=== PATIENT | female | born 1965 | race Caucasian/White ===

== ENCOUNTER 2020-02-29 13:16 | Inpatient (IN) | payer MEDICAID ==
[~2020-02-29] VITALS: Ht 154 cm; Wt 50.0 kg
--- NOTE | 2020-02-29 11:39 | NUR ---
MED REC WAS ENTERED USING THE DISCHARGE ORDERS FROM [facility]. AFTER MEDS ARE CONTINUED I WILL SPEAK WITH THE PT AND MAKE ANY CHANGES TO THE MED REC/NOTES IF NEEDED. I CALLED THE PT ON HER SISTER CELL ([facility] IS TRANSPORTING HER TO ) AND VERIFIED SHE TAKES DULOXETINE 30MG + 60MG TO EQUAL 90MG ONCE DAILY. THERE IS NO EXT MED HISTORY AT THIS TIME SO I COULDNT NOT VERIFY THE DOSING USING THAT RECOURSE
--- NOTE | 2020-02-29 13:15 | NUR ---
PEDRO SHELBY admitted to room 224-1, with an admitting diagnosis of CVA, on 02/29/20 from [facility] via PRIVATE VEHICLE, accompanied by SISTER. PEDRO SHELBY introduced to surroundings, call light, bed controls, phone, TV, temperature control, lights, meal times, smoking policy, visitor policy, side rail policy, bathrooms and showers. Patient Rights given to patient in the handbook. PEDRO SHELBY verbalizes understanding that [facility] is not responsible for the loss or damage to any personal effects or valuables that are kept in the patient's possession during their hospitalization. The following Patient Care Plans were discussed with the PATIENT: Discharge Planning, ALTERED CEREBRAL TISSUE PERFUSION, IMPAIRED MOBILITY, SELF CARE DEFICIT, and KNOWLEDGE DEFICIT: CVA. PEDRO SHELBY verbalizes understanding of Interdisciplinary Patient Education. Patient received Patient Rights Booklet, which includes Privacy Act Statement and Data Collection Information Summary.
[~2020-02-29 13:16] MED LIST: ACETAMINOPHEN 500 MG TAB (TYLENOL) PO PRN; ALOG25TA PO; AMLO2.5T4 PO; ASPI-1238 PO; ATOR40TA70 PO; BISACODYL 10 MG SUPP (DULCOLAX) PR PRN; CARB15DR OU; CHOL200014 PO; CLOP75TA69 PO; DOCUSATE SODIUM 100 MG (COLACE) CAP PO PRN; DOCUSATE SODIUM 100 MG (COLACE) CAP PO SCH; DULO30CA49 PO; DULO60CA59 PO; FLEET ENEMA ADULT 1 EA BTL PR PRN; FLUT9.9S NS; GBPN600T PO; INSU100V16 SQ; INSU100V6 SQ; LACTULOSE SYRUP 10GM/15ML (ENULOSE) 30ML UDC PO PRN; LOPERAMIDE 2 MG (IMODIUM) TABLET PO PRN; LORA10TA7 PO; MELATONIN 3 MG TABLET PO PRN; METF-399 PO; MOME13HF2 IH; MONT10TA97 PO; ONDA4TAB11 PO; ONDANSETRON 4 MG (ZOFRAN) ORAL DISSOLVE TAB PO PRN; POLY17PO6 PO; RT-ALBUINH IH; TRZ50T PO; diphenhydrAMINE 25 MG TAB (BENADRYL) PO PRN; guaiFENesin/CODEINE (ROBITUSSIN AC) 10ML UDC PO PRN; polyethylene glycoL POWDER 17 GM (MIRALAX) PACK PO SCH
--- NOTE | 2020-02-29 13:54 | PM&R Post Admission Assessment ---
PM&R Date of Visit: Feb 29, 2020 Time of Visit: 13:30 History of Present Illness CC: CVA HPI: This is a 54yoWF clinic patient of Paula Schmidt at [facility] who has a h/o DM, HTN, CVA 5 yrs ago who presents to the IRF from [facility] in private vehicle for aggressive rehab following an acute right thalamic infarct. Neurology recommended ASA, Plavix and Lipitor. She continued to smoke and she reports she has a marijuana card. Feet are chronically discolored she reports and there is a right lateral ankle ulceration which was present prior to CVA admit which needs wound care. BM+ and urinating well. She was assessed by PT and in need of aggressive therapy. Left sided hemiparesis will need intense management. She was 2 hours later than expected on arrival to IRF from private vehicle from [facility] and considering h/o meth use a UDS ordered revealing THC. Past Ruiljml-Zpslrt-Qddohe Hx Past Med/Social Hx: Reviewed Nursing Past Med/Soc Hx, Reviewed and Corrections made Patient Social History Marrital Status: single Employed/Student: unemployed Recreational Drug Use: Yes Drug of Choice: THC Smoking Status: Current Everyday Smoker Immunizations Up To Date Date of Pneumonia Vaccine: Dec 06, 2017 PM&R Allergy/Meds/Data Review Allergies Coded Allergies: latex (Verified Allergy, Unknown, Hives, 02/29/20) simvastatin (Verified Allergy, Unknown, 02/29/20) Home Medications Scheduled Alogliptin Benzoate (Nesina), 25 MG PO DAILY, (Reported) Amlodipine Besylate (Amlodipine Besylate), 2.5 MG PO DAILY, (Reported) Aspirin (Aspirin EC), 81 MG PO DAILY, (Reported) Atorvastatin Calcium (Atorvastatin Calcium), 40 MG PO HS, (Reported) Cholecalciferol (Vitamin D3) (Vitamin D3), 100 MCG PO DAILY, (Reported) Clopidogrel Bisulfate (Plavix), 75 MG PO DAILY, (Reported) Duloxetine HCl (Duloxetine HCl), 30 MG PO DAILY, (Reported) Duloxetine HCl (Duloxetine HCl), 60 MG PO DAILY, (Reported) Gabapentin (Gabapentin), 600 MG PO QID, (Reported) Insulin Aspart (Novolog), UNIT SQ AC, (Reported) Insulin Glargine,Hum.rec.anlog (Lantus), 40 UNIT SQ BID, (Reported) Metformin HCl (Metformin HCl), 1,000 MG PO BID WITH MEALS, (Reported) Mometasone/Formoterol (Dulera 100 Mcg/5 Mcg Inhaler), 2 PUFF IH BID, (Reported) Montelukast Sodium (Montelukast Sodium), 10 MG PO HS, (Reported) Trazodone HCl (Trazodone HCl), 50 MG PO HS, (Reported) Scheduled PRN Albuterol Sulfate (Proair Hfa), 1-2 PUFF IH Q4 -6H PRN for SHORTNESS OF BREATH, (Reported) Carboxymethylcellulose Sodium (Refresh Tears), 1 DROP OU DAILY PRN for EYE DISCOMFORT, (Reported) Fluticasone Propionate (Flonase Allergy Relief), 2 SPRAY NS DAILY PRN for RHINITIS, (Reported) Loratadine (Loratadine), 10 MG PO DAILY PRN for ALLERGY SYMPTOMS, (Reported) Ondansetron (Ondansetron Odt), 4 MG PO Q8H PRN for NAUSEA/VOMITING-1ST LINE, (Reported) Polyethylene Glycol 3350 (Miralax), 17 GM PO DAILY PRN for CONSTIPATION-2ND LINE, (Reported) Current Medications Current Medications Reviewed Review of Systems Constitutional: see HPI, malaise, weakness Respiratory: dyspnea on exertion Musculoskeletal: back pain, joint pain Psychiatric/Neurological: Anxiety, Depressed, Tingling, Weakness All Other Systems Reviewed Negative Unless Noted: Yes Physical Exam Physical Exam Vital Signs Capillary Refill : Height, Weight, BMI Height: '" Weight: lbs. oz. kg; BMI Method: General Appearance: No Apparent Distress, WD/WN, Chronically ill, Thin Eyes: Bilateral Eye Normal Inspection, Bilateral Eye PERRL HEENT: PERRL/EOMI, Normal ENT Inspection, Pharynx Normal Neck: Full Range of Motion, Normal Inspection, Non Tender, Supple, Carotid Bruit Respiratory: Chest Non Tender, Lungs Clear, Normal Breath Sounds, No Accessory Muscle Use, No Respiratory Distress Cardiovascular: Regular Rate, Rhythm, No Edema, No Gallop, No JVD, No Murmur, Normal Peripheral Pulses Gastrointestinal: Normal Bowel Sounds, No Organomegaly, No Pulsatile Mass, Non Tender, Soft Back: Normal Inspection, No CVA Tenderness, No Vertebral Tenderness Extremity: Normal Capillary Refill, Normal Inspection, Normal Range of Motion, Non Tender, No Calf Tenderness, No Pedal Edema Neurologic/Psychiatric: Alert, Oriented x3, Normal Mood/Affect, manager digital II-XII Norm as Tested, Abnormal Gait, Motor Weakness (left sided weakness 2/5 upper and lower) Skin: Normal Color, Warm/Dry, Cyanosis (chronic type of feet to mid-tibia) Lymphatic: No Adenopathy PM&R Medical Assessment & Plan REHAB/MEDICAL ASSESSMENT AND PLAN: REHAB IMPAIRMENT GROUP: CVA with left sided weakness ETIOLOGIC DIAGNOSIS: CVA with left sided weakness The comorbidities that impact the patients function and/or functional outcome by: continued smoking and MIGDALIA, frail status at 54yo, prior CVA REHAB PLAN: The patient is being admitted to our comprehensive inpatient rehabilitation facility and can tolerate the intensity of service consisting of at least: 180 minutes of therapy a day, 5 out of 7 days a week Rehab treatment will consist of: PT OT will focus on regaining left sided weakness deficit and increase ADL ability along with ambulation The patient/family has a good understanding of our discharge process and will benefit from an interdisciplinary inpatient rehabilitation program. The patient has potential to make improvement and is in need of at least two of the following multidisciplinary therapies including but not limited to physical, occupational, speech, and prosthetics and orthotics. Additionally the patient will need services from respiratory, nutritional services, wound care, psychology, etc. (Customize this to each patient). Given the patients complex condition and risk of further medical complications, rehabilitation services cannot be safely or effectively provided at a lower level of care such as a nursing home facility. BARRIERS TO DISCHARGE: Poor reserve and continued smoking ESTIMATED LOS: 10 days DISPOSITION: Home RELEVANT CHANGES SINCE PREADMISSION SCREENING: I have compared the patients medical and functional status at the time of the preadmission screening and there are: no changes PROGNOSIS: Fair REHABILITATION GOALS: 1. PT OT will focus on regaining left sided weakness deficit and increase ADL ability along with ambulation All the above goals were reviewed with the patient and he/she is in agreement. By signing this document, I acknowledge that I have personally performed a full physical examination on this patient within 24 hours of admission to this inpatient rehabilitation facility and have determined the patient to be able to tolerate the above course of treatment at an intensive level for a reasonable period of time. I will be completing a detailed individualized Plan of Care for this patient by day #4 of the patients stay based upon the Preadmission Screen, the Post-Admission Evaluation, and the therapy evaluations. Admission Dx/Comorbidities: (1) CVA (cerebral vascular accident) ICD Codes: I63.9 - Cerebral infarction, unspecified (2) Smoker ICD Codes: F17.200 - Nicotine dependence, unspecified, uncomplicated (3) Methamphetamine use ICD Codes: F15.10 - Other stimulant abuse, uncomplicated (4) Tetrahydrocannabinol (THC) dependence ICD Codes: F12.20 - Cannabis dependence, uncomplicated (5) Diabetes mellitus, insulin dependent (IDDM), uncontrolled (6) Hypertension ICD Codes: I10 - Essential (primary) hypertension (7) Hyperlipidemia ICD Codes: E78.5 - Hyperlipidemia, unspecified (8) Frailty ICD Codes: R54 - Age-related physical debility (9) PVD (peripheral vascular disease) ICD Codes: I73.9 - Peripheral vascular disease, unspecified (10) Ankle ulcer ICD Codes: L97.309 - Non-pressure chronic ulcer of unspecified ankle with unspecified severity Assessment/Plan Assessment and Plan Assess & Plan/Chief Complaint Assessment: CVA with left sided weakness Smoker THC dependent Chronic pain DM insulin dependent HTN HLP PVD Right ankle ulcer Plan: Home meds Plavix, ASA, statin IRF protocol JESI MCDONALD DO Feb 29, 2020 13:54
[2020-02-29] MEDS ORDERED: NON-FORMULARY MEDICATION 1 EA EA (Fluticasone Propionate (Flonase Allergy Relief) 2 SPRAY) NS PRN (14:00)
[2020-02-29] MEDS ORDERED: polyethylene glycoL POWDER 17 GM (MIRALAX) PACK PO PRN (14:00)
[2020-02-29] MEDS ORDERED: LORATADINE (CLARITIN) 10 MG TAB PO PRN (14:00)
[2020-02-29] MEDS ORDERED: ENOXAPARIN 40 MG/0.4 ML (LOVENOX) SYR SC SCH (14:00)
[2020-02-29] MEDS ORDERED: RT-ALBUTEROL SULF 2.5 MG/3 ML PRE-MIX VIAL IH PRN (14:00)
[2020-02-29] MEDS ORDERED: NON-FORMULARY MEDICATION 1 EA EA (Carboxymethylcellulose Sodium (Refresh Tears) 1 DROP) OU PRN (14:00)
[2020-02-29] MEDS ORDERED: ONDANSETRON 4 MG (ZOFRAN) ORAL DISSOLVE TAB PO PRN (14:00)
[2020-02-29] MEDS ORDERED: FLUTICASONE NASAL SPRAY (FLONASE) 16 GM BTL NS PRN (14:15)
[2020-02-29] MEDS ORDERED: ARTIFICAL TEARS 0.4 ML UNIT DOSE (REFRESH PLUS) OU PRN (14:15)
--- NOTE | 2020-02-29 14:28 | Physical Therapy Evaluation ---
PT Evaluation-General Medical Diagnosis Admission Date Feb 29, 2020 at 13:16 Medical Diagnosis: CVA Onset Date: Feb 26, 2020 Therapy Diagnosis Therapy Diagnosis: impaired mobility, strength, endurance, left hemiparesis Referral Physician: Wen Mackey DO Reason for Referral: Evaluation/Treatment Medical History Pertinent Medical History: CVA, DM, HTN Reviewed History: Yes Social History Home: Single Level Current Living Status: Children Entry Into Home: Stairs With Railing PT Steps Into Home: 4 Prior Prior Level of Function SCALE: Activities may be completed with or without assistive devices. 2-Tlspkluyic-yezwsej completes the activity by him/herself with no assistance from a helper. 5-Set-up or Clean-up Assistance-helper sets up or cleans up; patient completes activity. [place] assists only prior to or following the activity. 4-Supervision or Touching Assistance-helper provides verbal cues and/or touching/steadying and/or contact guard assistance as patient completes activity. Assistance may be provided throughout the activity or intermittently. 3-Partial/Moderate Assistance-helper does LESS THAN HALF the effort. [place] lift s, holds or supports trunk or limbs, but provides less than half the effort. 2-Substantial/Maximal Assistance-helper does MORE THAN HALF the effort. [place] lifts or holds trunk or limbs and provides more than half the effort. 0-Eppvvmzms-dbndxw does ALL the effort. Patient does none of the effort to complete the activity. Or, the assistance of 2 or more helpers is required for the patient to complete the activity. If activity was not attempted, code reason: 7-Patient Refused. 9-Not Applicable-not attempted and the patient did not perform the activity before the current illness, exacerbation or injury. 10-Not Attempted due to Environmental Limitations-(lack of equipment, weather restraints, etc.). 88-Not Attempted due to Medical Conditions or Safety Concerns. Bed Mobility: 6 Transfers (B,C,W/C): 6 Gait: 6 Stairs: 6 Indoor Mobility (Ambulation): Independent Stairs: Independent Patient states she has weakness previously but was able to ambulate without an assistive device. PT Evaluation-Current Subjective Patient in car, just got to the hospital, has no complaints of pain other than a spot on her lateral left ankle, she has a bandage there, will be co-treating with OT for part of tx due to poor patient mobility, strength, endurance, left hemiparesis, safety and decrease risk of falls, coordinate UE and LE during activity. Pt/Family Goals to be independent at home Objective Patient Orientation: Person, Place, Situation ROM/Strength ROM Lower Extremities WNL Strength Lower Extremities RLE 4/5 gross, LLE 3-/5 gross except for dorsiflexion 1/5 Sensory Vision: Functional Hearing: Functional Sensation Right Lower Extremit: Impaired Sensation Left Lower Extremity: Impaired Transfers Roll Left & Right (QC): 4 Sit to Lying (QC): 4 Lying to Sitting/Side of Bed(Q: 4 Sit to Stand (QC): 3 Chair/Xpi-fn-Alsju Xfer(QC): 3 Toilet Transfer (QC): 3 Car Transfer (QC): 3 Patient performs rolling and supine <-> sit with SBA (she has some difficulty getting left leg into and out of bed but can do it without assist), sit <-> stand and transfers min assist, car transfer min assist. Cues for safety and hand placement, will often sit forcefully. Gait Does the Patient Walk?: Yes Mode of Locomotion: Walk Anticipated Mode of Locomotion: Walk Walk 10 feet (QC): 3 Walk 50 ft with 2 Turns(QC): 3 Walk 150 ft (QC): 88 Walking 10ft/uneven surface-QC: 3 Distance: 10', 60' Gait Assistive Device: FWW Comments/Gait Description Patient can ambulate 60' with a rolling walker with min assist (including 50' with at least 2 turns of 90 degrees and 10' over an uneven surface). Patient needs assist guiding walker, has uncoordinated left side steps, she can also ambulate with POLE FRAMER on the right side with min assist. Wheelchair Training Does the Pt Use a Wheelchair?: Yes Distance: 50' Wheel 50 ft with 2 turns (QC): 3 Wheel 150 ft (QC): 88 Type of Wheelchair: Manual Stairs #of Steps: 1 1 Step (curb) (QC): 3 4 Steps (QC): 88 12 Steps (QC): 88 Patient can go up and down 1 step using a rolling walker with min assist, cues for foot placement. Balance Sitting Static: Normal Sitting Dynamic: Good Standing Static: Fair Standing Dynamic: Poor Picking up an Object (QC): 88 Treatment PT performed bed mobility and transfers, ambulation, WC mobility, stairs, assisted with bathing and dressing and grooming with standing and safety, OT per formed bathing and dressing and grooming and performed UE positioning and safety during activity. Assessment/Needs Patient has impaired mobility, strength, endurance, left hemiparesis. Patient is able to bear weight on left leg and step through with it, she has left knee hyperextension though with weight bearing. Rehab Potential: Fair PT Short Term Goals Short Term Goals Time Frame: Mar 07, 2020 Roll Left & Right: 6 Sit to lyin Lying to sitting on side of be: 6 Sit to stand: 4 Chair/fcm-ii-yhguu transfer: 4 Walk 10 feet: 4 Walk 50 feet with two turns: 4 Walk 150 feet: 4 PT Residential Goals Rigging Worker Goals PT Residential Goals Time Frame: Mar 21, 2020 Roll Left & Right (QC): 6 Sit to Lying (QC): 6 Lying-Sitting on Side/Bed(QC): 6 Sit to Stand (QC): 4 (SBA) Chair/Nsc-sl-Uvlrs Xfer(QC): 4 (SBA) Toilet Transfer (QC): 4 (SBA) Car Transfer (QC): 4 (SBA) Does the Patient Walk: Yes Walk 10 feet (QC): 4 (SBA) Walk 50ft with 2 Turns (QC): 4 (SBA) Walk 150 ft (QC): 4 (SBA) Walking 10ft on Uneven Surface: 4 (SBA) 1 Step (curb) (QC): 4 (CGA) 4 Steps (QC): 4 (CGA) 12 Steps (QC): 88 Picking up an Object (QC): 88 Does the Pt use WC or Scooter?: No Wheel 50 feet with 2 turns (QC: 6 Wheel 150 feet: 6 PT Plan Problem List Problem List: Activity Tolerance, Functional Strength, Safety, Balance, Gait, Transfer, Bed Mobility, ROM Treatment/Plan Treatment Plan: Continue Plan of Care Treatment Plan: Bed Mobility, Education, Functional Activity Cici, Functional Strength, Group Therapy, Gait, Safety, Therapeutic Exercise, Transfers Treatment Duration: Mar 21, 2020 Frequency: At least 5 of 7 days/Wk (IRF) Estimated Hrs Per Day: 1.5 hours per day Patient and/or Family Agrees t: Yes Safety Risks/Education Patient Education: Gait Training, Transfer Techniques, Steps, Correct Positioning, W/C Management, Safety Issues Teaching Recipient: Patient Teaching Methods: Demonstration, Discussion Response to Teaching: Reinforcement Needed Discharge Recommendations Plan Patient will perform bed mobility and transfer training, balance and endurance training, functional strengthening, stair training, gait training, and education, to improve functional mobility and independence at home. Therapy Discharge Recommendati: Home & Family Time/GCodes Time In: 1315 Time Out: 1425 Total Billed Treatment Time: 60 Total Billed Treatment 1 visit EVM 10' FA 50' PT eval from [id number], OT eval from [id number], co-treat from 1335- 1425 HENRY QUILES PT Feb 29, 2020 14:28
[2020-02-29] MEDS: SENNA W/DOCUSATE (SENOKOT S) TABLET PO SCH ×2 (14:30→19:48)
--- NOTE | 2020-02-29 14:31 | Occupational Therapy Eval ---
OT Evaluation-General/PLF Medical Diagnosis Admission Date Feb 29, 2020 at 13:16 Medical Diagnosis: CVA Onset Date: Feb 26, 2020 Therapy Diagnosis Therapy Diagnosis: decreased ADL status Referral Physician: Key Referral Reason: Evaluation/Treatment Medical History Pertinent Medical History: CVA, DM, HTN Additional Medical History L side weakness, HLD Current History Lacunar infarct R thalamus, L sided weakness. Pt admitted to [facility] on 02/29/2020 for continued medication management and skilled therapies. Reviewed History: Yes Social History Home: Single Level Current Living Status: Children (19 y.o daughter) Entry Into Home: Stairs With Railing Steps Into Home: 4 ADL-Prior Level of Function SCALE: Activities may be completed with or without assistive devices. 2-Osvopcahby-bevpmgl completes the activity by him/herself with no assistance from a helper. 5-Set-up or Clean-up Assistance-helper sets up or cleans up; patient completes activity. [place] assists only prior to or following the activity. 4-Supervision or Touching Assistance-helper provides verbal cues and/or touching/steadying and/or contact guard assistance as patient completes activity. Assistance may be provided throughout the activity or intermittently. 3-Partial/Moderate Assistance-helper does LESS THAN HALF the effort. [place] lifts, holds or supports trunk or limbs, but provides less than half the effort. 2-Substantial/Maximal Assistance-helper does MORE THAN HALF the effort. [place] lifts or holds trunk or limbs and provides more than half the effort. 0-Mouchvljp-jrmgsr does ALL the effort. Patient does none of the effort to complete the activity. Or, the assistance of 2 or more helpers is required for the patient to complete the activity. If activity was not attempted, code reason: 7-Patient Refused. 9-Not Applicable-not attempted and the patient did not perform the activity before the current illness, exacerbation or injury. 10-Not Attempted due to Environmental Limitations-(lack of equipment, weather restraints, etc.). 88-Not Attempted due to Medical Conditions or Safety Concerns. ADL PLOF Comments Pt indicates she was independent with ADLs and functional mobility at OF, no AD/AE. She was able to cook, clean, bath and dress, but needs assistance tying shoelaces. Self Care: Needed Some Help Functional Cognition: Independent DME/Equipment: Bath Chair, Grab Bars, Shower OT Current Status Subjective Pt agreeable to OT evaluation and tx. Pt reports some pain in L heel where she scraped it prior to hospitalization. Mental Status/Objective Patient Orientation: Person, Place, Time, Situation Current Glasses/Contacts: Yes Hearing Aids: No Dentures/Partials: Yes Hand Dominance: Right Upper Extremity ROM RUE WFL, Shoulder flexion to approx 160 degrees Decreased LUE, shoulder flexion to approx 85 degrees. Pt able to flex/extend elbow, and flex/extend fingers. Pt reports decreased LUE ROM at PLOF from prior stroke. Upper Extremity Coordination decreased due to decreased functional use of LUE Upper Extremity Sensation numbness in LUE, RUE WFL Upper Extremity Strength RUE grossly 4/5 LUE grossly 3-/5 ADL-Treatment Eating (QC): 6 (Based on pt report and clinical judgement, pt independent. Able to use utensils, cut food and bring food/drink to mouth) Oral Hygiene (QC): 4 (CGA standing at sink. Pt able to open toothpaste and brush teeth using RUE) Shower/Bathe Self (QC): 4 (CGA in stand at GBS) Upper Body Dressing (QC): 3 (Pt able to doff independently, min A donning. Assist pulling shirt over L shoulder) Lower Body Dressing (QC): 4 (CGA, pt able to doff/don pants at GBS) On/Off Footwear (QC): 3 (Pt able to doff shoes/socks. Pt donned socks with SBA. Based on clinical judgement, pt would require assistance tying shoes.) Toileting Hygiene (QC): 4 (CGA, pt able to complete toilet hygiene and clothing management) Other Treatments OT educated pt on purpose and benefit of OT, she verbalized understanding. Pt provided information about PLOF and home set up and participated in UE screen. OT/PT cotreat due to skill of 2 clinicians required which a rehabilitation counsellor could not perform in order to coordinate UE/LEs, dynamic standing balance, and due to pt's limitations in strength and endurance. OT focused on UE placement, cues for sequencing and safety and ADLs, PT focused on LE placement, gross overall movements, and mobility. Pt used FWW to walk over uneven surface, up/down 1 step, and down mccullough towards her room. Pt required seated rest break half-way. Once in room, pt completed toileting, then transferred to ND where she completed bathing/dressing. Pt used hand held assist to ambulate to sink where she brushed her hair and her teeth with CGA. Pt then transferred to bed. Post tx, pt laying in bed, call light in reach and all needs met. Education OT Patient Education: Correct positioning, Energy conservation, Modified ADL techniques, Progress toward Goal/Update tx plan, Purpose of tx/functional activities, Rehab process, Safety issues, Transfer techniques Teaching Recipient: Patient Teaching Methods: Discussion Response to Teaching: Verbalize Understanding OT Short Term Goals Short Term Goals Time Frame: Mar 13, 2020 Shower/bathe self: 5 Upper body dressin Lower body dressin Putting on/taking off footwear: 5 OT Nursing Assistant Goals [facility] Goals Time Frame: Mar 22, 2020 Eating (QC): 6 Oral Hygiene (QC): 6 Toileting Hygiene (QC): 6 Shower/Bathe Self (QC): 6 Upper Body Dressing (QC): 6 Lower Body Dressing (QC): 6 On/Off Footwear (QC): 6 Additional Goals: 1-Demonstrate ADL Tasks, 2-Verbalize Understanding, 3- ImproveStrength/Cici 1=Demonstrate adherence to instructed precautions during ADL tasks. 2=Patient will verbalize/demonstrate understanding of assistive devices/modifications for ADL. 3=Patient will improve strength/tolerance for activity to enable patient to perform ADL's. OT Education/Plan Problem List/Assessment Assessment: Decreased Activ Tolerance, Decreased UE Strength, Impaired Funct Balance, Impaired I ADL's, Impaired Self-Care Skills, Restricted Funct UE ROM Discharge Recommendations Plan/Recommendations: Continue POC Treatment Plan/Plan of Care Patient would benefit from OT for education, treatment and training to promote independence in ADL's, mobility, safety and/or upper extremity function for ADL's. Plan of Care: ADL Retraining, Functional Mobility, Group Exercise/Act as Ind, UE Funct Exercise/Act, UE Neuromus Re-Ed/Coord Treatment Duration: Mar 22, 2020 Frequency: At least 5 of 7 days/Wk (IRF) Estimated Hrs Per Day: 1.5 hours per day (1-1.5 hours per day) Agreement: Yes Rehab Potential: Fair Time/GCodes Start Time: 13:25 Stop Time: 14:25 Total Time Billed (hr/min): 60 Billed Treatment Time [id number] OT eval, [id number] cotreat 1, EVM (10'), FA (15'), ADL 2 (35') CHAGO HULL OT Feb 29, 2020 14:31
[2020-02-29 14:35] VITALS: BP 135/65
--- NOTE | 2020-02-29 14:59 | ST Cognitive Linguistic Eval ---
Speech Evaluation-General Medical Diagnosis CVA Onset Date: Feb 26, 2020 Therapy Diagnosis Therapy Diagnosis: Cognitive-communication Precautions Precautions/Isolations: Fall Prevention, Standard Precautions Referral Referring Physician: Dr. Mackey Medical History Pertinent Medical History: CVA, DM, HTN Reviewed History: Yes Social History Current Living Status: Children (19 y.o daughter) Speech PLF-Current Status Prior Level of Function Patient lives at home with her 19 y/o daughter. Daughter assists the patient with her needs due to CVA 5 years ago. Subjective Patient was pleasant and cooperative with the cognitive assessment. Language Eval: Auditory Comprehends Simple Yes/No Ques: Functional Indent/Objects Multiple [place]: Functional Ident/Pics in Multiple [place]: Functional Follows 1-Step Commands: Functional Follows Complex Directions: Functional Follows General Conversations: Functional Language Eval: Verbal Language Completes Spontaneous Greeting: Functional Produces Auto, Serial Info: Functional Imitates Simple Words/Phrases: Functional Word Finding: Functional Requests Basic Needs: Functional States Basic Personal Info: Functional Expresses Complex Ideas: Mild Objective Cognitive Domain Attention: WNL Memory: WNL Problem Solving: Functional Executive Functions: WNL Visuospatial Skills: WNL Composite Severity Rating: WNL Clock Drawing Severity Rating: WNL Objective Formal/Standardized Tests [facility] Mental Status (RUST) Results 28/30, within normal range of function Oral Motor/Speech Production Patient has some mild slurring which she states is worse when she's tired, however her intelligibility is at 90%. Impression Patient is a pleasant 54 y/o female who was admitted to the ARU s/p CVA. Patient was given the SLUMS at bedside with a score of 28/30 obtained. Patient has some mild slurring, however her intelligibility is at 90%. Patient's current level of function does not require further ST services at this time. Speech Patient Assess Expression of Ideas/Wants: Expression (4) Understanding Verbal Content: Understands (4) Brief Interview-Mental Status: Yes Repetition of Three Words: Three (3) Temporal Orientation: Year: Correct (3) Temporal Orientation: Month: Accurate within 5 days(2) Temporal Orientation: Day: Correct (1) Recall : Wear to say "Sock": Yes, no cue required (2) Recall : Color: Yes, after cueing (1) Recall : Bed: Yes,after cueing (1) Memory/Recall Ability: Current season, That he or she is in a hsp/hsp unit Speech-Plan Patient/Family Goals Patient/Family Goals: Patient plans on returning to her home where she lives with her 19 y/o daughter. Treatment Plan Speech Therapy Treatment Plan: Discontinue ST Treatment Duration: Feb 29, 2020 Frequency: 1 time per week Estimated Hrs Per Day: .5 hour per day Rehab Potential: Fair Barriers to Learning: None identified for cognitive Pt/Family Agrees to Plan: Yes Safety Risks/Education Teaching Recipient: Patient Teaching Methods: Discussion Response to Teaching: Verbalize Understanding Education Topics Provided: Safety within her room, communication of wants/needs Time Speech Therapy Time In: 14:25 Speech Therapy Time Out: 14:55 Total Billed Time: 30 Billed Treatment Time 1, NATHALY Saavedra Feb 29, 2020 14:59
[2020-02-29] MEDS: ENOXAPARIN 30 MG/0.3 ML (LOVENOX) SYR SC SCH (15:43)
[2020-02-29] MEDS: inSUlin ASPART (NovoLOG) 1 UNIT/0.01 ML (CHARGE PER UNIT) SC SCH ×2 (15:45→20:24)
[2020-02-29 16:10] LABS: BENZODIAZEPINES SCREEN URINE NEGATIVE (NEGATIVE); COCAINE SCREEN URINE NEGATIVE (NEGATIVE)
[2020-02-29 16:11] LABS: AMPHETAMINE SCREEN, URINE NEGATIVE (NEGATIVE); BARBITURATE SCREEN URINE NEGATIVE (NEGATIVE); CANNABINOID SCREEN, URINE POSITIVE (NEGATIVE); METHADONE STAT NEGATIVE (NEGATIVE); METHAMPHETAMINE SCREEN URINE S NEGATIVE (NEGATIVE); OPIATE SCREEN URINE NEGATIVE (NEGATIVE); OXYCODONE STAT NEGATIVE (NEGATIVE); PROPOXYPHENE STAT NEGATIVE (NEGATIVE); TRICYCLIC ANTIDEPRESSANTS SCRE NEGATIVE (NEGATIVE)
[2020-02-29 16:16] VITALS: BP 134/63
--- NOTE | 2020-02-29 16:53 | NUR ---
PATIENT STATES THAT SHE IS A CURRENT EVERYDAY SMOKER. REFUSING NICOTINE PATCH.
[2020-02-29] MEDS: GABAPENTIN 600 MG (NEURONTIN) TAB PO SCH ×2 (17:33→19:48)
[2020-02-29] MEDS: metFORMIN 500 MG (GLUCOPHAGE) TAB PO SCH (17:33)
[2020-02-29] MEDS ORDERED: NON-FORMULARY MEDICATION 1 EA EA (Metformin HCl 1,000 MG) PO SCH (18:00)
--- NOTE | 2020-02-29 18:24 | NUR ---
OPEN AREA NOTED ON OUTSIDE OF LEFT ANKLE. COVERED WITH ALLEVYN DRESSING. PATIENT STATES THAT SHE HIT IT ON SOMETHING A FEW WEEKS AGO AND THEN HIT IT AGAIN WHILE SHE WAS AT [facility].
[2020-02-29] MEDS: ACETAMINOPHEN 325 MG TABLET PO PRN (19:48)
[2020-02-29] MEDS: DOCUSATE SODIUM 100 MG (COLACE) CAP PO SCH (19:48)
[2020-02-29] MEDS: traZODone 50 MG (DESYREL) TAB PO SCH (19:48)
[2020-02-29] MEDS: MONTELUKAST 10 MG (SINGULAIR) TAB PO SCH (19:48)
[2020-02-29] MEDS: polyethylene glycoL POWDER 17 GM (MIRALAX) PACK PO SCH (19:49)
[2020-02-29] MEDS ORDERED: NON-FORMULARY MEDICATION 1 EA EA (Insulin Glargine,Hum.rec.anlog (Lantus) 40 UNIT) SQ SCH (21:00)
[2020-02-29] MEDS ORDERED: NON-FORMULARY MEDICATION 1 EA EA (Mometasone/Formoterol (Dulera 100 Mcg/5 Mcg Inhaler) 2 P IH SCH (21:00)
[2020-02-29] MEDS: ADVAIR HFA 45/21 MCG INHALER 8 GM IH SCH (21:53)
[2020-03-01 05:44] VITALS: BP 121/65
[2020-03-01] MEDS: inSUlin ASPART (NovoLOG) 1 UNIT/0.01 ML (CHARGE PER UNIT) SC SCH ×4 (05:49→21:03)
[2020-03-01] MEDS ORDERED: NON-FORMULARY MEDICATION 1 EA EA (Duloxetine HCl 60 MG) PO SCH (09:00)
[2020-03-01] MEDS ORDERED: ALOGLIPTIN BENZOATE 25 MG PO SCH (09:00)
[2020-03-01] MEDS ORDERED: NON-FORMULARY MEDICATION 1 EA EA (Cholecalciferol (Vitamin D3) (Vitamin D3) 100 MCG) PO SCH (09:00)
[2020-03-01] MEDS: polyethylene glycoL POWDER 17 GM (MIRALAX) PACK PO SCH ×2 (09:08→21:05)
[2020-03-01] MEDS: GABAPENTIN 600 MG (NEURONTIN) TAB PO SCH ×4 (09:09→21:04)
[2020-03-01] MEDS: amLODIPine 2.5MG (NORVASC) TAB PO SCH (09:09)
[2020-03-01] MEDS: SENNA W/DOCUSATE (SENOKOT S) TABLET PO SCH ×2 (09:09→21:05)
[2020-03-01] MEDS: LINAGLIPTIN (TRADJENTA) 5 MG TABLET PO SCH (09:09)
[2020-03-01] MEDS: metFORMIN 500 MG (GLUCOPHAGE) TAB PO SCH ×2 (09:09→17:54)
[2020-03-01] MEDS: DULoxetine 30 MG (CYMBALTA) CAP PO SCH ×2 (09:09→09:10)
[2020-03-01] MEDS: ASPIRIN E.C. 81 MG (ECOTRIN) TAB PO SCH (09:09)
[2020-03-01] MEDS: DOCUSATE SODIUM 100 MG (COLACE) CAP PO SCH ×2 (09:09→21:05)
[2020-03-01] MEDS: VITAMIN D3 25 MCG (1,000 UNITS) TABLET PO SCH (09:10)
[2020-03-01] MEDS: CLOPIDOGREL 75 MG (PLAVIX) TABLET PO SCH (09:10)
[2020-03-01 10:28] LABS: BASOPHILS # (AUTO) 0.1 10^3/uL (0.0-0.1); BASOPHILS % (AUTO) 1 % (0-10); EOSINOPHILS # (AUTO) 0.2 10^3/uL (0.0-0.3); EOSINOPHILS % (AUTO) 3 % (0-10); HEMATOCRIT 39 % (35-52); HEMOGLOBIN 12.8 g/dL (11.5-16.0); LYMPHOCYTES # (AUTO) 2.1 10^3/uL (1.0-4.0); LYMPHOCYTES % (AUTO) 24 % (12-44); MEAN CORPUSCULAR HEMOGLOBIN 30 pg (25-34); MEAN CORPUSCULAR HGB CONC 33 g/dL (32-36); MEAN CORPUSCULAR VOLUME 89 fL (80-99); MEAN PLATELET VOLUME 10.5 fL (9.0-12.2); MONOCYTES # (AUTO) 0.6 10^3/uL (0.0-1.0); MONOCYTES % (AUTO) 7 % (0-12); NEUTROPHILS # (AUTO) 5.7 10^3/uL (1.8-7.8); NEUTROPHILS % (AUTO) 66 % (42-75); PLATELET COUNT 195 10^3/uL (130-400); WHITE BLOOD COUNT 8.6 10^3/uL (4.3-11.0)
[2020-03-01 10:40] LABS: ALBUMIN 3.1 GM/DL (3.2-4.5); CHLORIDE 107 MMOL/L (98-107); POTASSIUM 4.1 MMOL/L (3.6-5.0); SODIUM 144 MMOL/L (135-145)
[2020-03-01 10:42] LABS: CALCIUM 8.3 MG/DL (8.5-10.1)
[2020-03-01 10:43] LABS: GLUCOSE 198 MG/DL (70-105); TOTAL PROTEIN 5.4 GM/DL (6.4-8.2)
[2020-03-01 10:44] LABS: CARBON DIOXIDE 26 MMOL/L (21-32)
[2020-03-01 10:45] LABS: BILIRUBIN,TOTAL 0.3 MG/DL (0.1-1.0)
[2020-03-01 10:46] LABS: ALKALINE PHOSPHATASE 71 U/L (40-136); CREATININE SERUM 0.58 MG/DL (0.60-1.30); GFR ESTIMATED > 60
[2020-03-01 10:48] LABS: BUN/CREATININE RATIO 33
[2020-03-01 10:49] LABS: ALANINE AMINOTRANSFERASE 11 U/L (0-55)
[2020-03-01] MEDS: ADVAIR HFA 45/21 MCG INHALER 8 GM IH SCH ×2 (11:15→22:28)
--- NOTE | 2020-03-01 11:44 | Individualized Plan of Care ---
Individualized Plan of Care Rehab Nursing IPOC Order Admission Date Feb 29, 2020 at 13:16 Current Orders Orders Admission Order(Inpt,Obs,Sdc) (02/28/20 20:24) Vital Signs: Per Unit Policy ( 08,16,00 (02/28/20 20:24) Lionel Zhou 09,21 (02/28/20 20:24) Sequential Compression Device Q4H (02/28/20 20:24) Yarn Man-Inpt Rehab Con (02/28/20 20:24) Rehab Nursing Orders-Ipoc (02/28/20 20:24) Physical Therapy Rehab Orders (02/28/20 20:24) Occupational Therapy Rehab Ord (02/28/20 20:24) Speech Therapy Rehab Orders (02/28/20 20:24) General/Regular (02/29/20 Breakfast) Intake & Output 06,14,22 (02/28/20 20:24) Precautions (Aru) (02/28/20 20:24) Weekly Weight WEEK (02/28/20 20:24) Rehab-Intensity Of Therapy (02/28/20 20:24) Initiate Admission Nursing Pro .admission (02/28/20 20:24) Acetaminophen Tablet (Tylenol Tablet) (02/28/20 20:30) Alprazolam Tablet (Xanax Tablet) (02/28/20 20:30) Calcium Carbonate Chew Tablet (Antacid C (02/28/20 20:30) Diphenhydramine Tablet (Benadryl Tablet) (02/28/20 20:30) Docusate Sodium Capsule (Colace Capsule) (02/28/20 21:00) Docusate Sodium Capsule (Colace Capsule) (02/28/20 20:30) Bisacodyl Suppository (Dulcolax Supposit (02/28/20 20:30) Lactulose Oral Solution (Enulose Oral So (02/28/20 20:30) Na Phos/Na Biphos Enema (Fleet Enema Ras (02/28/20 20:30) Guaifenesin/Codeine Syrup (Robitussin Ac (02/28/20 20:30) Loperamide Tablet (Imodium Tablet) (02/28/20 20:30) Melatonin Tablet (Melatonin Tablet) (02/28/20 20:30) Polyethylene Glycol Powder Pkt (Miralax (02/28/20 21:00) Ondansetron Oral Dissolve Tab (Zofran (02/28/20 20:30) Senna S Tablet (Senokot S Tablet) (02/28/20 21:00) Initiate Admission Nursing Pro .admission (02/28/20 20:24) Follow-Up Appointment (02/29/20 10:54) Drug Screen Stat (Urine) (02/29/20 12:54) Admission Arrival Bed Request (02/29/20 13:16) Acetaminophen Tablet/Caplet (Tylenol T (02/29/20 13:30) Docusate Sodium Capsule (Colace Capsule) (02/29/20 21:00) Polyethylene Glycol Powder Pkt (Miralax (02/29/20 21:00) Albuterol Pre-Mix Nebs (Rt) (Proventil (02/29/20 14:00) Amlodipine Tablet (Norvasc Tablet) (03/01/20 09:00) Aspirin Enteric Coated Tablet (Ecotrin T (03/01/20 09:00) Atorvastatin Tablet (Lipitor) (02/29/20 21:00) Clopidogrel Tablet (Plavix Tablet) (03/01/20 09:00) Duloxetine Capsule (Cymbalta Capsule) (03/01/20 09:00) Gabapentin Capsule/Tablet (Neurontin Cap (02/29/20 17:00) Loratadine Tablet (Claritin Tablet) (02/29/20 14:00) Montelukast Tablet (Singulair Tablet) (02/29/20 21:00) Ondansetron Oral Dissolve Tab (Zofran (02/29/20 14:00) Polyethylene Glycol Powder Pkt (Miralax (02/29/20 14:00) Trazodone Tablet (Desyrel Tablet) (02/29/20 21:00) (Nf) Alogliptin Benzoate (Nesina) (03/01/20 09:00) (Nf) Carboxymethylcellulose Sodium (Refr (02/29/20 14:00) (Nf) Cholecalciferol (Vitamin D3) (Vitam (03/01/20 09:00) (Nf) Duloxetine Hcl (03/01/20 09:00) (Nf) Fluticasone Propionate (Flonase All (02/29/20 14:00) (Nf) Insulin Glargine,Hum.Rec.Anlog (James (02/29/20 21:00) (Nf) Metformin Hcl (02/29/20 18:00) (Nf) Mometasone/Formoterol (Dulera 100 M (02/29/20 21:00) Enoxaparin Injection (Lovenox Injection) (02/29/20 14:00) Duloxetine Capsule (Cymbalta Capsule) (03/01/20 09:00) Cholecalciferol Capsule/Tablet (Vitamin (03/01/20 09:00) Insulin Determir (Per Unit) (Levemir (Pe (02/29/20 21:00) Fluticasone Nasal [place] (Flonase Nasal S (02/29/20 14:15) Metformin Tablet (Glucophage Tablet) (02/29/20 18:00) Carboxymethylcell Ophth Soln (Refresh Pl (02/29/20 14:15) Fluticasone/Salmeterol 45/21 (Advair Hfa (02/29/20 20:00) Insulin Aspart (Novolog) (Novolog (Charg (02/29/20 16:00) Accucheck Achs ACHS (02/29/20 14:08) Cho 60g/M 1snack (16-2000 Ricardo) (02/29/20 Lunch) Linagliptin Tablet (Tradjenta Tablet) (03/01/20 09:00) Patient Visit (02/29/20 ) Pt Eval Moderate Complexity (02/29/20 ) Functional Activities, Ea 15 (02/29/20 ) Patient Visit (02/29/20 ) Speech Sound Lang Comp (02/29/20 ) Enoxaparin Injection (Lovenox Injection) (02/29/20 15:00) Ambulate 08,12,20 (02/29/20 15:07) Sequential Compression Device Q4H (02/29/20 15:07) Dvt/Vte Risk - Notifiy Physici Q4H (02/29/20 15:07) Edu Tobacco/Smoking Cessation .prn (02/29/20 15:17) Cbc With Automated Diff (03/01/20 10:08) Comprehensive Metabolic Panel (03/01/20 10:08) Hemoglobin A1c (03/01/20 10:08) Bisacodyl Suppository (Dulcolax Supposit (03/01/20 12:00) Bisacodyl Suppository (Dulcolax Supposit (03/01/20 12:00) Soap Suds Enema (03/01/20 11:54) Lactulose Oral Solution (Enulose Oral So (03/01/20 12:00) Lactulose Oral Solution (Enulose Oral So (03/01/20 21:00) Magnesium Citrate Oral Soln (Citrate Of (03/01/20 12:00) Rehab Nursing Orders: Ongoing Assess. of Function Status, Bladder Management, Bladder Scan, Bladder Training, Bowel Management, Bowel Training, Disease Management & Educaiton, DVT Prophylaxis, Fall Prevention, Fluid /Electrolyte/Nutrition Mgmt, Infection Prevention, Medication Management & Education, Management of Risks & Complications, Management of Skin Intergrity, Nutrition Management, Pain Management, Patient/Family Support, Safety Management, Wound Management Intensity of Therapy to be met Patient to be seen: Min.3h per day/5 of 7d PT IPOC Problem List: Activity Tolerance, Functional Strength, Safety, Balance, Gait, Transfer, Bed Mobility, ROM Treatment Plan: Continue Plan of Care Bed Mobility, Education, Functional Activity Cici, Functional Strength, Group Therapy, Gait, Safety, Therapeutic Exercise, Transfers Treatment Duration: Mar 21, 2020 Frequency: Modified Program (IRF) Estimated Hrs Per Day: 1.5 hours per day OT IPOC Problems: Decreased Activ Tolerance, Decreased UE Strength, Impaired Funct Balance, Impaired I ADL's, Impaired Self-Care Skills, Restricted Funct UE ROM OT Treatment, Training and Edu: Yes Plan of Care: ADL Retraining, Functional Mobility, Group Exercise/Act as Ind, UE Funct Exercise/Act, UE Neuromus Re-Ed/Coord Treatment Duration: Mar 22, 2020 Frequency: 5 times per week Estimated Hrs Per Day: 1.[address] IPOC Speech Therapy Treatment Plan: Discontinue ST Treatment Duration: Feb 29, 2020 Frequency: 1 time per week Estimated Hrs Per Day: .5 hour per day Yarn Man/Case Mgmt Yarn Man/Case Managemen: Discharge Planning Dietitian/Eggs Inspector Dietitian/Eggs Inspector to monitor nutritional status and make changes and/or recommendations as needed and work with speech pathology on dietary upgrades as the occur. Physician IPOC Medical Issues being managed closely and that require the 24 hour availability of a physician: Recent catastrophic CVA with DM with labile levels and smoker and high risk for decompensation will need close physician supervision Medical Issues: Bowel/Bladder Function, DVT Prophylaxis, Falls Precautions, Fluid/Electrolyte/Nutrition Balance, Infection Protection, Pain Management, Wound Care Brief Synthesis of Preadmission Screen, Post-Admission Evaluation, and Therapy Evaluations: PT OT will focus on regaining function with ambulation and ADL's and will need aggressive treatment with use of AD in order to return home with daughter Medical Prognosis: Fair Anticipated Length of Stay: 14 days JESI MCDONALD DO Mar 01, 2020 11:44
--- NOTE | 2020-03-01 11:44 | PM&R Progress Note ---
Subjective HPI/CC On Admission Date Seen by Provider: Mar 01, 2020 Time Seen by Provider: 10:00 Subjective/Events-last exam 03/01/20: Settling in well No pain reported Labs checked and all stable No BM since 02/17 so will initiate more aggressive regimen Left sided weakness is a challenge for the patient Conferred with metal tester of Systems General: Fatigue Neurological: Weakness, Incoordination Objective Exam Vital Signs Vital Signs Date Time Temp Pulse Resp B/P (MAP) Pulse Ox O2 Delivery O2 Flow Rate FiO2 03/01/20 16:37 37.6 92 16 143/73 (96) 97 03/01/20 09:00 Room Air Capillary Refill : Less Than 3 Seconds General Appearance: No Apparent Distress, WD/WN, Chronically ill, Thin HEENT: PERRL/EOMI, Normal ENT Inspection, Pharynx Normal Neck: Full Range of Motion, Normal Inspection, Non Tender, Supple, Carotid Bruit Respiratory: Chest Non Tender, Lungs Clear, Normal Breath Sounds, No Accessory Muscle Use, No Respiratory Distress Cardiovascular: Regular Rate, Rhythm, No Edema, No Gallop, No JVD, No Murmur, Normal Peripheral Pulses Gastrointestinal: Normal Bowel Sounds, No Organomegaly, No Pulsatile Mass, Non Tender, Soft Back: Normal Inspection, No CVA Tenderness, No Vertebral Tenderness Extremity: Normal Capillary Refill, Normal Inspection, Normal Range of Motion, Non Tender, No Calf Tenderness, No Pedal Edema Neurologic/Psychiatric: Alert, Oriented x3, Normal Mood/Affect, web design specialist II-XII Norm as Tested, Abnormal Gait, Motor Weakness (left sided weakness 2/5 upper and lower) Skin: Normal Color, Warm/Dry, Cyanosis (chronic type of feet to mid-tibia) Lymphatic: No Adenopathy Results/Procedures Lab Laboratory Tests 03/01/20 10:25 Patient resulted labs reviewed. FIM Transfers Therapy Code Descriptions/Definitions Functional [place] Measure: 0=Not Assessed/NA 4=Minimal Assistance 1=Total Assistance 5=Supervision or Setup 2=Maximal Assistance 6=Modified [place] 3=Moderate Assistance 7=Complete IndependenceSCALE: Activities may be completed with or without assistive devices. 6-Aqjvicivlx-sreqjcn completes the activity by him/herself with no assistance from a helper. 5-Set-up or Clean-up Assistance-helper sets up or cleans up; patient completes activity. [place] assists only prior to or following the activity. 4-Supervision or Touching Assistance-helper provides verbal cues and/or touching/steadying and/or contact guard assistance as patient completes activity. Assistance may be provided throughout the activity or intermittently. 3-Partial/Moderate Assistance-helper does LESS THAN HALF the effort. [place] lifts, holds or supports trunk or limbs, but provides less than half the effort. 2-Substantial/Maximal Assistance-helper does MORE THAN HALF the effort. [place] lifts or holds trunk or limbs and provides more than half the effort. 7-Htbxlxoos-tvxtqt does ALL the effort. Patient does none of the effort to complete the activity. Or, the assistance of 2 or more helpers is required for the patient to complete the activity. If activity was not attempted, code reason: 7-Patient Refused. 9-Not Applicable-not attempted and the patient did not perform the activity before the current illness, exacerbation or injury. 10-Not Attempted due to Environmental Limitations-(lack of equipment, weather restraints, etc.). 88-Not Attempted due to Medical Conditions or Safety Concerns. Roll Left to Right (QC): 4 Sit to Lying (QC): 4 Sit to Stand (QC): 3 Chair/Wsn-fg-Ajflv Xfer(QC): 3 Car Transfer (QC): 3 Gait Training Does the Patient Walk?: Yes Walk 10 feet (QC): 3 Walk 50 ft with 2 Turns(QC): 3 Walk 150 ft (QC): 88 Walking 10ft/uneven surface-QC: 3 Gait Assistive Device: FWW Wheelchair Training Does the Pt Use a Wheelchair?: Yes Distance: 50' Wheel 50 ft with 2 turns (QC): 3 Wheel 150 ft (QC): 88 Type of Wheelchair: Manual Stair Training #of Steps: 1 1 Step (curb) (QC): 3 4 Steps (QC): 88 12 Steps (QC): 88 Balance Picking up an Object (QC): 88 ADL-Treatment Eating (QC): 6 (Based on pt report and clinical judgement, pt independent. Able to use utensils, cut food and bring food/drink to mouth) Oral Hygiene (QC): 4 (CGA standing at sink. Pt able to open toothpaste and brush teeth using RUE) Shower/Bathe Self (QC): 4 (CGA in stand at [facility]) Upper Body Dressing (QC): 3 (Pt able to doff independently, min A donning. Assist pulling shirt over L shoulder) Lower Body Dressing (QC): 4 (CGA, pt able to doff/don pants at [facility]) On/Off Footwear (QC): 3 (Pt able to doff shoes/socks. Pt donned socks with SBA. Based on clinical judgement, pt would require assistance tying shoes.) Toileting Hygiene (QC): 4 (CGA, pt able to complete toilet hygiene and clothing management) Assessment/Plan Assessment and Plan Assess & Plan/Chief Complaint Assessment: CVA with left sided weakness Smoker THC dependent Chronic pain DM insulin dependent HTN HLP PVD Right ankle ulcer Constipation Plan: Home meds Plavix, ASA, statin IRF protocol 03/01/20: Labs reviewed Pain control Aggressive therapy Wound care on ankle ulcer BM aggressive regimen (1) CVA (cerebral vascular accident) (2) Smoker (3) Methamphetamine use (4) Tetrahydrocannabinol (THC) dependence (5) Diabetes mellitus, insulin dependent (IDDM), uncontrolled (6) Hypertension (7) Hyperlipidemia (8) Frailty (9) PVD (peripheral vascular disease) (10) Ankle ulcer JESI MCDONALD DO Mar 01, 2020 11:44
[2020-03-01] MEDS ORDERED: MAGNESIUM CITRATE 300 ML BTL PO ONE (12:00)
[2020-03-01] MEDS ORDERED: LACTULOSE SYRUP 10GM/15ML (ENULOSE) 30ML UDC PO ONE (12:00)
[2020-03-01] MEDS ORDERED: BISACODYL 10 MG SUPP (DULCOLAX) PR PRN (12:00)
[2020-03-01] MEDS ORDERED: BISACODYL 10 MG SUPP (DULCOLAX) PR ONE (12:00)
[2020-03-01] MEDS: ENOXAPARIN 30 MG/0.3 ML (LOVENOX) SYR SC SCH (16:24)
[2020-03-01 16:37] VITALS: BP 143/73
[2020-03-01] MEDS: traZODone 50 MG (DESYREL) TAB PO SCH (21:04)
[2020-03-01] MEDS: MONTELUKAST 10 MG (SINGULAIR) TAB PO SCH (21:04)
[2020-03-01] MEDS: LACTULOSE SYRUP 10GM/15ML (ENULOSE) 30ML UDC PO SCH (21:05)
[2020-03-02] MEDS: ALPRAZolam 0.25 MG (XANAX) TAB PO PRN (01:02)
[2020-03-02] MEDS: ACETAMINOPHEN 325 MG TABLET PO PRN ×2 (01:02→14:45)
[2020-03-02 05:27] VITALS: BP 131/66
[2020-03-02] MEDS: inSUlin ASPART (NovoLOG) 1 UNIT/0.01 ML (CHARGE PER UNIT) SC SCH ×4 (05:44→21:38)
--- NOTE | 2020-03-02 07:27 | PM&R Progress Note ---
Subjective HPI/CC On Admission Date Seen by Provider: Mar 02, 2020 Time Seen by Provider: 13:30 Subjective/Events-last exam 03/02/20: Sugar too low this am Holding Levemir for now SSI A for now BM x 3 after constipation since 02/17 Lyrica may be initiated in place on Gabapentin as she has requested 03/01/20: Settling in well No pain reported Labs checked and all stable No BM since 02/17 so will initiate more aggressive regimen Left sided weakness is a challenge for the patient Conferred with watch inspector final movement of Systems General: Fatigue, Malaise Neurological: Weakness, Incoordination Objective Exam Vital Signs Vital Signs Date Time Temp Pulse Resp B/P (MAP) Pulse Ox O2 Delivery O2 Flow Rate FiO2 03/02/20 17:58 37.1 84 16 117/65 (82) 96 Room Air Capillary Refill : Less Than 3 Seconds General Appearance: No Apparent Distress, WD/WN, Chronically ill, Thin HEENT: PERRL/EOMI, Normal ENT Inspection, Pharynx Normal Neck: Full Range of Motion, Normal Inspection, Non Tender, Supple, Carotid Bruit Respiratory: Chest Non Tender, Lungs Clear, Normal Breath Sounds, No Accessory Muscle Use, No Respiratory Distress Cardiovascular: Regular Rate, Rhythm, No Edema, No Gallop, No JVD, No Murmur, Normal Peripheral Pulses Gastrointestinal: Normal Bowel Sounds, No Organomegaly, No Pulsatile Mass, Non Tender, Soft Back: Normal Inspection, No CVA Tenderness, No Vertebral Tenderness Extremity: Normal Capillary Refill, Normal Inspection, Normal Range of Motion, Non Tender, No Calf Tenderness, No Pedal Edema Neurologic/Psychiatric: Alert, Oriented x3, Normal Mood/Affect, mathematics technician II-XII Norm as Tested, Abnormal Gait, Motor Weakness (left sided weakness 2/5 upper and lower) Skin: Normal Color, Warm/Dry, Cyanosis (chronic type of feet to mid-tibia) Lymphatic: No Adenopathy Results/Procedures Lab Patient resulted labs reviewed. FIM Transfers Therapy Code Descriptions/Definitions Functional [place] Measure: 0=Not Assessed/NA 4=Minimal Assistance 1=Total Assistance 5=Supervision or Setup 2=Maximal Assistance 6=Modified [place] 3=Moderate Assistance 7=Complete IndependenceSCALE: Activities may be completed with or without assistive devices. 4-Aewwkiknbv-oggwvxi completes the activity by him/herself with no assistance from a helper. 5-Set-up or Clean-up Assistance-helper sets up or cleans up; patient completes activity. [place] assists only prior to or following the activity. 4-Supervision or Touching Assistance-helper provides verbal cues and/or touching/steadying and/or contact guard assistance as patient completes activity. Assistance may be provided throughout the activity or intermittently. 3-Partial/Moderate Assistance-helper does LESS THAN HALF the effort. [place] lifts, holds or supports trunk or limbs, but provides less than half the effort. 2-Substantial/Maximal Assistance-helper does MORE THAN HALF the effort. [place] lifts or holds trunk or limbs and provides more than half the effort. 6-Xvffewvpx-pbsowv does ALL the effort. Patient does none of the effort to complete the activity. Or, the assistance of 2 or more helpers is required for the patient to complete the activity. If activity was not attempted, code reason: 7-Patient Refused. 9-Not Applicable-not attempted and the patient did not perform the activity before the current illness, exacerbation or injury. 10-Not Attempted due to Environmental Limitations-(lack of equipment, weather restraints, etc.). 88-Not Attempted due to Medical Conditions or Safety Concerns. Roll Left to Right (QC): 4 Sit to Lying (QC): 4 Sit to Stand (QC): 3 Chair/Sfv-bj-[place] Xfer(QC): 3 Car Transfer (QC): 3 Gait Training Does the Patient Walk?: Yes Walk 10 feet (QC): 3 Walk 50 ft with 2 Turns(QC): 3 Walk 150 ft (QC): 88 Walking 10ft/uneven surface-QC: 3 Gait Assistive Device: FWW Wheelchair Training Does the Pt Use a Wheelchair?: Yes Distance: 50' Wheel 50 ft with 2 turns (QC): 3 Wheel 150 ft (QC): 88 Type of Wheelchair: Manual Stair Training #of Steps: 1 1 Step (curb) (QC): 3 4 Steps (QC): 88 12 Steps (QC): 88 Balance Picking up an Object (QC): 88 ADL-Treatment Eating (QC): 6 (Based on pt report and clinical judgement, pt independent. Able to use utensils, cut food and bring food/drink to mouth) Oral Hygiene (QC): 4 (CGA standing at sink. Pt able to open toothpaste and brush teeth using RUE) Shower/Bathe Self (QC): 4 (CGA in stand at [facility]) Upper Body Dressing (QC): 3 (Pt able to doff independently, min A donning. Assist pulling shirt over L shoulder) Lower Body Dressing (QC): 4 (CGA, pt able to doff/don pants at [facility]) On/Off Footwear (QC): 3 (Pt able to doff shoes/socks. Pt donned socks with SBA. Based on clinical judgement, pt would require assistance tying shoes.) Toileting Hygiene (QC): 4 (CGA, pt able to complete toilet hygiene and clothing management) Assessment/Plan Assessment and Plan Assess & Plan/Chief Complaint Assessment: CVA with left sided weakness Smoker THC dependent Chronic pain DM insulin dependent HTN HLP PVD Right ankle ulcer Constipation Plan: Home meds Plavix, ASA, statin IRF protocol 03/01/20: Labs reviewed Pain control Aggressive therapy Wound care on ankle ulcer BM aggressive regimen 03/02/20: Hold Jillian Michelle ac/hs SSI Lyrica may be an option (1) CVA (cerebral vascular accident) (2) Smoker (3) Methamphetamine use (4) Tetrahydrocannabinol (THC) dependence (5) Diabetes mellitus, insulin dependent (IDDM), uncontrolled (6) Hypertension (7) Hyperlipidemia (8) Frailty (9) PVD (peripheral vascular disease) (10) Ankle ulcer JESI MCDONALD DO Mar 02, 2020 07:27
[2020-03-02] MEDS: DULoxetine 30 MG (CYMBALTA) CAP PO SCH ×2 (07:53→07:54)
[2020-03-02] MEDS: DOCUSATE SODIUM 100 MG (COLACE) CAP PO SCH ×2 (07:54→19:30)
[2020-03-02] MEDS: GABAPENTIN 600 MG (NEURONTIN) TAB PO SCH ×4 (07:54→21:37)
[2020-03-02] MEDS: LINAGLIPTIN (TRADJENTA) 5 MG TABLET PO SCH (07:54)
[2020-03-02] MEDS: ASPIRIN E.C. 81 MG (ECOTRIN) TAB PO SCH (07:54)
[2020-03-02] MEDS: VITAMIN D3 25 MCG (1,000 UNITS) TABLET PO SCH (07:54)
[2020-03-02] MEDS: metFORMIN 500 MG (GLUCOPHAGE) TAB PO SCH ×2 (07:54→17:23)
[2020-03-02] MEDS: amLODIPine 2.5MG (NORVASC) TAB PO SCH (07:54)
[2020-03-02] MEDS: CLOPIDOGREL 75 MG (PLAVIX) TABLET PO SCH (07:54)
[2020-03-02] MEDS: LACTULOSE SYRUP 10GM/15ML (ENULOSE) 30ML UDC PO SCH ×2 (07:55→19:31)
[2020-03-02] MEDS: SENNA W/DOCUSATE (SENOKOT S) TABLET PO SCH ×2 (07:55→19:31)
[2020-03-02] MEDS: polyethylene glycoL POWDER 17 GM (MIRALAX) PACK PO SCH ×2 (07:55→19:31)
--- NOTE | 2020-03-02 09:00 | Physical Therapy Daily Note ---
PT Daily Note-Current Subjective Patient in bed pre tx, agrees to PT, has no complaints of pain. Will be co- treating with OT due to poor patient mobility, strength, endurance, left hemiparesis, safety and decrease risk of falls, coordinate UE and LE during activity. Appearance Patient in bed post tx with nurse call, phone, tray, all needs met. Mental Status Patient Orientation: Person, Place, Situation Transfers SCALE: Activities may be completed with or without assistive devices. 8-Qjcxwgqpaw-gptavwi completes the activity by him/herself with no assistance from a helper. 5-Set-up or Clean-up Assistance-helper sets up or cleans up; patient completes activity. [place] assists only prior to or following the activity. 4-Supervision or Touching Assistance-helper provides verbal cues and/or touching/steadying and/or contact guard assistance as patient completes activity. Assistance may be provided throughout the activity or intermittently. 3-Partial/Moderate Assistance-helper does LESS THAN HALF the effort. [place] lifts, holds or supports trunk or limbs, but provides less than half the effort. 2-Substantial/Maximal Assistance-helper does MORE THAN HALF the effort. [place] lifts or holds trunk or limbs and provides more than half the effort. 0-Jfwgkacal-eubgbj does ALL the effort. Patient does none of the effort to complete the activity. Or, the assistance of 2 or more helpers is required for the patient to complete the activity. If activity was not attempted, code reason: 7-Patient Refused. 9-Not Applicable-not attempted and the patient did not perform the activity before the current illness, exacerbation or injury. 10-Not Attempted due to Environmental Limitations-(lack of equipment, weather restraints, etc.). 88-Not Attempted due to Medical Conditions or Safety Concerns. Roll Left & Right (QC): 3 Sit to Lying (QC): 3 Lying to Sitting/Side of Bed(Q: 3 Sit to Stand (QC): 4 Chair/Lng-an-Jslyq Xfer(QC): 4 Toilet Transfer (QC): 4 Patient supine to sit, dressing lowers with mod assist. 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 Wheelchair Training Does the Pt Use a Wheelchair?: Yes Wheel 50 ft with 2 turns (QC): 3 Type of Wheelchair: Manual 120' Neuromuscular balance training, standing while performing ring activity Treatments PT performed bed mobility and transfers, ambulate to restroom (needs assist getting pants down and up), ambulation, standing balance during activity, OT performed balance activity, assist with UE during activity Assessment Current Status: Fair Progress improved balance PT Short Term Goals Short Term Goals Time Frame: Mar 07, 2020 Roll Left & Right: 6 Sit to lyin Lying to sitting on side of be: 6 Sit to stand: 4 Chair/ztq-wj-swpim transfer: 4 Walk 10 feet: 4 Walk 50 feet with two turns: 4 Walk 150 feet: 4 PT Mechanic General Operational Test Goals Detention Goals PT Mechanic General Operational Test Goals Time Frame: Mar 21, 2020 Roll Left & Right (QC): 6 Sit to Lying (QC): 6 Lying-Sitting on Side/Bed(QC): 6 Sit to Stand (QC): 4 (SBA) Chair/Gmq-vh-Qbqjc Xfer(QC): 4 (SBA) Toilet Transfer (QC): 4 (SBA) Car Transfer (QC): 4 (SBA) Does the Patient Walk: Yes Walk 10 feet (QC): 4 (SBA) Walk 50ft with 2 Turns (QC): 4 (SBA) Walk 150 ft (QC): 4 (SBA) Walking 10ft on Uneven Surface: 4 (SBA) 1 Step (curb) (QC): 4 (CGA) 4 Steps (QC): 4 (CGA) 12 Steps (QC): 88 Picking up an Object (QC): 88 Does the Pt use WC or Scooter?: No Wheel 50 feet with 2 turns (QC: 6 Wheel 150 feet: 6 PT Plan Problem List Problem List: Activity Tolerance, Functional Strength, Safety, Balance, Gait, Transfer, Bed Mobility, ROM Treatment/Plan Treatment Plan: Continue Plan of Care Treatment Plan: Bed Mobility, Education, Functional Activity Cici, Functional Strength, Group Therapy, Gait, Safety, Therapeutic Exercise, Transfers Treatment Duration: Mar 21, 2020 Frequency: At least 5 of 7 days/Wk (IRF) Estimated Hrs Per Day: 1.5 hours per day Patient and/or Family Agrees t: Yes Safety Risks/Education Patient Education: Gait Training, Transfer Techniques, Correct Positioning, Safety Issues Teaching Recipient: Patient Teaching Methods: Demonstration, Discussion Response to Teaching: Reinforcement Needed Time/GCodes Time In: 0800 Time Out: 0900 Total Billed Treatment Time: 60 Total Billed Treatment 1 visit GT 15' FA 15' NM 30' co-treated for 60' HENRY QUILES PT Mar 02, 2020 09:00
--- NOTE | 2020-03-02 09:03 | Occupational Ther Daily Note ---
OT Current Status-Daily Note Subjective Pt alert, ambulating with PT. Pt agrees to therapy. No c/o pain. Mental Status/Objective Patient Orientation: Person, Place, Time, Situation ADL-Treatment Therapy Code Descriptions/Definitions Functional [place] Measure: 0=Not Assessed/NA 4=Minimal Assistance 1=Total Assistance 5=Supervision or Setup 2=Maximal Assistance 6=Modified [place] 3=Moderate Assistance 7=Complete IndependenceSCALE: Activities may be completed with or without assistive devices. 4-Daoptppogv-ymwywuo completes the activity by him/herself with no assistance fr om a helper. 5-Set-up or Clean-up Assistance-helper sets up or cleans up; patient completes activity. [place] assists only prior to or following the activity. 4-Supervision or Touching Assistance-helper provides verbal cues and/or touching/steadying and/or contact guard assistance as patient completes activity. Assistance may be provided throughout the activity or intermittently. 3-Partial/Moderate Assistance-helper does LESS THAN HALF the effort. [place] lifts, holds or supports trunk or limbs, but provides less than half the effort. 2-Substantial/Maximal Assistance-helper does MORE THAN HALF the effort. [place] lifts or holds trunk or limbs and provides more than half the effort. 0-Mwftfhjnt-legbwm does ALL the effort. Patient does none of the effort to complete the activity. Or, the assistance of 2 or more helpers is required for the patient to complete the activity. If activity was not attempted, code reason: 7-Patient Refused. 9-Not Applicable-not attempted and the patient did not perform the activity before the current illness, exacerbation or injury. 10-Not Attempted due to Environmental Limitations-(lack of equipment, weather restraints, etc.). 88-Not Attempted due to Medical Conditions or Safety Concerns. Oral Hygiene (QC): 4 (Standing at sink with PT, CGA. Pt able to complete oral and denture care by self.) Toileting Hygiene (QC): 4 (CGA and using grabbars to complete clothing manipulation and hygiene.) Toilet Transfer (QC): 4 (CGA using grabbars to transfer with PT to toilet.) Other Treatment Co-treat with PT ([id number]), 2 clinicians required for skilled instruction and modifications to focus on higher level balance issues, L side placement with f unctional tasks and fall prevention. PT focusing on ambulation, transfers, balance and w/c mobility. OT focusing on L UE placement during transfers, ambulation, and balance tasks then completing ADLs. Pt has limited L hand and shldr ROM though does use functionally for ADLs. Pt completed wt bearing tasks with L hand, balance challenging tasks in standing to increase functional ability for daily functional tasks. After therapy, pt lying in bed with call light/phone in reach. All needs met in room. OT Short Term Goals Short Term Goals Time Frame: Mar 13, 2020 Shower/bathe self: 5 Upper body dressin Lower body dressin Putting on/taking off footwear: 5 OT Detention Goals Detention Goals Time Frame: Mar 22, 2020 Eating (QC): 6 Oral Hygiene (QC): 6 Toileting Hygiene (QC): 6 Shower/Bathe Self (QC): 6 Upper Body Dressing (QC): 6 Lower Body Dressing (QC): 6 On/Off Footwear (QC): 6 Additional Goals: 1-Demonstrate ADL Tasks, 2-Verbalize Understanding, 3- ImproveStrength/Cici 1=Demonstrate adherence to instructed precautions during ADL tasks. 2=Patient will verbalize/demonstrate understanding of assistive devices/modifications for ADL. 3=Patient will improve strength/tolerance for activity to enable patient to perform ADL's. OT Education/Plan Problem List/Assessment Assessment: Decreased Activ Tolerance, Decreased UE Strength, Impaired Coordination, Impaired Funct Balance, Impaired Self-Care Skills, Restricted Funct UE ROM Discharge Recommendations Plan/Recommendations: Continue POC Treatment Plan/Plan of Care Patient would benefit from OT for education, treatment and training to promote independence in ADL's, mobility, safety and/or upper extremity function for ADL's. Plan of Care: ADL Retraining, Functional Mobility, Group Exercise/Act as Ind, UE Funct Exercise/Act, UE Neuromus Re-Ed/Coord Treatment Duration: Mar 22, 2020 Frequency: 5 times per week Estimated Hrs Per Day: 1.5 hours per day Agreement: Yes Rehab Potential: Fair Time/GCodes Start Time: 08:00 Stop Time: 09:00 Total Time Billed (hr/min): 60 Billed Treatment Time 1 visit-ADL 1 (10 min) FA 3 (50 min) co-treat with PT [id number] ANICETO BURGER Mar 02, 2020 09:03
--- NOTE | 2020-03-02 09:35 | NUR ---
Dr Mackey notified of blood sugar 42, 56 and 132 after intervention. Scheduled 40 units levemir this am to be held per Dr order at this time.
[2020-03-02] MEDS: ADVAIR HFA 45/21 MCG INHALER 8 GM IH SCH ×2 (10:28→20:40)
--- NOTE | 2020-03-02 12:27 | Therapy Group Daily Note ---
Therapy Daily Group Note Patient Education Topic Energy Cons Session Ratio (pt:therapist): 4:1 Goal of Session: Energy Conservation Tech. Goal Met for this Session: Yes Pt Benefit of Group: Contributions to Others, F/U Use of Strategies @Home, Recognition of Peers, Socialization Other/Notes Pt ambulated towards [facility], HH assistance, pt had LOB. Pt sat in w/c and assisted the rest of the way to [facility]. Pt stated orientation (name, where pt is from, and favorite holiday memory). Pt participated in socialization, and education on the 4 P's of energy conservation (plan, prioritize, position, and pace). Pt acknowledged education topics, recalling 2/4 "P's" as a group. Pt verbalized one technique they are going to use for energy conservation. Pt taken back to room. Post tx, pt laying in bed, call light in reach and all needs met. Start Time: 11:00 Stop Time: 12:00 Total Billed Treatment Time: 60 Total Billed Treatment 1, GRP CHAGO HULL OT Mar 02, 2020 12:27
[2020-03-02] MEDS: ENOXAPARIN 30 MG/0.3 ML (LOVENOX) SYR SC SCH (14:44)
[2020-03-02 17:58] VITALS: BP 117/65
[2020-03-02] MEDS: CALCIUM CARBONATE 500 MG (TUMS) TAB.CHEW PO PRN (19:42)
[2020-03-02] MEDS ORDERED: SUCRALFATE 1 GM (CARAFATE) TAB ONE (21:03)
[2020-03-02] MEDS: MONTELUKAST 10 MG (SINGULAIR) TAB PO SCH (21:37)
[2020-03-02] MEDS: traZODone 50 MG (DESYREL) TAB PO SCH (21:37)
[2020-03-02] MEDS: SUCRALFATE 1 GM (CARAFATE) TAB PO PRN (21:40)
[2020-03-03] MEDS: ACETAMINOPHEN 325 MG TABLET PO PRN ×3 (03:40→23:10)
[2020-03-03 05:37] VITALS: BP 147/69
[2020-03-03] MEDS: inSUlin ASPART (NovoLOG) 1 UNIT/0.01 ML (CHARGE PER UNIT) SC SCH ×4 (05:38→21:00)
--- NOTE | 2020-03-03 06:40 | PM&R Progress Note ---
Subjective HPI/CC On Admission Date Seen by Provider: Mar 03, 2020 Time Seen by Provider: 14:00 Subjective/Events-last exam 03/03/20: No issues Sugars improved no hypoglycemia noted after adjusting insulin down Gabapentin will be changed to QID PRN the way she takes it at home and will start Lyrica tonight 50mg at night Ankle almost healed ulceration 03/02/20: Sugar too low this am Holding Levemir for now SSI A for now BM x 3 after constipation since 02/17 Lyrica may be initiated in place on Gabapentin as she has requested 03/01/20: Settling in well No pain reported Labs checked and all stable No BM since 02/17 so will initiate more aggressive regimen Left sided weakness is a challenge for the patient 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 with boiler control room operator of Systems General: Fatigue, Malaise Neurological: Weakness, Incoordination Objective Exam Vital Signs Vital Signs Date Time Temp Pulse Resp B/P (MAP) Pulse Ox O2 Delivery O2 Flow Rate FiO2 03/03/20 17:17 36.8 95 20 108/55 (72) 97 Room Air Capillary Refill : Less Than 3 Seconds General Appearance: No Apparent Distress, WD/WN, Chronically ill, Thin HEENT: PERRL/EOMI, Normal ENT Inspection, Pharynx Normal Neck: Full Range of Motion, Normal Inspection, Non Tender, Supple, Carotid Bruit Respiratory: Chest Non Tender, Lungs Clear, Normal Breath Sounds, No Accessory Muscle Use, No Respiratory Distress Cardiovascular: Regular Rate, Rhythm, No Edema, No Gallop, No JVD, No Murmur, Normal Peripheral Pulses Gastrointestinal: Normal Bowel Sounds, No Organomegaly, No Pulsatile Mass, Non Tender, Soft Back: Normal Inspection, No CVA Tenderness, No Vertebral Tenderness Extremity: Normal Capillary Refill, Normal Inspection, Normal Range of Motion, Non Tender, No Calf Tenderness, No Pedal Edema Neurologic/Psychiatric: Alert, Oriented x3, Normal Mood/Affect, workers compensation legal secretary II-XII Norm as Tested, Abnormal Gait, Motor Weakness (left sided weakness 2/5 upper and lower) Skin: Normal Color, Warm/Dry, Cyanosis (chronic type of feet to mid-tibia) Lymphatic: No Adenopathy Results/Procedures Lab Patient resulted labs reviewed. FIM Transfers Therapy Code Descriptions/Definitions Functional [place] Measure: 0=Not Assessed/NA 4=Minimal Assistance 1=Total Assistance 5=Supervision or Setup 2=Maximal Assistance 6=Modified [place] 3=Moderate Assistance 7=Complete IndependenceSCALE: Activities may be completed with or without assistive devices. 5-Hsnivxjkzr-vubqfsj completes the activity by him/herself with no assistance from a helper. 5-Set-up or Clean-up Assistance-helper sets up or cleans up; patient completes activity. [place] assists only prior to or following the activity. 4-Supervision or Touching Assistance-helper provides verbal cues and/or touching/steadying and/or contact guard assistance as patient completes activity. Assistance may be provided throughout the activity or intermittently. 3-Partial/Moderate Assistance-helper does LESS THAN HALF the effort. [place] lifts, holds or supports trunk or limbs, but provides less than half the effort. 2-Substantial/Maximal Assistance-helper does MORE THAN HALF the effort. [place] lifts or holds trunk or limbs and provides more than half the effort. 7-Megqhmzsj-ycqqeb does ALL the effort. Patient does none of the effort to complete the activity. Or, the assistance of 2 or more helpers is required for the patient to complete the activity. If activity was not attempted, code reason: 7-Patient Refused. 9-Not Applicable-not attempted and the patient did not perform the activity before the current illness, exacerbation or injury. 10-Not Attempted due to Environmental Limitations-(lack of equipment, weather restraints, etc.). 88-Not Attempted due to Medical Conditions or Safety Concerns. Roll Left to Right (QC): 3 Sit to Lying (QC): 3 Sit to Stand (QC): 4 Chair/Bih-bc-Iljkn Xfer(QC): 4 Car Transfer (QC): 3 Gait Training Does the Patient Walk?: Yes Distance: 120' Walk 10 feet (QC): 3 Walk 50 ft with 2 Turns(QC): 3 Walk 150 ft (QC): 88 Walking 10ft/uneven surface-QC: 3 Gait Persons Needed: 1 Gait Assistive Device: Handheld Assist Wheelchair Training Does the Pt Use a Wheelchair?: Yes Distance: 50' Wheel 50 ft with 2 turns (QC): 3 Wheel 150 ft (QC): 88 Type of Wheelchair: Manual Stair Training #of Steps: 1 1 Step (curb) (QC): 3 4 Steps (QC): 88 12 Steps (QC): 88 Balance Picking up an Object (QC): 88 ADL-Treatment Eating (QC): 6 (Based on pt report and clinical judgement, pt independent. Able to use utensils, cut food and bring food/drink to mouth) Oral Hygiene (QC): 4 (Standing at sink with PT, CGA. Pt able to complete oral and denture care by self.) Shower/Bathe Self (QC): 4 (CGA in stand at [facility]) Upper Body Dressing (QC): 3 (Pt able to doff independently, min A donning. Assist pulling shirt over L shoulder) Lower Body Dressing (QC): 4 (CGA, pt able to doff/don pants at [facility]) On/Off Footwear (QC): 3 (Pt able to doff shoes/socks. Pt donned socks with SBA. Based on clinical judgement, pt would require assistance tying shoes.) Toileting Hygiene (QC): 4 (CGA and using grabbars to complete clothing manipulation and hygiene.) Toilet Transfer (QC): 4 (CGA using grabbars to transfer with PT to toilet.) Assessment/Plan Assessment and Plan Assess & Plan/Chief Complaint Assessment: CVA with left sided weakness Smoker THC dependent Chronic pain DM insulin dependent HTN HLP PVD Right ankle ulcer Constipation Plan: Home meds Plavix, ASA, statin IRF protocol 03/01/20: Labs reviewed Pain control Aggressive therapy Wound care on ankle ulcer BM aggressive regimen 03/02/20: Hold Levemir Accucheck ac/hs SSI Lyrica may be an option 03/03/20: Change Gabapentin to QID prn and start Lyrica at night 50mg at her request Insulin adjusted down Doing well (1) CVA (cerebral vascular accident) (2) Smoker (3) Methamphetamine use (4) Tetrahydrocannabinol (THC) dependence (5) Diabetes mellitus, insulin dependent (IDDM), uncontrolled (6) Hypertension (7) Hyperlipidemia (8) Frailty (9) PVD (peripheral vascular disease) (10) Ankle ulcer JESI MCDONALD DO Mar 03, 2020 06:40
[2020-03-03] MEDS: ADVAIR HFA 45/21 MCG INHALER 8 GM IH SCH ×2 (07:48→22:42)
[2020-03-03] MEDS: DULoxetine 30 MG (CYMBALTA) CAP PO SCH ×2 (09:04)
[2020-03-03] MEDS: CLOPIDOGREL 75 MG (PLAVIX) TABLET PO SCH (09:05)
[2020-03-03] MEDS: VITAMIN D3 25 MCG (1,000 UNITS) TABLET PO SCH (09:05)
[2020-03-03] MEDS: ASPIRIN E.C. 81 MG (ECOTRIN) TAB PO SCH (09:05)
[2020-03-03] MEDS: amLODIPine 2.5MG (NORVASC) TAB PO SCH (09:05)
[2020-03-03] MEDS: GABAPENTIN 600 MG (NEURONTIN) TAB PO SCH (09:05)
[2020-03-03] MEDS: metFORMIN 500 MG (GLUCOPHAGE) TAB PO SCH ×2 (09:06→17:25)
[2020-03-03] MEDS: LINAGLIPTIN (TRADJENTA) 5 MG TABLET PO SCH (09:21)
[2020-03-03] MEDS: polyethylene glycoL POWDER 17 GM (MIRALAX) PACK PO SCH ×2 (09:23→21:51)
[2020-03-03] MEDS: SENNA W/DOCUSATE (SENOKOT S) TABLET PO SCH ×2 (09:23→21:51)
[2020-03-03] MEDS: DOCUSATE SODIUM 100 MG (COLACE) CAP PO SCH ×2 (09:24→21:51)
[2020-03-03] MEDS: LACTULOSE SYRUP 10GM/15ML (ENULOSE) 30ML UDC PO SCH ×2 (09:24→21:51)
[2020-03-03] MEDS: ENOXAPARIN 30 MG/0.3 ML (LOVENOX) SYR SC SCH (15:41)
[2020-03-03 17:17] VITALS: BP 108/55
--- NOTE | 2020-03-03 19:18 | NUR ---
Bedside report received from ERNESTINE HERNANDEZ, assume care of pt
[2020-03-03] MEDS: CALCIUM CARBONATE 500 MG (TUMS) TAB.CHEW PO PRN (19:33)
[2020-03-03] MEDS: MONTELUKAST 10 MG (SINGULAIR) TAB PO SCH (21:46)
[2020-03-03] MEDS: PREGABALIN 50 MG (LYRICA) CAP PO SCH (21:46)
[2020-03-03] MEDS: SUCRALFATE 1 GM (CARAFATE) TAB PO PRN (21:46)
[2020-03-03] MEDS: traZODone 50 MG (DESYREL) TAB PO SCH (21:46)
--- NOTE | 2020-03-03 21:52 | NUR ---
PT refused Colace, Enulose, Senokot & Miralax, c/o heartburn, Carafate 1 tab given
--- NOTE | 2020-03-03 22:31 | NUR ---
C/O headache Tylenol 650mg give, pain level 7/10 on numeric scale
[2020-03-03] MEDS: ALPRAZolam 0.25 MG (XANAX) TAB PO PRN (23:13)
--- NOTE | 2020-03-03 23:13 | NUR ---
found pt crying, states it is all too much, Xanax 0.25mg given, rates pain at 7/10 on numeric scale
[2020-03-04 05:45] VITALS: BP 140/60
[2020-03-04] MEDS: inSUlin ASPART (NovoLOG) 1 UNIT/0.01 ML (CHARGE PER UNIT) SC SCH ×4 (06:00→20:39)
[2020-03-04 06:12] LABS: BASOPHILS # (AUTO) 0.1 10^3/uL (0.0-0.1); BASOPHILS % (AUTO) 1 % (0-10); EOSINOPHILS # (AUTO) 0.3 10^3/uL (0.0-0.3); EOSINOPHILS % (AUTO) 3 % (0-10); HEMATOCRIT 39 % (35-52); HEMOGLOBIN 13.1 g/dL (11.5-16.0); LYMPHOCYTES # (AUTO) 2.9 10^3/uL (1.0-4.0); LYMPHOCYTES % (AUTO) 27 % (12-44); MEAN CORPUSCULAR HEMOGLOBIN 30 pg (25-34); MEAN CORPUSCULAR HGB CONC 33 g/dL (32-36); MEAN CORPUSCULAR VOLUME 89 fL (80-99); MEAN PLATELET VOLUME 11.2 fL (9.0-12.2); MONOCYTES # (AUTO) 0.7 10^3/uL (0.0-1.0); MONOCYTES % (AUTO) 6 % (0-12); NEUTROPHILS # (AUTO) 6.6 10^3/uL (1.8-7.8); NEUTROPHILS % (AUTO) 62 % (42-75); PLATELET COUNT 225 10^3/uL (130-400); WHITE BLOOD COUNT 10.5 10^3/uL (4.3-11.0)
--- NOTE | 2020-03-04 06:20 | PM&R Progress Note ---
Subjective HPI/CC On Admission Date Seen by Provider: Mar 04, 2020 Time Seen by Provider: 09:00 Subjective/Events-last exam 03/04/20: Proton pump inhibitor ordered for GERD issues Didnt sleep well last night, I think that this is a chronic issue Lyrica 50 Mg given at night and Gabapentin switched to prn QID will help 03/03/20: No issues Sugars improved no hypoglycemia noted after adjusting insulin down Gabapentin will be changed to QID PRN the way she takes it at home and will start Lyrica tonight 50mg at night Ankle almost healed ulceration 03/02/20: Sugar too low this am Holding Levemir for now SSI A for now BM x 3 after constipation since 02/17 Lyrica may be initiated in place on Gabapentin as she has requested 03/01/20: Settling in well No pain reported Labs checked and all stable No BM since 02/17 so will initiate more aggressive regimen Left sided weakness is a challenge for the patient 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 of Systems General: Fatigue, Malaise Neurological: Weakness, Incoordination Objective Exam Vital Signs Vital Signs Date Time Temp Pulse Resp B/P (MAP) Pulse Ox O2 Delivery O2 Flow Rate FiO2 03/04/20 20:38 Room Air 03/04/20 18:44 37.0 96 16 143/67 (92) 97 Capillary Refill : Less Than 3 Seconds General Appearance: No Apparent Distress, WD/WN, Chronically ill, Thin HEENT: PERRL/EOMI, Normal ENT Inspection, Pharynx Normal Neck: Full Range of Motion, Normal Inspection, Non Tender, Supple, Carotid Bruit Respiratory: Chest Non Tender, Lungs Clear, Normal Breath Sounds, No Accessory Muscle Use, No Respiratory Distress Cardiovascular: Regular Rate, Rhythm, No Edema, No Gallop, No JVD, No Murmur, Normal Peripheral Pulses Gastrointestinal: Normal Bowel Sounds, No Organomegaly, No Pulsatile Mass, Non Tender, Soft Back: Normal Inspection, No CVA Tenderness, No Vertebral Tenderness Extremity: Normal Capillary Refill, Normal Inspection, Normal Range of Motion, Non Tender, No Calf Tenderness, No Pedal Edema Neurologic/Psychiatric: Alert, Oriented x3, Normal Mood/Affect, 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 FIM Transfers Therapy Code Descriptions/Definitions Functional [place] Measure: 0=Not Assessed/NA 4=Minimal Assistance 1=Total Assistance 5=Supervision or Setup 2=Maximal Assistance 6=Modified [place] 3=Moderate Assistance 7=Complete IndependenceSCALE: Activities may be completed with or without assistive devices. 3-Wuvfthikjh-uwhbmaf completes the activity by him/herself with no assistance from a helper. 5-Set-up or Clean-up Assistance-helper sets up or cleans up; patient completes activity. [place] assists only prior to or following the activity. 4-Supervision or Touching Assistance-helper provides verbal cues and/or touching/steadying and/or contact guard assistance as patient completes activity. Assistance may be provided throughout the activity or intermittently. 3-Partial/Moderate Assistance-helper does LESS THAN HALF the effort. [place] l ifts, holds or supports trunk or limbs, but provides less than half the effort. 2-Substantial/Maximal Assistance-helper does MORE THAN HALF the effort. [place] lifts or holds trunk or limbs and provides more than half the effort. 1-Yfjfpysxo-axcsgj does ALL the effort. Patient does none of the effort to complete the activity. Or, the assistance of 2 or more helpers is required for the patient to complete the activity. If activity was not attempted, code reason: 7-Patient Refused. 9-Not Applicable-not attempted and the patient did not perform the activity before the current illness, exacerbation or injury. 10-Not Attempted due to Environmental Limitations-(lack of equipment, weather restraints, etc.). 88-Not Attempted due to Medical Conditions or Safety Concerns. Roll Left to Right (QC): 3 Sit to Lying (QC): 3 Sit to Stand (QC): 4 Chair/Nby-ow-Ijssq Xfer(QC): 4 Car Transfer (QC): 3 Gait Training Does the Patient Walk?: Yes Distance: 120' Walk 10 feet (QC): 3 Walk 50 ft with 2 Turns(QC): 3 Walk 150 ft (QC): 88 Walking 10ft/uneven surface-QC: 3 Gait Persons Needed: 1 Gait Assistive Device: Handheld Assist Wheelchair Training Does the Pt Use a Wheelchair?: Yes Distance: 50' Wheel 50 ft with 2 turns (QC): 3 Wheel 150 ft (QC): 88 Type of Wheelchair: Manual Stair Training #of Steps: 1 1 Step (curb) (QC): 3 4 Steps (QC): 88 12 Steps (QC): 88 Balance Picking up an Object (QC): 88 ADL-Treatment Eating (QC): 6 (Based on pt report and clinical judgement, pt independent. Able to use utensils, cut food and bring food/drink to mouth) Oral Hygiene (QC): 4 (Standing at sink with PT, CGA. Pt able to complete oral and denture care by self.) Shower/Bathe Self (QC): 4 (CGA in stand at [facility]) Upper Body Dressing (QC): 3 (Pt able to doff independently, min A donning. Assist pulling shirt over L shoulder) Lower Body Dressing (QC): 4 (CGA, pt able to doff/don pants at [facility]) On/Off Footwear (QC): 3 (Pt able to doff shoes/socks. Pt donned socks with SBA. Based on clinical judgement, pt would require assistance tying shoes.) Toileting Hygiene (QC): 4 (CGA and using grabbars to complete clothing manipulation and hygiene.) Toilet Transfer (QC): 4 (CGA using grabbars to transfer with PT to toilet.) Assessment/Plan Assessment and Plan Assess & Plan/Chief Complaint Assessment: CVA with left sided weakness Smoker THC dependent Chronic pain DM insulin dependent HTN HLP PVD Right ankle ulcer Constipation Plan: Home meds Plavix, ASA, statin IRF protocol 03/01/20: Labs reviewed Pain control Aggressive therapy Wound care on ankle ulcer BM aggressive regimen 03/02/20: Hold Levemir Accucheck ac/hs SSI Lyrica may be an option 03/03/20: Change Gabapentin to QID prn and start Lyrica at night 50mg at her request Insulin adjusted down Doing well 03/04/20: PPI Monitor pain IRF protocol (1) CVA (cerebral vascular accident) (2) Smoker (3) Methamphetamine use (4) Tetrahydrocannabinol (THC) dependence (5) Diabetes mellitus, insulin dependent (IDDM), uncontrolled (6) Hypertension (7) Hyperlipidemia (8) Frailty (9) PVD (peripheral vascular disease) (10) Ankle ulcer MCDONALD,JESI DO Mar 04, 2020 06:20
[2020-03-04 06:41] LABS: ALANINE AMINOTRANSFERASE 14 U/L (0-55); ALBUMIN 3.4 GM/DL (3.2-4.5); ALKALINE PHOSPHATASE 82 U/L (40-136); BILIRUBIN,TOTAL 0.3 MG/DL (0.1-1.0); BUN/CREATININE RATIO 37; CALCIUM 8.6 MG/DL (8.5-10.1); CARBON DIOXIDE 28 MMOL/L (21-32); CHLORIDE 103 MMOL/L (98-107); CREATININE SERUM 0.54 MG/DL (0.60-1.30); GFR ESTIMATED > 60; GLUCOSE 166 MG/DL (70-105); POTASSIUM 3.6 MMOL/L (3.6-5.0); SODIUM 140 MMOL/L (135-145); TOTAL PROTEIN 6.2 GM/DL (6.4-8.2)
[2020-03-04 09:00] VITALS: BP 116/65
[2020-03-04] MEDS: DOCUSATE SODIUM 100 MG (COLACE) CAP PO SCH ×2 (09:00→20:38)
[2020-03-04] MEDS: SENNA W/DOCUSATE (SENOKOT S) TABLET PO SCH ×2 (09:00→20:39)
[2020-03-04] MEDS: polyethylene glycoL POWDER 17 GM (MIRALAX) PACK PO SCH ×2 (09:00→20:39)
[2020-03-04] MEDS: metFORMIN 500 MG (GLUCOPHAGE) TAB PO SCH ×2 (09:37→18:46)
[2020-03-04] MEDS: LINAGLIPTIN (TRADJENTA) 5 MG TABLET PO SCH (09:38)
[2020-03-04] MEDS: DULoxetine 30 MG (CYMBALTA) CAP PO SCH ×2 (09:43)
[2020-03-04] MEDS: amLODIPine 2.5MG (NORVASC) TAB PO SCH (09:44)
[2020-03-04] MEDS: VITAMIN D3 25 MCG (1,000 UNITS) TABLET PO SCH (09:44)
[2020-03-04] MEDS: CLOPIDOGREL 75 MG (PLAVIX) TABLET PO SCH (09:44)
[2020-03-04] MEDS: ASPIRIN E.C. 81 MG (ECOTRIN) TAB PO SCH (09:44)
[2020-03-04] MEDS: LACTULOSE SYRUP 10GM/15ML (ENULOSE) 30ML UDC PO SCH ×2 (10:08→20:38)
[2020-03-04] MEDS: ADVAIR HFA 45/21 MCG INHALER 8 GM IH SCH ×2 (10:10→18:42)
--- NOTE | 2020-03-04 11:17 | Occupational Ther Daily Note ---
OT Current Status-Daily Note Subjective Pt alert, sitting in recliner. Pt agrees to therapy. No c/o pain. Pt stated that her legs were hurting overnight and she did not sleep well. Nrsg aware Mental Status/Objective Patient Orientation: Person, Place, Time, Situation Attachments: Other-See Comments (AFO L foot) ADL-Treatment Pt agrees to shower. CGA to min A for sit to stand using FWW. Pt ambulated to bathroom and transferred into shower with CGA using FWW, grabbar and shower bench. Pt doffed upper body clothing and socks by self. CGA in standing while pt hiked pants over hips. Pt then completed bathing with SBA for safety, leaning side to side to cleanse buttocks. Pt transferred out of shower with CGA using hand hold assist. Pt donned shirt by self after set up. Pt threaded socks and lower body clothing over feet by self after set up. CGA in standing to hike pants over hips. Pt ambulated to sink to complete grooming in standing with CGA. Pt ambulated back to room and sat in recliner. Assist to don AFO and shoe onto L foot. Pt left in care of PT. All needs met in room. Therapy Code Descriptions/Definitions Functional [place] Measure: 0=Not Assessed/NA 4=Minimal Assistance 1=Total Assistance 5=Supervision or Setup 2=Maximal Assistance 6=Modified [place] 3=Moderate Assistance 7=Complete IndependenceSCALE: Activities may be completed with or without assistive devices. 7-Lhylyjarxi-iyfsdar completes the activity by him/herself with no assistance from a helper. 5-Set-up or Clean-up Assistance-helper sets up or cleans up; patient completes activity. [place] assists only prior to or following the activity. 4-Supervision or Touching Assistance-helper provides verbal cues and/or touching/steadying and/or contact guard assistance as patient completes activity. Assistance may be provided throughout the activity or intermittently. 3-Partial/Moderate Assistance-helper does LESS THAN HALF the effort. [place] lifts, holds or supports trunk or limbs, but provides less than half the effort. 2-Substantial/Maximal Assistance-helper does MORE THAN HALF the effort. [place] lifts or holds trunk or limbs and provides more than half the effort. 5-Dlsiohkke-zwxcsy does ALL the effort. Patient does none of the effort to complete the activity. Or, the assistance of 2 or more helpers is required for the patient to complete the activity. If activity was not attempted, code reason: 7-Patient Refused. 9-Not Applicable-not attempted and the patient did not perform the activity before the current illness, exacerbation or injury. 10-Not Attempted due to Environmental Limitations-(lack of equipment, weather restraints, etc.). 88-Not Attempted due to Medical Conditions or Safety Concerns. Eating (QC): 6 (Pt able to open packages and containers by self and uses regular utensils.) Bathing Location: L Arm, R Arm, L Upper Leg, R Upper Leg, L Lower Leg (including foot), R Lower Leg (including foot), Chest, Abdomen, Buttocks, Perineal Area Shower/Bathe Self (QC): 4 Upper Body Dressing (QC): 5 Lower Body Dressing (QC): 4 On/Off Footwear: 5 OT Short Term Goals Short Term Goals Time Frame: Mar 13, 2020 Shower/bathe self: 5 Upper body dressin Lower body dressin Putting on/taking off footwear: 5 OT Prison Goals Packaging Manager Goals Time Frame: Mar 22, 2020 Eating (QC): 6 Oral Hygiene (QC): 6 Toileting Hygiene (QC): 6 Shower/Bathe Self (QC): 6 Upper Body Dressing (QC): 6 Lower Body Dressing (QC): 6 On/Off Footwear (QC): 6 Additional Goals: 1-Demonstrate ADL Tasks, 2-Verbalize Understanding, 3- ImproveStrength/Cici 1=Demonstrate adherence to instructed precautions during ADL tasks. 2=Patient will verbalize/demonstrate understanding of assistive devices/modifications for ADL. 3=Patient will improve strength/tolerance for activity to enable patient to perform ADL's. OT Education/Plan Problem List/Assessment Assessment: Decreased Safety Aware, Decreased UE Strength, Impaired Coordination, Impaired Funct Balance, Impaired I ADL's, Impaired Self-Care Skills, Restricted Funct UE ROM Discharge Recommendations Plan/Recommendations: Continue POC Treatment Plan/Plan of Care Patient would benefit from OT for education, treatment and training to promote independence in ADL's, mobility, safety and/or upper extremity function for ADL's. Plan of Care: ADL Retraining, Functional Mobility, Group Exercise/Act as Ind, UE Funct Exercise/Act, UE Neuromus Re-Ed/Coord Treatment Duration: Mar 22, 2020 Frequency: At least 5 of 7 days/Wk (IRF) Estimated Hrs Per Day: 1.5 hours per day (1-1.5 hours per day) Agreement: Yes Rehab Potential: Fair Time/GCodes Start Time: 10:00 Stop Time: 11:00 Total Time Billed (hr/min): 60 Billed Treatment Time 1 visit-ADL 4 (60 min) ANICETO BURGRE Mar 04, 2020 11:17
--- NOTE | 2020-03-04 11:56 | Physical Therapy Daily Note ---
PT Daily Note-Current Subjective Patient in recliner pre tx, agrees to PT, has no complaints of pain. Patient just had OT and they have already put her AFO on, she now has some tennis shoes that it will fit in. Appearance Patient in recliner post tx with nurse call, phone, tray, all needs met. Mental Status Patient Orientation: Person, Place, Situation Transfers SCALE: Activities may be completed with or without assistive devices. 5-Hrwrufouuh-tlnwozk completes the activity by him/herself with no assistance from a helper. 5-Set-up or Clean-up Assistance-helper sets up or cleans up; patient completes activity. [place] assists only prior to or following the activity. 4-Supervision or Touching Assistance-helper provides verbal cues and/or touching/steadying and/or contact guard assistance as patient completes activity. Assistance may be provided throughout the activity or intermittently. 3-Partial/Moderate Assistance-helper does LESS THAN HALF the effort. [place] lifts, holds or supports trunk or limbs, but provides less than half the effort. 2-Substantial/Maximal Assistance-helper does MORE THAN HALF the effort. [place] lifts or holds trunk or limbs and provides more than half the effort. 4-Udfbnkbtg-pythki does ALL the effort. Patient does none of the effort to complete the activity. Or, the assistance of 2 or more helpers is required for the patient to complete the activity. If activity was not attempted, code reason: 7-Patient Refused. 9-Not Applicable-not attempted and the patient did not perform the activity before the current illness, exacerbation or injury. 10-Not Attempted due to Environmental Limitations-(lack of equipment, weather restraints, etc.). 88-Not Attempted due to Medical Conditions or Safety Concerns. Sit to Stand (QC): 3 Chair/Vpp-jl-Tvtgy Xfer(QC): 3 Gait Training Distance: 120'x2 Walk 10 feet (QC): 4 Walk 50 ft with 2 Turns(QC): 4 Gait Persons Needed: 1 Gait Assistive Device: FWW CGA, slow, uncoordinated steps with left leg, left AFO, increased right LE tone Exercises Standing: Floor clock, Marching, Step-ups (x10 each side) Standing Reps: 15 LAQ alternating for 5 min NuStep Minutes: 15 NuStep Workload: 4 Treatments transfers, ambulation, LE strengthening Assessment Current Status: Fair Progress Patient is mostly CGA with sit to stand and transfers but has an occasional LOB and needs min assist. PT Short Term Goals Short Term Goals Time Frame: Mar 07, 2020 Roll Left & Right: 6 Sit to lyin Lying to sitting on side of be: 6 Sit to stand: 4 Chair/sqr-pb-xmjov transfer: 4 Walk 10 feet: 4 Walk 50 feet with two turns: 4 Walk 150 feet: 4 PT Detention Goals Ladle Filler Goals PT Detention Goals Time Frame: Mar 21, 2020 Roll Left & Right (QC): 6 Sit to Lying (QC): 6 Lying-Sitting on Side/Bed(QC): 6 Sit to Stand (QC): 4 (SBA) Chair/Rcj-qd-Rpmba Xfer(QC): 4 (SBA) Toilet Transfer (QC): 4 (SBA) Car Transfer (QC): 4 (SBA) Does the Patient Walk: Yes Walk 10 feet (QC): 4 (SBA) Walk 50ft with 2 Turns (QC): 4 (SBA) Walk 150 ft (QC): 4 (SBA) Walking 10ft on Uneven Surface: 4 (SBA) 1 Step (curb) (QC): 4 (CGA) 4 Steps (QC): 4 (CGA) 12 Steps (QC): 88 Picking up an Object (QC): 88 Does the Pt use WC or Scooter?: No Wheel 50 feet with 2 turns (QC: 6 Wheel 150 feet: 6 PT Plan Problem List Problem List: Activity Tolerance, Functional Strength, Safety, Balance, Gait, Transfer, Bed Mobility, ROM Treatment/Plan Treatment Plan: Continue Plan of Care Treatment Plan: Bed Mobility, Education, Functional Activity Cici, Functional Strength, Group Therapy, Gait, Safety, Therapeutic Exercise, Transfers Treatment Duration: Mar 21, 2020 Frequency: At least 5 of 7 days/Wk (IRF) Estimated Hrs Per Day: 1.5 hours per day Patient and/or Family Agrees t: Yes Safety Risks/Education Patient Education: Gait Training, Transfer Techniques, Correct Positioning, Safety Issues Teaching Recipient: Patient Teaching Methods: Demonstration, Discussion Response to Teaching: Reinforcement Needed Time/GCodes Time In: 1100 Time Out: 1200 Total Billed Treatment Time: 60 Total Billed Treatment 1 visit EX 30' GT 30' HENRY QUILES PT Mar 04, 2020 11:56
--- NOTE | 2020-03-04 13:32 | Occupational Ther Daily Note ---
OT Current Status-Daily Note Subjective Pt alert, sitting in recliner. Pt agrees to therapy. No c/o pain at this time. Mental Status/Objective Patient Orientation: Person, Place, Time, Situation Attachments: Other-See Comments (AFO L foot) ADL-Treatment Therapy Code Descriptions/Definitions Functional [place] Measure: 0=Not Assessed/NA 4=Minimal Assistance 1=Total Assistance 5=Supervision or Setup 2=Maximal Assistance 6=Modified [place] 3=Moderate Assistance 7=Complete IndependenceSCALE: Activities may be completed with or without assistive devices. 5-Kopjnmnebn-ivvmtxc completes the activity by him/herself with no assistance from a helper. 5-Set-up or Clean-up Assistance-helper sets up or cleans up; patient completes activity. [place] assists only prior to or following the activity. 4-Supervision or Touching Assistance-helper provides verbal cues and/or touching/steadying and/or contact guard assistance as patient completes activity. Assistance may be provided throughout the activity or intermittently. 3-Partial/Moderate Assistance-helper does LESS THAN HALF the effort. [place] lifts, holds or supports trunk or limbs, but provides less than half the effort. 2-Substantial/Maximal Assistance-helper does MORE THAN HALF the effort. [place] lifts or holds trunk or limbs and provides more than half the effort. 7-Pvnykqghc-zmczbj does ALL the effort. Patient does none of the effort to complete the activity. Or, the assistance of 2 or more helpers is required for the patient to complete the activity. If activity was not attempted, code reason: 7-Patient Refused. 9-Not Applicable-not attempted and the patient did not perform the activity before the current illness, exacerbation or injury. 10-Not Attempted due to Environmental Limitations-(lack of equipment, weather restraints, etc.). 88-Not Attempted due to Medical Conditions or Safety Concerns. Toileting Hygiene (QC): 4 (SBA for hygiene and clothing manipulation.) Toilet Transfer (QC): 4 (SBA for transfer using FWW and grabbars.) Other Treatment Pt ambulated with close SBA using FWW to therapy gym. Pt completed B UE gross and fine motor tasks to increase strength and activity tolerance for daily functional tasks. Arm bike for 15 min at 15 ponce resistance without breaks. Following model to complete resistive bands tasks. After therapy, pt sitting in recliner with call light/phone in reach. All needs met in room. OT Short Term Goals Short Term Goals Time Frame: Mar 13, 2020 Shower/bathe self: 5 Upper body dressin Lower body dressin Putting on/taking off footwear: 5 OT Residential Goals Internet Security Specialist Goals Time Frame: Mar 22, 2020 Eating (QC): 6 Oral Hygiene (QC): 6 Toileting Hygiene (QC): 6 Shower/Bathe Self (QC): 6 Upper Body Dressing (QC): 6 Lower Body Dressing (QC): 6 On/Off Footwear (QC): 6 Additional Goals: 1-Demonstrate ADL Tasks, 2-Verbalize Understanding, 3- ImproveStrength/Cici 1=Demonstrate adherence to instructed precautions during ADL tasks. 2=Patient will verbalize/demonstrate understanding of assistive devices/modifications for ADL. 3=Patient will improve strength/tolerance for activity to enable patient to perform ADL's. OT Education/Plan Problem List/Assessment Assessment: Decreased Activ Tolerance, Decreased UE Strength, Impaired Funct Balance, Impaired Self-Care Skills, Restricted Funct UE ROM Discharge Recommendations Plan/Recommendations: Continue POC Treatment Plan/Plan of Care Patient would benefit from OT for education, treatment and training to promote independence in ADL's, mobility, safety and/or upper extremity function for ADL's. Plan of Care: ADL Retraining, Functional Mobility, Group Exercise/Act as Ind, UE Funct Exercise/Act, UE Neuromus Re-Ed/Coord Treatment Duration: Mar 22, 2020 Frequency: At least 5 of 7 days/Wk (IRF) Estimated Hrs Per Day: 1.5 hours per day (1-1.5 hours per day) Agreement: Yes Rehab Potential: Fair Time/GCodes Start Time: 12:45 Stop Time: 13:30 Total Time Billed (hr/min): 45 Billed Treatment Time 1 visit-ADL 1 (15 min) EX 2 (30 min) ANICETO BURGER Mar 04, 2020 13:32
--- NOTE | 2020-03-04 14:11 | Physical Therapy Daily Note ---
PT Daily Note-Current Subjective Patient in recliner pre tx, agrees to PT, has no complaints of pain. Appearance Patient in bed post tx, with nurse call, phone, tray, all needs met. Mental Status Patient Orientation: Person, Place, Situation Transfers SCALE: Activities may be completed with or without assistive devices. 1-Gtyeqhooqw-dznxkog completes the activity by him/herself with no assistance from a helper. 5-Set-up or Clean-up Assistance-helper sets up or cleans up; patient completes activity. [place] assists only prior to or following the activity. 4-Supervision or Touching Assistance-helper provides verbal cues and/or touchin g/steadying and/or contact guard assistance as patient completes activity. Assistance may be provided throughout the activity or intermittently. 3-Partial/Moderate Assistance-helper does LESS THAN HALF the effort. [place] lifts, holds or supports trunk or limbs, but provides less than half the effort. 2-Substantial/Maximal Assistance-helper does MORE THAN HALF the effort. [place] lifts or holds trunk or limbs and provides more than half the effort. 4-Xxcjskjil-ighuuc does ALL the effort. Patient does none of the effort to complete the activity. Or, the assistance of 2 or more helpers is required for the patient to complete the activity. If activity was not attempted, code reason: 7-Patient Refused. 9-Not Applicable-not attempted and the patient did not perform the activity before the current illness, exacerbation or injury. 10-Not Attempted due to Environmental Limitations-(lack of equipment, weather restraints, etc.). 88-Not Attempted due to Medical Conditions or Safety Concerns. Sit to Lying (QC): 4 Lying to Sitting/Side of Bed(Q: 3 Sit to Stand (QC): 4 Chair/Fdw-xz-Vxwwl Xfer(QC): 4 Gait Training Distance: 120x2 Walk 10 feet (QC): 4 Walk 50 ft with 2 Turns(QC): 4 Gait Persons Needed: 1 Gait Assistive Device: FWW slow, uncoordinated steps on left side, wears left AFO Exercises Supine Ex: Bridging (x15, 3 sets), Heel Slides, Short Arc Quads, Straight leg raise, Hip abd/add Supine Reps: 20 NuStep Minutes: 15 NuStep Workload: 4 Treatments bed mobility and transfers, LE exercise, ambulation Assessment Current Status: Fair Progress no LOB with ambulation PT Short Term Goals Short Term Goals Time Frame: Mar 07, 2020 Roll Left & Right: 6 Sit to lyin Lying to sitting on side of be: 6 Sit to stand: 4 Chair/hwn-lb-nieum transfer: 4 Walk 10 feet: 4 Walk 50 feet with two turns: 4 Walk 150 feet: 4 PT Truck Trailer Mechanic Goals Fpc Goals PT Fpc Goals Time Frame: Mar 21, 2020 Roll Left & Right (QC): 6 Sit to Lying (QC): 6 Lying-Sitting on Side/Bed(QC): 6 Sit to Stand (QC): 4 (SBA) Chair/Tuc-jk-Cxpbr Xfer(QC): 4 (SBA) Toilet Transfer (QC): 4 (SBA) Car Transfer (QC): 4 (SBA) Does the Patient Walk: Yes Walk 10 feet (QC): 4 (SBA) Walk 50ft with 2 Turns (QC): 4 (SBA) Walk 150 ft (QC): 4 (SBA) Walking 10ft on Uneven Surface: 4 (SBA) 1 Step (curb) (QC): 4 (CGA) 4 Steps (QC): 4 (CGA) 12 Steps (QC): 88 Picking up an Object (QC): 88 Does the Pt use WC or Scooter?: No Wheel 50 feet with 2 turns (QC: 6 Wheel 150 feet: 6 PT Plan Problem List Problem List: Activity Tolerance, Functional Strength, Safety, Balance, Gait, Transfer, Bed Mobility, ROM Treatment/Plan Treatment Plan: Continue Plan of Care Treatment Plan: Bed Mobility, Education, Functional Activity Cici, Functional Strength, Group Therapy, Gait, Safety, Therapeutic Exercise, Transfers Treatment Duration: Mar 21, 2020 Frequency: At least 5 of 7 days/Wk (IRF) Estimated Hrs Per Day: 1.5 hours per day Patient and/or Family Agrees t: Yes Safety Risks/Education Patient Education: Gait Training, Transfer Techniques, Correct Positioning, Safety Issues Teaching Recipient: Patient Teaching Methods: Demonstration, Discussion Response to Teaching: Reinforcement Needed Time/GCodes Time In: 1330 Time Out: 1415 Total Billed Treatment Time: 45 Total Billed Treatment 1 visit EX 30' GT 15' HENRY QUILES PT Mar 04, 2020 14:11
[2020-03-04] MEDS: ENOXAPARIN 30 MG/0.3 ML (LOVENOX) SYR SC SCH (16:13)
--- NOTE | 2020-03-04 17:46 | NUR ---
RD ASSESSMENT PMHx: DM; HTN; CVA PT INTERACTION: Pt was awake and pleasant during nutrition assessment. Pt states current appetite is good. Note avg PO intake 100% x3d, per chart review. Pt states following a low-CHO diet at home, and has no issues with chewing/swallowing food. Pt states some recent issues with constipation. Note last BM was 03/04, and pt currently on bowel regimen of colace BID, senna BID, and miralax BID, per chart review. Pt states recent 50-60# wt loss x6mon. Note unable to determine recent wt hx, per chart review. Pt states current DM management is "okay." Note unable to determine recent HbA1c, per chart review. ABNORMAL NUTRITION-RELATED LAB VALUES LOW: cr 0.54; pro 6.2 HIGH: BUN 20; glu 166 Est. kcal needs: 0676-3175 kcal | 25-30 kcal/kg Est. Pro needs: 49-59 g Pro | 1.0-1.2 g Pro/kg PES STATEMENT: Given current PO intake, no nutrition diagnosis at this time (NO-1.1). INTERVENTION: Continue with current diet order of CHO 60g/m 1snack diet. Will provide diet education on DM management on 03/05. Will continue to follow and reassess as pt needs, intake, and status change. Travis WHITING, MS RD LD [phone] cell
[2020-03-04 18:44] VITALS: BP 143/67
--- NOTE | 2020-03-04 19:18 | NUR ---
Bedside report received from DOMINIC HERNANDEZ, assume care of pt
[2020-03-04] MEDS: MONTELUKAST 10 MG (SINGULAIR) TAB PO SCH (20:32)
[2020-03-04] MEDS: PREGABALIN 50 MG (LYRICA) CAP PO SCH (20:32)
[2020-03-04] MEDS: traZODone 50 MG (DESYREL) TAB PO SCH (20:32)
[2020-03-04] MEDS: CALCIUM CARBONATE 500 MG (TUMS) TAB.CHEW PO PRN (20:33)
[2020-03-04] MEDS: ACETAMINOPHEN 325 MG TABLET PO PRN (20:33)
--- NOTE | 2020-03-04 20:33 | NUR ---
Pt refused Colace, Enulose, Miralax & Senokot, fsbs 170 no ss insulin req, c/o heartburn & Abd pain level 8/10 on numeric scale, Antacid 500mg & Tylenol 650mg given
--- NOTE | 2020-03-04 21:20 | NUR ---
rates pain at 8/10 on numeric scale
[2020-03-05 05:26] VITALS: BP 126/60
--- NOTE | 2020-03-05 05:58 | PM&R Progress Note ---
Subjective HPI/CC On Admission Date Seen by Provider: Mar 05, 2020 Time Seen by Provider: 09:00 Subjective/Events-last exam 03/05/20: Increasing Lyrica to 100mg at night since she is not taking the Gabapentin Still not sleeping well No major issues Bowels are moving Drinks a lot of diet [place] 03/04/20: Proton pump inhibitor ordered for GERD issues Didnt sleep well last night, I think that this is a chronic issue Lyrica 50 Mg given at night and Gabapentin switched to prn QID will help 03/03/20: No issues Sugars improved no hypoglycemia noted after adjusting insulin down Gabapentin will be changed to QID PRN the way she takes it at home and will start Lyrica tonight 50mg at night Ankle almost healed ulceration 03/02/20: Sugar too low this am Holding Levemir for now SSI A for now BM x 3 after constipation since 02/17 Lyrica may be initiated in place on Gabapentin as she has requested 03/01/20: Settling in well No pain reported Labs checked and all stable No BM since 02/17 so will initiate more aggressive regimen Left sided weakness is a challenge for the patient Conferred with social sciences chair of Systems General: Fatigue Neurological: Weakness, Incoordination Objective Exam Vital Signs Vital Signs Date Time Temp Pulse Resp B/P (MAP) Pulse Ox O2 Delivery O2 Flow Rate FiO2 03/06/20 05:05 36.5 97 18 138/61 (86) 96 Room Air Capillary Refill : Less Than 3 Seconds General Appearance: No Apparent Distress, WD/WN, Chronically ill, Thin HEENT: PERRL/EOMI, Normal ENT Inspection, Pharynx Normal Neck: Full Range of Motion, Normal Inspection, Non Tender, Supple, Carotid Bruit Respiratory: Chest Non Tender, Lungs Clear, Normal Breath Sounds, No Accessory Muscle Use, No Respiratory Distress Cardiovascular: Regular Rate, Rhythm, No Edema, No Gallop, No JVD, No Murmur, Normal Peripheral Pulses Gastrointestinal: Normal Bowel Sounds, No Organomegaly, No Pulsatile Mass, Non Tender, Soft Back: Normal Inspection, No CVA Tenderness, No Vertebral Tenderness Extremity: Normal Capillary Refill, Normal Inspection, Normal Range of Motion, Non Tender, No Calf Tenderness, No Pedal Edema Neurologic/Psychiatric: Alert, Oriented x3, Normal Mood/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 FIM Transfers Therapy Code Descriptions/Definitions Functional [place] Measure: 0=Not Assessed/NA 4=Minimal Assistance 1=Total Assistance 5=Supervision or Setup 2=Maximal Assistance 6=Modified [place] 3=Moderate Assistance 7=Complete IndependenceSCALE: Activities may be completed with or without assistive devices. 8-Dvjunvmogj-kihgudc completes the activity by him/herself with no assistance from a helper. 5-Set-up or Clean-up Assistance-helper sets up or cleans up; patient completes activity. [place] assists only prior to or following the activity. 4-Supervision or Touching Assistance-helper provides verbal cues and/or touching/steadying and/or contact guard assistance as patient completes activity. Assistance may be provided throughout the activity or intermittently. 3-Partial/Moderate Assistance-helper does LESS THAN HALF the effort. [place] lifts, holds or supports trunk or limbs, but provides less than half the effort. 2-Substantial/Maximal Assistance-helper does MORE THAN HALF the effort. [place] lifts or holds trunk or limbs and provides more than half the effort. 2-Ifgnmehis-wyldgu does ALL the effort. Patient does none of the effort to complete the activity. Or, the assistance of 2 or more helpers is required for the patient to complete the activity. If activity was not attempted, code reason: 7-Patient Refused. 9-Not Applicable-not attempted and the patient did not perform the activity before the current illness, exacerbation or injury. 10-Not Attempted due to Environmental Limitations-(lack of equipment, weather restraints, etc.). 88-Not Attempted due to Medical Conditions or Safety Concerns. Roll Left to Right (QC): 3 Sit to Lying (QC): 4 Sit to Stand (QC): 4 Chair/Ttq-wr-Oxikm Xfer(QC): 4 Car Transfer (QC): 3 Gait Training Does the Patient Walk?: Yes Distance: 120x2 Walk 10 feet (QC): 4 Walk 50 ft with 2 Turns(QC): 4 Walk 150 ft (QC): 88 Walking 10ft/uneven surface-QC: 3 Gait Persons Needed: 1 Gait Assistive Device: FWW Wheelchair Training Does the Pt Use a Wheelchair?: Yes Distance: 50' Wheel 50 ft with 2 turns (QC): 3 Wheel 150 ft (QC): 88 Type of Wheelchair: Manual Stair Training #of Steps: 1 1 Step (curb) (QC): 3 4 Steps (QC): 88 12 Steps (QC): 88 Balance Picking up an Object (QC): 88 ADL-Treatment Eating (QC): 6 (Pt able to open packages and containers by self and uses regular utensils.) Oral Hygiene (QC): 4 (Standing at sink with PT, CGA. Pt able to complete oral and denture care by self.) Bathing Location: L Arm, R Arm, L Upper Leg, R Upper Leg, L Lower Leg (including foot), R Lower Leg (including foot), Chest, Abdomen, Buttocks, Perineal Area Shower/Bathe Self (QC): 4 Upper Body Dressing (QC): 5 Lower Body Dressing (QC): 4 On/Off Footwear (QC): 5 Toileting Hygiene (QC): 4 (SBA for hygiene and clothing manipulation.) Toilet Transfer (QC): 4 (SBA for transfer using FWW and grabbars.) Assessment/Plan Assessment and Plan Assess & Plan/Chief Complaint Assessment: CVA with left sided weakness Smoker THC dependent Chronic pain DM insulin dependent HTN HLP PVD Right ankle ulcer Constipation Plan: Home meds Plavix, ASA, statin IRF protocol 03/01/20: Labs reviewed Pain control Aggressive therapy Wound care on ankle ulcer BM aggressive regimen 03/02/20: Hold Levemir Accucheck ac/hs SSI Lyrica may be an option 03/03/20: Change Gabapentin to QID prn and start Lyrica at night 50mg at her request Insulin adjusted down Doing well 03/04/20: PPI Monitor pain IRF protocol 03/05/20: Continue aggressive PT OT Increase Lyrica (1) CVA (cerebral vascular accident) (2) Smoker (3) Methamphetamine use (4) Tetrahydrocannabinol (THC) dependence (5) Diabetes mellitus, insulin dependent (IDDM), uncontrolled (6) Hypertension (7) Hyperlipidemia (8) Frailty (9) PVD (peripheral vascular disease) (10) Ankle ulcer JESI MCDONALD DO Mar 05, 2020 05:57
[2020-03-05] MEDS: inSUlin ASPART (NovoLOG) 1 UNIT/0.01 ML (CHARGE PER UNIT) SC SCH ×4 (06:20→20:27)
[2020-03-05] MEDS: ADVAIR HFA 45/21 MCG INHALER 8 GM IH SCH ×2 (06:32→21:06)
[2020-03-05 08:00] VITALS: BP 114/58
[2020-03-05] MEDS: VITAMIN D3 25 MCG (1,000 UNITS) TABLET PO SCH (08:16)
[2020-03-05] MEDS: metFORMIN 500 MG (GLUCOPHAGE) TAB PO SCH ×2 (08:16→18:43)
[2020-03-05] MEDS: CLOPIDOGREL 75 MG (PLAVIX) TABLET PO SCH (08:17)
[2020-03-05] MEDS: amLODIPine 2.5MG (NORVASC) TAB PO SCH (08:17)
[2020-03-05] MEDS: ASPIRIN E.C. 81 MG (ECOTRIN) TAB PO SCH (08:17)
[2020-03-05] MEDS: DULoxetine 30 MG (CYMBALTA) CAP PO SCH ×2 (08:17)
[2020-03-05] MEDS: LINAGLIPTIN (TRADJENTA) 5 MG TABLET PO SCH (08:18)
[2020-03-05] MEDS: SENNA W/DOCUSATE (SENOKOT S) TABLET PO SCH ×2 (08:18→19:23)
[2020-03-05] MEDS: DOCUSATE SODIUM 100 MG (COLACE) CAP PO SCH ×2 (08:18→19:22)
[2020-03-05] MEDS: LACTULOSE SYRUP 10GM/15ML (ENULOSE) 30ML UDC PO SCH ×2 (08:18→19:23)
[2020-03-05] MEDS: polyethylene glycoL POWDER 17 GM (MIRALAX) PACK PO SCH ×2 (08:18→19:23)
--- NOTE | 2020-03-05 09:30 | NUR ---
smoking cessation orders rec'd. [place] pamphlet/[facility] helpline information packet left on bedside table at this time, as patient was working with therapy. Will con't to monitor and return later in day for establishing rapport & discussion of smoking cessation.
--- NOTE | 2020-03-05 09:57 | Physical Therapy Daily Note ---
PT Daily Note-Current Subjective Patient in bed pre tx, agrees to PT, has no complaints of pain at rest. Patient is able to put her shirt on herself and get her pants on but needs min assist to pull pants up when standing. Appearance Patient in bed post tx with nurse call, phone, tray, all needs met. Mental Status Patient Orientation: Person, Place, Situation Transfers SCALE: Activities may be completed with or without assistive devices. 2-Jckeckskaj-vwufuvm completes the activity by him/herself with no assistance from a helper. 5-Set-up or Clean-up Assistance-helper sets up or cleans up; patient completes activity. [place] assists only prior to or following the activity. 4-Supervision or Touching Assistance-helper provides verbal cues and/or touching/steadying and/or contact guard assistance as patient completes activity. Assistance may be provided throughout the activity or intermittently. 3-Partial/Moderate Assistance-helper does LESS THAN HALF the effort. [place] lifts, holds or supports trunk or limbs, but provides less than half the effort. 2-Substantial/Maximal Assistance-helper does MORE THAN HALF the effort. [place] lifts or holds trunk or limbs and provides more than half the effort. 8-Vqyzfrwrs-tvdwsd does ALL the effort. Patient does none of the effort to complete the activity. Or, the assistance of 2 or more helpers is required for the patient to complete the activity. If activity was not attempted, code reason: 7-Patient Refused. 9-Not Applicable-not attempted and the patient did not perform the activity before the current illness, exacerbation or injury. 10-Not Attempted due to Environmental Limitations-(lack of equipment, weather restraints, etc.). 88-Not Attempted due to Medical Conditions or Safety Concerns. Roll Left & Right (QC): 6 Sit to Lying (QC): 4 Lying to Sitting/Side of Bed(Q: 4 Sit to Stand (QC): 4 Chair/Jft-pw-Vfnmg Xfer(QC): 4 Gait Training Distance: 120'x2 Walk 10 feet (QC): 4 Walk 50 ft with 2 Turns(QC): 4 Gait Persons Needed: 1 Gait Assistive Device: FWW smoother stepping on the left side, uses an AFO on the left side Exercises sidestepping in parallel bars 6'x6 NuStep Minutes: 15 NuStep Workload: 4 Treatments dressing, bed mobility and transfers, ambulation, LE strengthening Assessment Current Status: Fair Progress better steps, no LOB with transfers or ambulation PT Short Term Goals Short Term Goals Time Frame: Mar 07, 2020 Roll Left & Right: 6 Sit to lyin Lying to sitting on side of be: 6 Sit to stand: 4 Chair/rry-ej-dcltg transfer: 4 Walk 10 feet: 4 Walk 50 feet with two turns: 4 Walk 150 feet: 4 PT Detention Goals Detention Goals PT Documentation Improvement Specialist Goals Time Frame: Mar 21, 2020 Roll Left & Right (QC): 6 Sit to Lying (QC): 6 Lying-Sitting on Side/Bed(QC): 6 Sit to Stand (QC): 4 (SBA) Chair/Cxz-qd-Hauce Xfer(QC): 4 (SBA) Toilet Transfer (QC): 4 (SBA) Car Transfer (QC): 4 (SBA) Does the Patient Walk: Yes Walk 10 feet (QC): 4 (SBA) Walk 50ft with 2 Turns (QC): 4 (SBA) Walk 150 ft (QC): 4 (SBA) Walking 10ft on Uneven Surface: 4 (SBA) 1 Step (curb) (QC): 4 (CGA) 4 Steps (QC): 4 (CGA) 12 Steps (QC): 88 Picking up an Object (QC): 88 Does the Pt use WC or Scooter?: No Wheel 50 feet with 2 turns (QC: 6 Wheel 150 feet: 6 PT Plan Problem List Problem List: Activity Tolerance, Functional Strength, Safety, Balance, Gait, Transfer, Bed Mobility, ROM Treatment/Plan Treatment Plan: Continue Plan of Care Treatment Plan: Bed Mobility, Education, Functional Activity Cici, Functional Strength, Group Therapy, Gait, Safety, Therapeutic Exercise, Transfers Treatment Duration: Mar 21, 2020 Frequency: At least 5 of 7 days/Wk (IRF) Estimated Hrs Per Day: 1.5 hours per day Patient and/or Family Agrees t: Yes Safety Risks/Education Patient Education: Gait Training, Transfer Techniques, Correct Positioning, Safety Issues Teaching Recipient: Patient Teaching Methods: Demonstration, Discussion Response to Teaching: Reinforcement Needed Time/GCodes Time In: 0900 Time Out: 1000 Total Billed Treatment Time: 60 Total Billed Treatment 1 visit EX 15' FA 45' HENRY QUILES PT Mar 05, 2020 09:57
--- NOTE | 2020-03-05 11:31 | Occupational Ther Daily Note ---
OT Current Status-Daily Note Subjective Pt in bed when OT entered. Pt stated she had pain on the bottom of her left foot while wearing her AFO during PT this morning, did not rate pain. Pt stated she did not want to shower today. Pain Location Body Site: Foot Pain Description: NONE Comment: Pt stated that the bottom of her left foot was sore during PT. Appearance Pt is dressed in tshirt and sweat pants, hair brushed, and glasses on. Mental Status/Objective Patient Orientation: Person, Place, Time, Situation ADL-Treatment Therapy Code Descriptions/Definitions Functional [place] Measure: 0=Not Assessed/NA 4=Minimal Assistance 1=Total Assistance 5=Supervision or Setup 2=Maximal Assistance 6=Modified [place] 3=Moderate Assistance 7=Complete IndependenceSCALE: Activities may be completed with or without assistive devices. 3-Daptngjckx-hlmimzr completes the activity by him/herself with no assistance from a helper. 5-Set-up or Clean-up Assistance-helper sets up or cleans up; patient completes activity. [place] assists only prior to or following the activity. 4-Supervision or Touching Assistance-helper provides verbal cues and/or touching/steadying and/or contact guard assistance as patient completes activity. Assistance may be provided throughout the activity or intermittently. 3-Partial/Moderate Assistance-helper does LESS THAN HALF the effort. [place] lifts, holds or supports trunk or limbs, but provides less than half the effort. 2-Substantial/Maximal Assistance-helper does MORE THAN HALF the effort. [place] lifts or holds trunk or limbs and provides more than half the effort. 5-Wgjzatlqb-dgzrqh does ALL the effort. Patient does none of the effort to complete the activity. Or, the assistance of 2 or more helpers is required for the patient to complete the activity. If activity was not attempted, code reason: 7-Patient Refused. 9-Not Applicable-not attempted and the patient did not perform the activity before the current illness, exacerbation or injury. 10-Not Attempted due to Environmental Limitations-(lack of equipment, weather restraints, etc.). 88-Not Attempted due to Medical Conditions or Safety Concerns. Supine to EOB using bed rail, independently. Pt donned socks and right show with stand-by assist EOB. OT donned left shoe and AFO. After treatment in the therapy gym. Pt went the bathroom and transferred to toilet with CGA. Pt completed toileting sitting on toilet then pulling down LE clothings with CGA for balance. Other Treatment Pt walked to therapy gym with walker and CGA. Pt took one rest break in the gym before playing 3 games of Jarrod with OTS while standing at the window ledge to work on dynamic standing balance. HAAS provided standby assist and pt used card barr. Pt took a sitting rest break. Pt placed pegs in a resisted peg board while standing at the window ledge using her left hand, HAAS provided stand-by assist. Pt took a sitting rest break. Pt pulled pegs out of the resisted peg board while standing at the window ledge with right hand. OTS assisted putting pegs back into the box as needed and HAAS standby assist. Pt took sitting rest break. Pt completed over the head reaching activity by moving rings from one side of the ROM arc to the other and back again using L UE. Pt took a sitting rest break. Pt ambulated with roller walker and CGA to kitchen area. Pt took a sitting rest break. Pt used the kitchen counter as a brace and side stepped from left to right down the counter. Pt opened two overhead cabinets. Pt used L UE to brace self on the counter. Pt took a walk around the unit with one sitting rest break d/t her legs buckling while standing. Pt returned to room where she used the restroom. After session, pt lying in bed with call light/phone in reach. All needs were met. Education OT Patient Education: Energy conservation Teaching Recipient: Patient Teaching Methods: Demonstration, Discussion Response to Teaching: Return Demonstration, Reinforcement Needed OT Short Term Goals Short Term Goals Time Frame: Mar 13, 2020 Shower/bathe self: 5 Upper body dressin Lower body dressin Putting on/taking off footwear: 5 OT [facility] Goals Product Test Engineer Goals Time Frame: Mar 22, 2020 Eating (QC): 6 Oral Hygiene (QC): 6 Toileting Hygiene (QC): 6 Shower/Bathe Self (QC): 6 Upper Body Dressing (QC): 6 Lower Body Dressing (QC): 6 On/Off Footwear (QC): 6 Additional Goals: 1-Demonstrate ADL Tasks, 2-Verbalize Understanding, 3- ImproveStrength/Cici 1=Demonstrate adherence to instructed precautions during ADL tasks. 2=Patient will verbalize/demonstrate understanding of assistive devices/modifications for ADL. 3=Patient will improve strength/tolerance for activity to enable patient to perform ADL's. OT Education/Plan Problem List/Assessment Assessment: Decreased Activ Tolerance, Decreased UE Strength, Impaired Funct Balance, Impaired Self-Care Skills, Restricted Funct UE ROM Discharge Recommendations Plan/Recommendations: Continue POC Treatment Plan/Plan of Care Patient would benefit from OT for education, treatment and training to promote independence in ADL's, mobility, safety and/or upper extremity function for ADL's. Plan of Care: ADL Retraining, Functional Mobility, Group Exercise/Act as Ind, UE Funct Exercise/Act, UE Neuromus Re-Ed/Coord Treatment Duration: Mar 22, 2020 Frequency: At least 5 of 7 days/Wk (IRF) Estimated Hrs Per Day: 1.5 hours per day (1-1.5 hours per day) Agreement: Yes Rehab Potential: Fair Time/GCodes Start Time: 10:00 Stop Time: 11:30 Total Time Billed (hr/min): 90 Billed Treatment Time 1 visit-ADL 2 (30 min) FA 1 (20 min) EX 3 (40 min) ANICETO BURGER Mar 05, 2020 11:31
--- NOTE | 2020-03-05 13:48 | Physical Therapy Daily Note ---
PT Daily Note-Current Subjective Patient in bed pre tx, agrees to PT, has no complaints of pain at rest. Appearance Patient in bed post tx with nurse call, phone, tray, all needs met. Mental Status Patient Orientation: Person, Place, Situation Transfers SCALE: Activities may be completed with or without assistive devices. 0-Jutaijlhru-tszohui completes the activity by him/herself with no assistance from a helper. 5-Set-up or Clean-up Assistance-helper sets up or cleans up; patient completes activity. [place] assists only prior to or following the activity. 4-Supervision or Touching Assistance-helper provides verbal cues and/or touch ing/steadying and/or contact guard assistance as patient completes activity. Assistance may be provided throughout the activity or intermittently. 3-Partial/Moderate Assistance-helper does LESS THAN HALF the effort. [place] lifts, holds or supports trunk or limbs, but provides less than half the effort. 2-Substantial/Maximal Assistance-helper does MORE THAN HALF the effort. [place] lifts or holds trunk or limbs and provides more than half the effort. 2-Cxjxrwmhn-dhhqdk does ALL the effort. Patient does none of the effort to complete the activity. Or, the assistance of 2 or more helpers is required for the patient to complete the activity. If activity was not attempted, code reason: 7-Patient Refused. 9-Not Applicable-not attempted and the patient did not perform the activity before the current illness, exacerbation or injury. 10-Not Attempted due to Environmental Limitations-(lack of equipment, weather restraints, etc.). 88-Not Attempted due to Medical Conditions or Safety Concerns. Roll Left & Right (QC): 6 Sit to Lying (QC): 4 Lying to Sitting/Side of Bed(Q: 4 Sit to Stand (QC): 4 Chair/Xcs-vc-Fnrxb Xfer(QC): 4 Wheelchair Training Does the Pt Use a Wheelchair?: Yes Wheel 50 ft with 2 turns (QC): 4 Wheel 150 ft (QC): 4 Type of Wheelchair: Manual 120'x2 Exercises Standing: Hip Abduction, Heel/toe raises, Mini squats, Step-ups (x10) Standing Reps: 15 LAQ alternating for 5 min Treatments LE exercise, WC mobility, bed mobility and transfers Assessment Current Status: Fair Progress no LOB with transfers PT Short Term Goals Short Term Goals Time Frame: Mar 07, 2020 Roll Left & Right: 6 Sit to lyin Lying to sitting on side of be: 6 Sit to stand: 4 Chair/cge-fz-dzeuk transfer: 4 Walk 10 feet: 4 Walk 50 feet with two turns: 4 Walk 150 feet: 4 PT [facility] Goals Women'S Basketball Coach Goals PT Women'S Basketball Coach Goals Time Frame: Mar 21, 2020 Roll Left & Right (QC): 6 Sit to Lying (QC): 6 Lying-Sitting on Side/Bed(QC): 6 Sit to Stand (QC): 4 (SBA) Chair/Dbb-aw-Kjhpy Xfer(QC): 4 (SBA) Toilet Transfer (QC): 4 (SBA) Car Transfer (QC): 4 (SBA) Does the Patient Walk: Yes Walk 10 feet (QC): 4 (SBA) Walk 50ft with 2 Turns (QC): 4 (SBA) Walk 150 ft (QC): 4 (SBA) Walking 10ft on Uneven Surface: 4 (SBA) 1 Step (curb) (QC): 4 (CGA) 4 Steps (QC): 4 (CGA) 12 Steps (QC): 88 Picking up an Object (QC): 88 Does the Pt use WC or Scooter?: No Wheel 50 feet with 2 turns (QC: 6 Wheel 150 feet: 6 PT Plan Problem List Problem List: Activity Tolerance, Functional Strength, Safety, Balance, Gait, Transfer, Bed Mobility, ROM Treatment/Plan Treatment Plan: Continue Plan of Care Treatment Plan: Bed Mobility, Education, Functional Activity Cici, Functional Strength, Group Therapy, Gait, Safety, Therapeutic Exercise, Transfers Treatment Duration: Mar 21, 2020 Frequency: At least 5 of 7 days/Wk (IRF) Estimated Hrs Per Day: 1.5 hours per day Patient and/or Family Agrees t: Yes Safety Risks/Education Patient Education: Transfer Techniques, Correct Positioning, W/C Management, Safety Issues Teaching Recipient: Patient Teaching Methods: Demonstration, Discussion Response to Teaching: Reinforcement Needed Time/GCodes Time In: 1320 Time Out: 1350 Total Billed Treatment Time: 30 Total Billed Treatment 1 visit EX 15' FA 15' HENRY QUILES PT Mar 05, 2020 13:47
[2020-03-05] MEDS: ENOXAPARIN 30 MG/0.3 ML (LOVENOX) SYR SC SCH (15:40)
[2020-03-05] MEDS: CALCIUM CARBONATE 500 MG (TUMS) TAB.CHEW PO PRN (15:40)
--- NOTE | 2020-03-05 15:58 | NUR ---
CM/SS ADMISSION Patient admitted to ARU 02/29/20 from [facility] for CVA with left sided deficits. Additional comorbidities are, in part, smoking, THC dependence, chronic pain, insulin dependent DM, HTN, HLP, PVD, right ankle ulcer. Patient resided at home with her daughter, Danyell Stevens. Her sister resides behind her, all in [place], [place]. Patient wishes to return home as soon as safe to do so. PCP: JAVIER Harper [place], [place] [phone] PHARMACY: [facility] INSURANCE: Medicaid [place] DME: Has FWW, 4WW rollator with seat/brakes, handicap bath/shower with seat, grab bars. 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 BARRIERS TO DISCHARGE: No significant barriers noted thus far. Medicaid funding only, depending on assistive devices needed. 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 CONTACTS: Earlene Moseley, Sister [address] [facility] [address] [place] [address] Danyell Stevens, Daughter Resides with patient [address] [place] [address] [address] [place] [address] Patient understood the purpose and process of the weekly patient care conference and that her first review would be March 06.
[2020-03-05 16:48] VITALS: BP 133/73
[2020-03-05] MEDS: MONTELUKAST 10 MG (SINGULAIR) TAB PO SCH (20:44)
[2020-03-05] MEDS: PREGABALIN 100 MG (LYRICA) CAPSULE PO SCH (20:44)
[2020-03-05] MEDS: traZODone 50 MG (DESYREL) TAB PO SCH (20:44)
[2020-03-06] MEDS: inSUlin ASPART (NovoLOG) 1 UNIT/0.01 ML (CHARGE PER UNIT) SC SCH ×4 (05:04→21:19)
[2020-03-06 05:05] VITALS: BP 138/61
--- NOTE | 2020-03-06 05:50 | PM&R Progress Note ---
Subjective HPI/CC On Admission Date Seen by Provider: Mar 06, 2020 Time Seen by Provider: 09:00 Subjective/Events-last exam 03/06/20: Blood sugars ran low a little bit today so will decrease Levemir Having more bowel movements DC is planned for Wednesday Overall doing very well 03/05/20: Increasing Lyrica to 100mg at night since she is not taking the Gabapentin Still not sleeping well No major issues Bowels are moving Drinks a lot of diet [place] 03/04/20: Proton pump inhibitor ordered for GERD issues Didnt sleep well last night, I think that this is a chronic issue Lyrica 50 Mg given at night and Gabapentin switched to prn QID will help 03/03/20: No issues Sugars improved no hypoglycemia noted after adjusting insulin down Gabapentin will be changed to QID PRN the way she takes it at home and will start Lyrica tonight 50mg at night Ankle almost healed ulceration 03/02/20: Sugar too low this am Holding Levemir for now SSI A for now BM x 3 after constipation since 02/17 Lyrica may be initiated in place on Gabapentin as she has requested 03/01/20: Settling in well No pain reported Labs checked and all stable No BM since 02/17 so will initiate more aggressive regimen Left sided weakness is a challenge for the patient 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 of Systems Neurological: Weakness, Incoordination Objective Exam Vital Signs Vital Signs Date Time Temp Pulse Resp B/P (MAP) Pulse Ox O2 Delivery O2 Flow Rate FiO2 03/07/20 20:05 98 High Flow N/C 03/07/20 17:19 37.2 86 18 137/64 (88) Capillary Refill : Less Than 3 Seconds General Appearance: No Apparent Distress, WD/WN, Chronically ill, Thin HEENT: PERRL/EOMI, Normal ENT Inspection, Pharynx Normal Neck: Full Range of Motion, Normal Inspection, Non Tender, Supple, Carotid Bruit Respiratory: Chest Non Tender, Lungs Clear, Normal Breath Sounds, No Accessory Muscle Use, No Respiratory Distress Cardiovascular: Regular Rate, Rhythm, No Edema, No Gallop, No JVD, No Murmur, Normal Peripheral Pulses Gastrointestinal: Normal Bowel Sounds, No Organomegaly, No Pulsatile Mass, Non Tender, Soft Back: Normal Inspection, No CVA Tenderness, No Vertebral Tenderness Extremity: Normal Capillary Refill, Normal Inspection, Normal Range of Motion, Non Tender, No Calf Tenderness, No Pedal Edema Neurologic/Psychiatric: Alert, Oriented x3, Normal Mood/Affect, environmental sampler II-XII Norm as Tested, Abnormal Gait, Motor Weakness (left sided weakness 2/5 upper and lowe r) Skin: Normal Color, Warm/Dry, Cyanosis (chronic type of feet to mid-tibia) Lymphatic: No Adenopathy Results/Procedures Lab Patient resulted labs reviewed. FIM Transfers Therapy Code Descriptions/Definitions Functional [place] Measure: 0=Not Assessed/NA 4=Minimal Assistance 1=Total Assistance 5=Supervision or Setup 2=Maximal Assistance 6=Modified [place] 3=Moderate Assistance 7=Complete IndependenceSCALE: Activities may be completed with or without assistive devices. 3-Dcaaclxxna-foucqgo completes the activity by him/herself with no assistance from a helper. 5-Set-up or Clean-up Assistance-helper sets up or cleans up; patient completes activity. [place] assists only prior to or following the activity. 4-Supervision or Touching Assistance-helper provides verbal cues and/or touching/steadying and/or contact guard assistance as patient completes activity. Assistance may be provided throughout the activity or intermittently. 3-Partial/Moderate Assistance-helper does LESS THAN HALF the effort. [place] lifts, holds or supports trunk or limbs, but provides less than half the effort. 2-Substantial/Maximal Assistance-helper does MORE THAN HALF the effort. [place] lifts or holds trunk or limbs and provides more than half the effort. 9-Sutdwtyea-cwmuhn does ALL the effort. Patient does none of the effort to complete the activity. Or, the assistance of 2 or more helpers is required for the patient to complete the activity. If activity was not attempted, code reason: 7-Patient Refused. 9-Not Applicable-not attempted and the patient did not perform the activity before the current illness, exacerbation or injury. 10-Not Attempted due to Environmental Limitations-(lack of equipment, weather restraints, etc.). 88-Not Attempted due to Medical Conditions or Safety Concerns. Roll Left to Right (QC): 6 Sit to Lying (QC): 4 Sit to Stand (QC): 4 Chair/Hwj-jf-Frfmp Xfer(QC): 4 Car Transfer (QC): 3 Gait Training Does the Patient Walk?: Yes Distance: 120'x2 Walk 10 feet (QC): 4 Walk 50 ft with 2 Turns(QC): 4 Walk 150 ft (QC): 88 Walking 10ft/uneven surface-QC: 3 Gait Persons Needed: 1 Gait Assistive Device: FWW Wheelchair Training Does the Pt Use a Wheelchair?: Yes Distance: 50' Wheel 50 ft with 2 turns (QC): 4 Wheel 150 ft (QC): 4 Type of Wheelchair: Manual Stair Training #of Steps: 1 1 Step (curb) (QC): 3 4 Steps (QC): 88 12 Steps (QC): 88 Balance Picking up an Object (QC): 88 ADL-Treatment Eating (QC): 6 (Pt able to open packages and containers by self and uses regular utensils.) Oral Hygiene (QC): 4 (Standing at sink with PT, CGA. Pt able to complete oral and denture care by self.) Bathing Location: L Arm, R Arm, L Upper Leg, R Upper Leg, L Lower Leg (including foot), R Lower Leg (including foot), Chest, Abdomen, Buttocks, Perineal Area Shower/Bathe Self (QC): 4 Upper Body Dressing (QC): 5 Lower Body Dressing (QC): 4 On/Off Footwear (QC): 5 Toileting Hygiene (QC): 4 (SBA for hygiene and clothing manipulation.) Toilet Transfer (QC): 4 (SBA for transfer using FWW and grabbars.) Assessment/Plan Assessment and Plan Assess & Plan/Chief Complaint Assessment: CVA with left sided weakness Smoker THC dependent Chronic pain DM insulin dependent HTN HLP PVD Right ankle ulcer Constipation Plan: Home meds Plavix, ASA, statin IRF protocol 03/01/20: Labs reviewed Pain control Aggressive therapy Wound care on ankle ulcer BM aggressive regimen 03/02/20: Hold Levemir Accucheck ac/hs SSI Lyrica may be an option 03/03/20: Change Gabapentin to QID prn and start Lyrica at night 50mg at her request Insulin adjusted down Doing well 03/04/20: PPI Monitor pain IRF protocol 03/05/20: Continue aggressive PT OT Increase Lyrica 03/06/20: Minimize insulin Lyrica (1) CVA (cerebral vascular accident) (2) Smoker (3) Methamphetamine use (4) Tetrahydrocannabinol (THC) dependence (5) Diabetes mellitus, insulin dependent (IDDM), uncontrolled (6) Hypertension (7) Hyperlipidemia (8) Frailty (9) PVD (peripheral vascular disease) (10) Ankle ulcer JESI MCDONALD DO Mar 06, 2020 05:50
[2020-03-06 08:00] VITALS: BP 147/65
--- NOTE | 2020-03-06 08:59 | Occupational Ther Daily Note ---
OT Current Status-Daily Note Subjective Pt alert, lying in bed. Pt agrees to therapy. No c/o pain at this time. Pt stated that she slept well last night. Mental Status/Objective Patient Orientation: Person, Place, Time, Situation ADL-Treatment Pt agrees to shower. Supine to EOB independently with HOB raised. Independent for bed mobility with HOB raised. Close SBA to ambulated to bathroom and transfer onto toilet. SBA for clothing manipulation and completes hygiene sitting on toilet. SBA for shower transfer using FWW, grabbars and shower bench. Pt completes shower independently using hand held shower, grabbars and shower bench. After set up, pt completes upper body dressing by self. Threads clothing over feet independently, SBA while standing to hike pants over hips. SBA standing at sink to complete oral care by self. Pt states that she has handicap accessible bathroom and has adjustable bed. Pt had 1 LOB, required assist to regain balance. Therapy Code Descriptions/Definitions Functional [place] Measure: 0=Not Assessed/NA 4=Minimal Assistance 1=Total Assistance 5=Supervision or Setup 2=Maximal Assistance 6=Modified [place] 3=Moderate Assistance 7=Complete IndependenceSCALE: Activities may be completed with or without assistive devices. 8-Ufbxtkmzxl-xtutxdr completes the activity by him/herself with no assistance from a helper. 5-Set-up or Clean-up Assistance-helper sets up or cleans up; patient completes activity. [place] assists only prior to or following the activity. 4-Supervision or Touching Assistance-helper provides verbal cues and/or touchin g/steadying and/or contact guard assistance as patient completes activity. Assistance may be provided throughout the activity or intermittently. 3-Partial/Moderate Assistance-helper does LESS THAN HALF the effort. [place] lifts, holds or supports trunk or limbs, but provides less than half the effort. 2-Substantial/Maximal Assistance-helper does MORE THAN HALF the effort. [place] lifts or holds trunk or limbs and provides more than half the effort. 7-Omfgqtzgw-zyefdh does ALL the effort. Patient does none of the effort to complete the activity. Or, the assistance of 2 or more helpers is required for the patient to complete the activity. If activity was not attempted, code reason: 7-Patient Refused. 9-Not Applicable-not attempted and the patient did not perform the activity before the current illness, exacerbation or injury. 10-Not Attempted due to Environmental Limitations-(lack of equipment, weather restraints, etc.). 88-Not Attempted due to Medical Conditions or Safety Concerns. Oral Hygiene (QC): 4 Shower/Bathe Self (QC): 6 Upper Body Dressing (QC): 5 Lower Body Dressing (QC): 4 On/Off Footwear: 5 Toileting Hygiene (QC): 4 Toilet Transfer (QC): 4 Other Treatment Pt ambulated to laundry room to complete own laundry with close SBA. Pt then ambulated to rehab gym with 1 break. Pt then completed arm bike 5 min standing at 15 ponce resistance and 5 min sitting at minimal resistance. Pt fatiguing quickly today during tasks. After session, pt sitting in recliner with call light/phone in reach. All needs met in room. OT Short Term Goals Short Term Goals Time Frame: Mar 13, 2020 Shower/bathe self: 5 Upper body dressin Lower body dressin Putting on/taking off footwear: 5 OT Snf Goals Forming Process Worker Goals Time Frame: Mar 22, 2020 Eating (QC): 6 Oral Hygiene (QC): 6 Toileting Hygiene (QC): 6 Shower/Bathe Self (QC): 6 Upper Body Dressing (QC): 6 Lower Body Dressing (QC): 6 On/Off Footwear (QC): 6 Additional Goals: 1-Demonstrate ADL Tasks, 2-Verbalize Understanding, 3-ImproveStrength/Cici 1=Demonstrate adherence to instructed precautions during ADL tasks. 2=Patient will verbalize/demonstrate understanding of assistive devices/modifications for ADL. 3=Patient will improve strength/tolerance for activity to enable patient to perform ADL's. OT Education/Plan Problem List/Assessment Assessment: Decreased Activ Tolerance, Decreased UE Strength, Impaired Funct Balance, Restricted Funct UE ROM Discharge Recommendations Plan/Recommendations: Continue POC Treatment Plan/Plan of Care Patient would benefit from OT for education, treatment and training to promote independence in ADL's, mobility, safety and/or upper extremity function for ADL's. Plan of Care: ADL Retraining, Functional Mobility, Group Exercise/Act as Ind, UE Funct Exercise/Act, UE Neuromus Re-Ed/Coord Treatment Duration: Mar 22, 2020 Frequency: At least 5 of 7 days/Wk (IRF) Estimated Hrs Per Day: 1.5 hours per day (1-1.5 hours per day) Agreement: Yes Rehab Potential: Fair Time/GCodes Start Time: 07:30 Stop Time: 09:00 Total Time Billed (hr/min): 90 Billed Treatment Time 1 visit-ADL 4 (60 min) FA 1 (20 min) EX 1 (10 min) ANICETO BURGER Mar 06, 2020 08:59
--- NOTE | 2020-03-06 09:45 | NUR ---
Clarified with Dr. Mackey if AM levemir should be given since 0600 glucose of 66, but now reading up to 114. Levemir dosage changed. Patient denies trouble swallowing or with speech and feels left arm and leg strength improved.
--- NOTE | 2020-03-06 09:53 | Physical Therapy Daily Note ---
PT Daily Note-Current Subjective Pt. expresses she wants to go home and feels she is ready except for stairs, pt. has 4 steps with rails and help at home Pain Location: No Pain Reported Mental Status Patient Orientation: Normal For Age Attachments: Other-See Comments (AFO LLE , mask) Transfers SCALE: Activities may be completed with or without assistive devices. 0-Tjnvsaeeqo-nxzfxyg completes the activity by him/herself with no assistance from a helper. 5-Set-up or Clean-up Assistance-helper sets up or cleans up; patient completes activity. [place] assists only prior to or following the activity. 4-Supervision or Touching Assistance-helper provides verbal cues and/or touching/steadying and/or contact guard assistance as patient completes activity. Assistance may be provided throughout the activity or intermittently. 3-Partial/Moderate Assistance-helper does LESS THAN HALF the effort. [place] lifts, holds or supports trunk or limbs, but provides less than half the effort. 2-Substantial/Maximal Assistance-helper does MORE THAN HALF the effort. [place] lifts or holds trunk or limbs and provides more than half the effort. 6-Bzlzjxsrb-rachzz does ALL the effort. Patient does none of the effort to complete the activity. Or, the assistance of 2 or more helpers is required for the patient to complete the activity. If activity was not attempted, code reason: 7-Patient Refused. 9-Not Applicable-not attempted and the patient did not perform the activity before the current illness, exacerbation or injury. 10-Not Attempted due to Environmental Limitations-(lack of equipment, weather restraints, etc.). 88-Not Attempted due to Medical Conditions or Safety Concerns. Roll Left & Right (QC): 6 Sit to Lying (QC): 6 Lying to Sitting/Side of Bed(Q: 6 Sit to Stand (QC): 6 Chair/Obj-ta-Wggvu Xfer(QC): 6 Gait Training Does the Patient Walk?: Yes Walk 10 feet (QC): 4 Walk 50 ft with 2 Turns(QC): 4 Walk 150 ft (QC): 4 Gait Persons Needed: 1 Gait Assistive Device: FWW gait is awkward as pts LUE/hand with increased tone hanging tightly to walker actually lifts it up and moves it awkwardly changing the course of her gait, however pt. not able just yet to ambulate with SPC or chaparro walker, will trial again this PM Stair Training Stair Training: Handrails/: 1 handrail #of Steps: 4 4 Steps (QC): 4 Stairs: Pattern: Step to needs assist at LUE for stability Exercises Supine Ex: Bridging, Ankle pumps, Quad Set, Rolling, Glut sets, Heel Slides, Short Arc Quads, Scooting, Straight leg raise, Hip abd/add Supine Reps: 15 NuStep Minutes: 8 NuStep Workload: 5 Assessment Current Status: Good Progress PT Short Term Goals Short Term Goals Time Frame: Mar 07, 2020 Roll Left & Right: 6 Sit to lyin Lying to sitting on side of be: 6 Sit to stand: 4 Chair/dtn-yx-lxprq transfer: 4 Walk 10 feet: 4 Walk 50 feet with two turns: 4 Walk 150 feet: 4 PT Alf Goals Alf Goals PT Engineering Clerk Goals Time Frame: Mar 21, 2020 Roll Left & Right (QC): 6 Sit to Lying (QC): 6 Lying-Sitting on Side/Bed(QC): 6 Sit to Stand (QC): 4 (SBA) Chair/Aqf-ux-Jxkgr Xfer(QC): 4 (SBA) Toilet Transfer (QC): 4 (SBA) Car Transfer (QC): 4 (SBA) Does the Patient Walk: Yes Walk 10 feet (QC): 4 (SBA) Walk 50ft with 2 Turns (QC): 4 (SBA) Walk 150 ft (QC): 4 (SBA) Walking 10ft on Uneven Surface: 4 (SBA) 1 Step (curb) (QC): 4 (CGA) 4 Steps (QC): 4 (CGA) 12 Steps (QC): 88 Picking up an Object (QC): 88 Does the Pt use WC or Scooter?: No Wheel 50 feet with 2 turns (QC: 6 Wheel 150 feet: 6 PT Plan Treatment/Plan Treatment Plan: Continue Plan of Care Treatment Plan: Bed Mobility, Education, Functional Activity Cici, Functional Strength, Group Therapy, Gait, Safety, Therapeutic Exercise, Transfers Treatment Duration: Mar 21, 2020 Frequency: At least 5 of 7 days/Wk (IRF) Estimated Hrs Per Day: 1.5 hours per day Patient and/or Family Agrees t: Yes Safety Risks/Education Patient Education: Gait Training, Transfer Techniques, Steps, Correct Positioning, Disease Process, Safety Issues Teaching Recipient: Patient Teaching Methods: Demonstration, Discussion Response to Teaching: Verbalize Understanding, Return Demonstration, Reinforcement Needed Time/GCodes Time In: 900 Time Out: 1000 Total Billed Treatment Time: 60 Total Billed Treatment 1,EX30m,[id number] JOSEF GONZALEZ GROUNDWATER CONSULTANT Mar 06, 2020 09:53
[2020-03-06] MEDS: ASPIRIN E.C. 81 MG (ECOTRIN) TAB PO SCH (09:59)
[2020-03-06] MEDS: VITAMIN D3 25 MCG (1,000 UNITS) TABLET PO SCH (09:59)
[2020-03-06] MEDS: polyethylene glycoL POWDER 17 GM (MIRALAX) PACK PO SCH ×2 (10:00→21:19)
[2020-03-06] MEDS: LACTULOSE SYRUP 10GM/15ML (ENULOSE) 30ML UDC PO SCH ×2 (10:00→21:19)
[2020-03-06] MEDS: CLOPIDOGREL 75 MG (PLAVIX) TABLET PO SCH (10:00)
[2020-03-06] MEDS: DOCUSATE SODIUM 100 MG (COLACE) CAP PO SCH ×2 (10:01→21:18)
[2020-03-06] MEDS: LINAGLIPTIN (TRADJENTA) 5 MG TABLET PO SCH (10:01)
[2020-03-06] MEDS: metFORMIN 500 MG (GLUCOPHAGE) TAB PO SCH ×2 (10:01→17:38)
[2020-03-06] MEDS: amLODIPine 2.5MG (NORVASC) TAB PO SCH (10:04)
[2020-03-06] MEDS: SENNA W/DOCUSATE (SENOKOT S) TABLET PO SCH ×2 (10:04→21:19)
[2020-03-06] MEDS: DULoxetine 30 MG (CYMBALTA) CAP PO SCH ×2 (10:06→10:07)
[2020-03-06] MEDS: CALCIUM CARBONATE 500 MG (TUMS) TAB.CHEW PO PRN ×2 (10:12→21:14)
[2020-03-06] MEDS: ADVAIR HFA 45/21 MCG INHALER 8 GM IH SCH ×2 (10:35→19:51)
--- NOTE | 2020-03-06 14:08 | Physical Therapy Daily Note ---
PT Daily Note-Current Subjective Pt. crying this after noon, mentions her divorce over a year ago, agrees to Rx but says her stomach is upset Mental Status Patient Orientation: Normal For Age Attachments: Other-See Comments (AFO LLE) Transfers SCALE: Activities may be completed with or without assistive devices. 4-Nddluazbqs-xwjjgpg completes the activity by him/herself with no assistance from a helper. 5-Set-up or Clean-up Assistance-helper sets up or cleans up; patient completes activity. [place] assists only prior to or following the activity. 4-Supervision or Touching Assistance-helper provides verbal cues and/or touching/steadying and/or contact guard assistance as patient completes activity. Assistance may be provided throughout the activity or intermittently. 3-Partial/Moderate Assistance-helper does LESS THAN HALF the effort. [place] lifts, holds or supports trunk or limbs, but provides less than half the effort. 2-Substantial/Maximal Assistance-helper does MORE THAN HALF the effort. [place] lifts or holds trunk or limbs and provides more than half the effort. 6-Zndikuusr-jevxij does ALL the effort. Patient does none of the effort to complete the activity. Or, the assistance of 2 or more helpers is required for the patient to complete the activity. If activity was not attempted, code reason: 7-Patient Refused. 9-Not Applicable-not attempted and the patient did not perform the activity before the current illness, exacerbation or injury. 10-Not Attempted due to Environmental Limitations-(lack of equipment, weather restraints, etc.). 88-Not Attempted due to Medical Conditions or Safety Concerns. in out bed SBA to CGA Gait Training Does the Patient Walk?: Yes Walk 10 feet (QC): 4 Gait Persons Needed: 1 Gait Assistive Device: Walker Benny initiated use of hemiwalker, Pt. ambulated 12 ft with good balance, needing instruction for sequence a few times, gait appears more stable than with FWW. Exercises Supine Ex: Bridging, Ankle pumps, Quad Set, Rolling, Glut sets, Heel Slides, Scooting, Straight leg raise, Hip abd/add Supine Reps: 20 Treatments pt. ambulated to toilet and wanted privacy for BM at end of Rx, call davalos at hand Assessment Current Status: Good Progress PT Short Term Goals Short Term Goals Time Frame: Mar 07, 2020 Roll Left & Right: 6 Sit to lyin Lying to sitting on side of be: 6 Sit to stand: 4 Chair/qry-cu-ujvst transfer: 4 Walk 10 feet: 4 Walk 50 feet with two turns: 4 Walk 150 feet: 4 PT Inspector Final Assembly Electrical Goals Inspector Final Assembly Electrical Goals PT Inspector Final Assembly Electrical Goals Time Frame: Mar 21, 2020 Roll Left & Right (QC): 6 Sit to Lying (QC): 6 Lying-Sitting on Side/Bed(QC): 6 Sit to Stand (QC): 4 (SBA) Chair/Jvn-rd-Oijqc Xfer(QC): 4 (SBA) Toilet Transfer (QC): 4 (SBA) Car Transfer (QC): 4 (SBA) Does the Patient Walk: Yes Walk 10 feet (QC): 4 (SBA) Walk 50ft with 2 Turns (QC): 4 (SBA) Walk 150 ft (QC): 4 (SBA) Walking 10ft on Uneven Surface: 4 (SBA) 1 Step (curb) (QC): 4 (CGA) 4 Steps (QC): 4 (CGA) 12 Steps (QC): 88 Picking up an Object (QC): 88 Does the Pt use WC or Scooter?: No Wheel 50 feet with 2 turns (QC: 6 Wheel 150 feet: 6 PT Plan Treatment/Plan Treatment Plan: Continue Plan of Care Treatment Plan: Bed Mobility, Education, Functional Activity Cici, Functional Strength, Group Therapy, Gait, Safety, Therapeutic Exercise, Transfers Treatment Duration: Mar 21, 2020 Frequency: At least 5 of 7 days/Wk (IRF) Estimated Hrs Per Day: 1.5 hours per day Patient and/or Family Agrees t: Yes Safety Risks/Education Patient Education: Gait Training, Correct Positioning, Safety Issues Teaching Recipient: Patient Teaching Methods: Demonstration, Discussion Response to Teaching: Verbalize Understanding, Return Demonstration, Reinforcement Needed Time/GCodes Time In: 1330 Time Out: 1400 Total Billed Treatment Time: 30 Total Billed Treatment 1,EX20m,GT15m JOSEF GONZALEZ PROTECTION CONSULTANT Mar 06, 2020 14:08
[2020-03-06] MEDS: ACETAMINOPHEN 325 MG TABLET PO PRN (14:20)
--- NOTE | 2020-03-06 14:33 | NUR ---
Patient Care Conference Discussed care team conference summary with patient and team's recommendation for discharge on 03/11/2020. Patient verbalized understanding and is in agreement with this plan. Also discussed team's recommendation for family teaching/education with daughter and/or sister prior to discharge, especially with steps to ensure family is able to safely assist with ascending/descending steps into home. Patient is in agreement with this as well. Patient voiced no further questions. Anticipate discharge home on 03/11/2020.
[2020-03-06] MEDS: PANTOPRAZOLE 40 MG (PROTONIX) TAB PO SCH (14:57)
[2020-03-06] MEDS: ENOXAPARIN 30 MG/0.3 ML (LOVENOX) SYR SC SCH (14:58)
--- NOTE | 2020-03-06 15:40 | NUR ---
CM/SS DISCHARGE PLANNING Spoke with patient's sister Earlene Moseley who stated she and patient's daughter Danyell would be assisting her as caregivers once home. Earlene and Danyell will come Wednesday, March 11 at 1000 for education/training and then patient will discharge home with them thereafter. DME: No new additional assistive devices noted. HHC: Recommending RN PT OT, will explore agencies in patient's service area.
[2020-03-06 17:39] VITALS: BP 133/61
--- NOTE | 2020-03-06 19:14 | NUR ---
Bedside report received from SANDRA HERNANDEZ & ABDULAZIZ HERNANDEZ, assume care of pt
[2020-03-06] MEDS: PREGABALIN 100 MG (LYRICA) CAPSULE PO SCH (21:13)
[2020-03-06] MEDS: traZODone 50 MG (DESYREL) TAB PO SCH (21:13)
[2020-03-06] MEDS: MONTELUKAST 10 MG (SINGULAIR) TAB PO SCH (21:14)
--- NOTE | 2020-03-06 21:14 | NUR ---
Pt has had several loose stools tonight, refused Colace, Miralax & Senokot, c/o heartburn given antacid 500mg
[2020-03-07] MEDS: ACETAMINOPHEN 325 MG TABLET PO PRN (01:29)
--- NOTE | 2020-03-07 01:29 | NUR ---
C\O pain in legs, pain level 8/10 on numeric scale, Tylenol 650mg given
--- NOTE | 2020-03-07 02:15 | NUR ---
Rates pain level 5/10 on numeric scale
--- NOTE | 2020-03-07 03:00 | NUR ---
Resting quietly in bed
[2020-03-07 06:00] VITALS: BP 128/58
[2020-03-07] MEDS: inSUlin ASPART (NovoLOG) 1 UNIT/0.01 ML (CHARGE PER UNIT) SC SCH ×4 (06:00→20:54)
[2020-03-07 08:00] VITALS: BP 141/60
[2020-03-07] MEDS ORDERED: PANTOPRAZOLE 40 MG (PROTONIX) TAB PO SCH (09:00)
--- NOTE | 2020-03-07 09:00 | NUR ---
Complaints of bilat leg cramps and tingling. States neurontin makes her sleepy, half dose of 300mg administered with good results.
[2020-03-07] MEDS: PANTOPRAZOLE 40 MG (PROTONIX) TAB PO SCH (09:20)
[2020-03-07] MEDS: DULoxetine 30 MG (CYMBALTA) CAP PO SCH ×2 (09:20)
[2020-03-07] MEDS: VITAMIN D3 25 MCG (1,000 UNITS) TABLET PO SCH (09:21)
[2020-03-07] MEDS: LINAGLIPTIN (TRADJENTA) 5 MG TABLET PO SCH (09:21)
[2020-03-07] MEDS: ASPIRIN E.C. 81 MG (ECOTRIN) TAB PO SCH (09:21)
[2020-03-07] MEDS: CLOPIDOGREL 75 MG (PLAVIX) TABLET PO SCH (09:22)
[2020-03-07] MEDS: amLODIPine 2.5MG (NORVASC) TAB PO SCH (09:22)
[2020-03-07] MEDS: metFORMIN 500 MG (GLUCOPHAGE) TAB PO SCH ×2 (09:22→17:45)
[2020-03-07] MEDS: GABAPENTIN 600 MG (NEURONTIN) TAB PO PRN ×2 (09:23→21:04)
[2020-03-07] MEDS: LACTULOSE SYRUP 10GM/15ML (ENULOSE) 30ML UDC PO SCH ×2 (09:30→21:35)
[2020-03-07] MEDS: polyethylene glycoL POWDER 17 GM (MIRALAX) PACK PO SCH ×2 (09:30→21:35)
[2020-03-07] MEDS: SENNA W/DOCUSATE (SENOKOT S) TABLET PO SCH ×2 (09:30→21:35)
[2020-03-07] MEDS: DOCUSATE SODIUM 100 MG (COLACE) CAP PO SCH ×2 (09:30→21:35)
--- NOTE | 2020-03-07 10:14 | Occupational Ther Daily Note ---
OT Current Status-Daily Note Subjective Pt alert, lying in bed. Pt stated that she had numbness and tingling from L knee to foot, reported to nrsg. Pt agrees to therapy. Mental Status/Objective Patient Orientation: Person, Place, Time, Situation Attachments: Other-See Comments (AFO) ADL-Treatment Pt declines shower. Supine to EOB with HOB elevated, independently. Ambulated using chaparro-walker in room with CGA, pt stated that she does not like it that well because she kicks it with R foot. Pt ambulated to closet and sat in chair to retrieve clothing for the day. Pt draped clothing over chaparro-walker and transported into bathroom. Close SBA for toilet transfer and clothing manipulation, independent with hygiene sitting on toilet. Pt ambulated to sink and stood with SBA to complete oral care and grooming. Pt sat in chair to complete dressing. Independent with upper body dressing and footwear. Pt is able to don/doff upper body clothing by self, SBA while pt stands to hike pants over hips. Pt then ambulated back to recliner. Nrsg in room. Therapy Code Descriptions/Definitions Functional [place] Measure: 0=Not Assessed/NA 4=Minimal Assistance 1=Total Assistance 5=Supervision or Setup 2=Maximal Assistance 6=Modified [place] 3=Moderate Assistance 7=Complete IndependenceSCALE: Activities may be completed with or without assistive devices. 5-Xdeboiobma-yxvdeob completes the activity by him/herself with no assistance from a helper. 5-Set-up or Clean-up Assistance-helper sets up or cleans up; patient completes activity. [place] assists only prior to or following the activity. 4-Supervision or Touching Assistance-helper provides verbal cues and/or touching/steadying and/or contact guard assistance as patient completes activity. Assistance may be provided throughout the activity or intermittently. 3-Partial/Moderate Assistance-helper does LESS THAN HALF the effort. [place] lifts, holds or supports trunk or limbs, but provides less than half the effort. 2-Substantial/Maximal Assistance-helper does MORE THAN HALF the effort. [place] lifts or holds trunk or limbs and provides more than half the effort. 5-Pwvouxajx-cdaxic does ALL the effort. Patient does none of the effort to complete the activity. Or, the assistance of 2 or more helpers is required for the patient to complete the activity. If activity was not attempted, code reason: 7-Patient Refused. 9-Not Applicable-not attempted and the patient did not perform the activity before the current illness, exacerbation or injury. 10-Not Attempted due to Environmental Limitations-(lack of equipment, weather restraints, etc.). 88-Not Attempted due to Medical Conditions or Safety Concerns. Oral Hygiene (QC): 4 Upper Body Dressing (QC): 6 Lower Body Dressing (QC): 4 On/Off Footwear: 6 Toileting Hygiene (QC): 4 Toilet Transfer (QC): 4 Other Treatment Pt ambulated to therapy gym to complete arm bike for 10 min at 15 ponce resistance to increase strength and activity tolerance for daily functional tasks. After session, pt sitting in recliner with call light/phone in reach. All needs met in room. OT Short Term Goals Short Term Goals Time Frame: Mar 13, 2020 Shower/bathe self: 5 Upper body dressin Lower body dressin Putting on/taking off footwear: 5 OT Skilled Nursing Goals Skilled Nursing Goals Time Frame: Mar 22, 2020 Eating (QC): 6 Oral Hygiene (QC): 6 Toileting Hygiene (QC): 6 Shower/Bathe Self (QC): 6 Upper Body Dressing (QC): 6 Lower Body Dressing (QC): 6 On/Off Footwear (QC): 6 Additional Goals: 1-Demonstrate ADL Tasks, 2-Verbalize Understanding, 3- ImproveStrength/Cici 1=Demonstrate adherence to instructed precautions during ADL tasks. 2=Patient will verbalize/demonstrate understanding of assistive devices/modifications for ADL. 3=Patient will improve strength/tolerance for activity to enable patient to perform ADL's. OT Education/Plan Problem List/Assessment Assessment: Decreased Activ Tolerance, Decreased UE Strength, Impaired Funct Balance, Impaired Self-Care Skills Discharge Recommendations Plan/Recommendations: Continue POC Treatment Plan/Plan of Care Patient would benefit from OT for education, treatment and training to promote independence in ADL's, mobility, safety and/or upper extremity function for ADL's. Plan of Care: ADL Retraining, Functional Mobility, Group Exercise/Act as Ind, UE Funct Exercise/Act, UE Neuromus Re-Ed/Coord Treatment Duration: Mar 22, 2020 Frequency: At least 5 of 7 days/Wk (IRF) Estimated Hrs Per Day: 1.5 hours per day (1-1.5 hours per day) Agreement: Yes Rehab Potential: Fair Time/GCodes Start Time: 08:30 Stop Time: 10:00 Total Time Billed (hr/min): 90 Billed Treatment Time 1 visit-ADL 5 (80 min) EX 1 (10 min) ANICETO BURGER Mar 07, 2020 10:13
[2020-03-07] MEDS: ADVAIR HFA 45/21 MCG INHALER 8 GM IH SCH ×2 (11:54→19:56)
--- NOTE | 2020-03-07 12:06 | Physical Therapy Daily Note ---
PT Daily Note-Current Subjective Pt sitting in recliner upon arrival. Pt agrees to PT. Pain Location: No Pain Reported Mental Status Patient Orientation: Person, Place, Time, Situation Attachments: Other-See Comments (AFO for LLE) Transfers SCALE: Activities may be completed with or without assistive devices. 9-Jypxipgolj-kwimxni completes the activity by him/herself with no assistance from a helper. 5-Set-up or Clean-up Assistance-helper sets up or cleans up; patient completes activity. [place] assists only prior to or following the activity. 4-Supervision or Touching Assistance-helper provides verbal cues and/or touching/steadying and/or contact guard assistance as patient completes activity. Assistance may be provided throughout the activity or intermittently. 3-Partial/Moderate Assistance-helper does LESS THAN HALF the effort. [place] lifts, holds or supports trunk or limbs, but provides less than half the effort. 2-Substantial/Maximal Assistance-helper does MORE THAN HALF the effort. [place] lifts or holds trunk or limbs and provides more than half the effort. 6-Cecvjlldr-spvgqw does ALL the effort. Patient does none of the effort to complete the activity. Or, the assistance of 2 or more helpers is required for the patient to complete the activity. If activity was not attempted, code reason: 7-Patient Refused. 9-Not Applicable-not attempted and the patient did not perform the activity before the current illness, exacerbation or injury. 10-Not Attempted due to Environmental Limitations-(lack of equipment, weather restraints, etc.). 88-Not Attempted due to Medical Conditions or Safety Concerns. Sit to Lying (QC): 6 Sit to Stand (QC): 4 Toilet Transfer (QC): 4 Weight Bearing Full Weight Bearing Full Weight Bearing Gait Training Does the Patient Walk?: Yes Distance: 150' Walk 10 feet (QC): 4 Walk 50 ft with 2 Turns(QC): 4 Walk 150 ft (QC): 4 Gait Persons Needed: 1 Gait Assistive Device: FWW As pt fatigues, shuffles L foot but will correct with VC. Exercises Supine Ex: Ankle pumps, Heel Slides, Short Arc Quads, Hip abd/add Supine Reps: 15 NuStep Minutes: 11 NuStep Workload: 4 Treatments TF to standing then uses BR. Pt amb. in hallway, takes short RB then uses Nustep for 11m at WL 4. Pt completes Supine EX on therapy mat using bolster for comfort. Pt amb. in hallway and returns to rest supine in bed. All needs met, call light in hand. Assessment Current Status: Good Progress Pt is fatigued due to just returning from OT tx. PT Short Term Goals Short Term Goals Time Frame: Mar 07, 2020 Roll Left & Right: 6 Sit to lyin Lying to sitting on side of be: 6 Sit to stand: 4 Chair/yiy-cx-rxndm transfer: 4 Walk 10 feet: 4 Walk 50 feet with two turns: 4 Walk 150 feet: 4 PT Hypoid Gear Tester Goals Hypoid Gear Tester Goals PT Hypoid Gear Tester Goals Time Frame: Mar 21, 2020 Roll Left & Right (QC): 6 Sit to Lying (QC): 6 Lying-Sitting on Side/Bed(QC): 6 Sit to Stand (QC): 4 (SBA) Chair/Bde-if-Flkhr Xfer(QC): 4 (SBA) Toilet Transfer (QC): 4 (SBA) Car Transfer (QC): 4 (SBA) Does the Patient Walk: Yes Walk 10 feet (QC): 4 (SBA) Walk 50ft with 2 Turns (QC): 4 (SBA) Walk 150 ft (QC): 4 (SBA) Walking 10ft on Uneven Surface: 4 (SBA) 1 Step (curb) (QC): 4 (CGA) 4 Steps (QC): 4 (CGA) 12 Steps (QC): 88 Picking up an Object (QC): 88 Does the Pt use WC or Scooter?: No Wheel 50 feet with 2 turns (QC: 6 Wheel 150 feet: 6 PT Plan Problem List Problem List: Activity Tolerance, Balance, Gait Treatment/Plan Treatment Plan: Continue Plan of Care Treatment Plan: Bed Mobility, Education, Functional Activity Cici, Functional Strength, Group Therapy, Gait, Safety, Therapeutic Exercise, Transfers Treatment Duration: Mar 21, 2020 Frequency: At least 5 of 7 days/Wk (IRF) Estimated Hrs Per Day: 1.5 hours per day Patient and/or Family Agrees t: Yes Safety Risks/Education Patient Education: Gait Training, Correct Positioning, Safety Issues Teaching Recipient: Patient Teaching Methods: Discussion Response to Teaching: Verbalize Understanding Time/GCodes Time In: 1000 Time Out: 1100 Total Billed Treatment Time: 60 Total Billed Treatment 1, GT (15m), EX x2 (30m) & FA (15m) ERNESTINE MCGEE METAL DIE FINISHER Mar 07, 2020 12:06
--- NOTE | 2020-03-07 13:17 | PM&R Progress Note ---
Subjective HPI/CC On Admission Date Seen by Provider: Mar 07, 2020 Time Seen by Provider: 13:00 Subjective/Events-last exam 03/07/20: Leg cramps, gave Gabapentin only 300mg to decrease sedation Sugars are ok now DC Wednesday03/05/20: Increasing Lyrica to 100mg at night since she is not taking the Gabapentin Still not sleeping well No major issues Bowels are moving Drinks a lot of diet [place] 03/04/20: Proton pump inhibitor ordered for GERD issues Didnt sleep well last night, I think that this is a chronic issue Lyrica 50 Mg given at night and Gabapentin switched to prn QID will help 03/03/20: No issues Sugars improved no hypoglycemia noted after adjusting insulin down Gabapentin will be changed to QID PRN the way she takes it at home and will start Lyrica tonight 50mg at night Ankle almost healed ulceration 03/02/20: Sugar too low this am Holding Levemir for now SSI A for now BM x 3 after constipation since 02/17 Lyrica may be initiated in place on Gabapentin as she has requested 03/01/20: Settling in well No pain reported Labs checked and all stable No BM since 02/17 so will initiate more aggressive regimen Left sided weakness is a challenge for the patient Conferred with animal groomer of Systems Neurological: Weakness, Incoordination Objective Exam Vital Signs Vital Signs Date Time Temp Pulse Resp B/P (MAP) Pulse Ox O2 Delivery O2 Flow Rate FiO2 03/07/20 20:05 98 High Flow N/C 03/07/20 17:19 37.2 86 18 137/64 (88) Capillary Refill : Less Than 3 Seconds General Appearance: No Apparent Distress, WD/WN, Chronically ill, Thin HEENT: PERRL/EOMI, Normal ENT Inspection, Pharynx Normal Neck: Full Range of Motion, Normal Inspection, Non Tender, Supple, Carotid Bruit Respiratory: Chest Non Tender, Lungs Clear, Normal Breath Sounds, No Accessory Muscle Use, No Respiratory Distress Cardiovascular: Regular Rate, Rhythm, No Edema, No Gallop, No JVD, No Murmur, Normal Peripheral Pulses Gastrointestinal: Normal Bowel Sounds, No Organomegaly, No Pulsatile Mass, Non Tender, Soft Back: Normal Inspection, No CVA Tenderness, No Vertebral Tenderness Extremity: Normal Capillary Refill, Normal Inspection, Normal Range of Motion, Non Tender, No Calf Tenderness, No Pedal Edema Neurologic/Psychiatric: Alert, Oriented x3, Normal Mood/Affect, glass cutting machine operator II-XII Norm as Tested, Abnormal Gait, Motor Weakness (left sided weakness 2/5 upper and lower) Skin: Normal Color, Warm/Dry, Cyanosis (chronic type of feet to mid-tibia) Lymphatic: No Adenopathy Results/Procedures Lab Patient resulted labs reviewed. FIM Transfers Therapy Code Descriptions/Definitions Functional [place] Measure: 0=Not Assessed/NA 4=Minimal Assistance 1=Total Assistance 5=Supervision or Setup 2=Maximal Assistance 6=Modified [place] 3=Moderate Assistance 7=Complete IndependenceSCALE: Activities may be completed with or without assistive devices. 4-Ggniieowvb-jzrwvtj completes the activity by him/herself with no assistance from a helper. 5-Set-up or Clean-up Assistance-helper sets up or cleans up; patient completes activity. [place] assists only prior to or following the activity. 4-Supervision or Touching Assistance-helper provides verbal cues and/or touching/steadying and/or contact guard assistance as patient completes activ ity. Assistance may be provided throughout the activity or intermittently. 3-Partial/Moderate Assistance-helper does LESS THAN HALF the effort. [place] lifts, holds or supports trunk or limbs, but provides less than half the effort. 2-Substantial/Maximal Assistance-helper does MORE THAN HALF the effort. [place] lifts or holds trunk or limbs and provides more than half the effort. 8-Pfetjbcqq-zqingu does ALL the effort. Patient does none of the effort to complete the activity. Or, the assistance of 2 or more helpers is required for the patient to complete the activity. If activity was not attempted, code reason: 7-Patient Refused. 9-Not Applicable-not attempted and the patient did not perform the activity before the current illness, exacerbation or injury. 10-Not Attempted due to Environmental Limitations-(lack of equipment, weather restraints, etc.). 88-Not Attempted due to Medical Conditions or Safety Concerns. Roll Left to Right (QC): 6 Sit to Lying (QC): 6 Sit to Stand (QC): 4 Chair/Pef-wq-Ctvxq Xfer(QC): 6 Car Transfer (QC): 3 Gait Training Does the Patient Walk?: Yes Distance: 150' Walk 10 feet (QC): 4 Walk 50 ft with 2 Turns(QC): 4 Walk 150 ft (QC): 4 Walking 10ft/uneven surface-QC: 3 Gait Persons Needed: 1 Gait Assistive Device: FWW Wheelchair Training Does the Pt Use a Wheelchair?: Yes Distance: 50' Wheel 50 ft with 2 turns (QC): 4 Wheel 150 ft (QC): 4 Type of Wheelchair: Manual Stair Training Stair Training: Handrails/: 1 handrail #of Steps: 4 1 Step (curb) (QC): 3 4 Steps (QC): 4 12 Steps (QC): 88 Stairs: Pattern: Step to Balance Picking up an Object (QC): 88 ADL-Treatment Eating (QC): 6 (Pt able to open packages and containers by self and uses regular utensils.) Oral Hygiene (QC): 4 Bathing Location: L Arm, R Arm, L Upper Leg, R Upper Leg, L Lower Leg (including foot), R Lower Leg (including foot), Chest, Abdomen, Buttocks, Nhi tatianna Area Shower/Bathe Self (QC): 6 Upper Body Dressing (QC): 6 Lower Body Dressing (QC): 4 On/Off Footwear (QC): 6 Toileting Hygiene (QC): 4 Toilet Transfer (QC): 4 Assessment/Plan Assessment and Plan Assess & Plan/Chief Complaint Assessment: CVA with left sided weakness Smoker THC dependent Chronic pain DM insulin dependent HTN HLP PVD Right ankle ulcer Constipation Plan: Home meds Plavix, ASA, statin IRF protocol 03/01/20: Labs reviewed Pain control Aggressive therapy Wound care on ankle ulcer BM aggressive regimen 03/02/20: Hold Levemir Accucheck ac/hs SSI Lyrica may be an option 03/03/20: Change Gabapentin to QID prn and start Lyrica at night 50mg at her request Insulin adjusted down Doing well 03/04/20: PPI Monitor pain IRF protocol 03/05/20: Continue aggressive PT OT Increase Lyrica 03/06/20: Minimize insulin Lyrica 03/07/20: Gabapentin lower dose Monitor pain DC Wednesday (1) CVA (cerebral vascular accident) (2) Smoker (3) Methamphetamine use (4) Tetrahydrocannabinol (THC) dependence (5) Diabetes mellitus, insulin dependent (IDDM), uncontrolled (6) Hypertension (7) Hyperlipidemia (8) Frailty (9) PVD (peripheral vascular disease) (10) Ankle ulcer JESI MCDONALD DO Mar 07, 2020 13:16
--- NOTE | 2020-03-07 14:09 | Physical Therapy Daily Note ---
PT Daily Note-Current Subjective Pt L sidelying upon arrival. Pt agrees to PT. Pain Location: No Pain Reported Mental Status Patient Orientation: Person, Place, Situation Attachments: Other-See Comments (AFO for LLE) Transfers SCALE: Activities may be completed with or without assistive devices. 2-Foigumavxq-eutleak completes the activity by him/herself with no assistance from a helper. 5-Set-up or Clean-up Assistance-helper sets up or cleans up; patient completes activity. [place] assists only prior to or following the activity. 4-Supervision or Touching Assistance-helper provides verbal cues and/or touching/steadying and/or contact guard assistance as patient completes activity. Assistance may be provided throughout the activity or intermittently. 3-Partial/Moderate Assistance-helper does LESS THAN HALF the effort. [place] lift s, holds or supports trunk or limbs, but provides less than half the effort. 2-Substantial/Maximal Assistance-helper does MORE THAN HALF the effort. [place] lifts or holds trunk or limbs and provides more than half the effort. 9-Ogsbyzbkh-klytby does ALL the effort. Patient does none of the effort to complete the activity. Or, the assistance of 2 or more helpers is required for the patient to complete the activity. If activity was not attempted, code reason: 7-Patient Refused. 9-Not Applicable-not attempted and the patient did not perform the activity before the current illness, exacerbation or injury. 10-Not Attempted due to Environmental Limitations-(lack of equipment, weather restraints, etc.). 88-Not Attempted due to Medical Conditions or Safety Concerns. Sit to Lying (QC): 6 Lying to Sitting/Side of Bed(Q: 6 Sit to Stand (QC): 4 Toilet Transfer (QC): 4 Weight Bearing Full Weight Bearing Full Weight Bearing Gait Training Does the Patient Walk?: Yes Distance: 15' x2 Walk 10 feet (QC): 4 Gait Persons Needed: 1 Gait Assistive Device: FWW Treatments Pt TF from bed to EOB then stands. After letting body get acclimated to standing, amb to BR. CONFIGURATION MANAGEMENT SPECIALIST reviews written HEP for Supine & Seated EX. Pt returns to bed as Wound Care Nurse arrives. Pt lays L sidelying again. All needs met, call light in hand. Assessment Current Status: Good Progress Pt is a little groggy waking up and CONFIGURATION MANAGEMENT SPECIALIST is at CGA. PT Short Term Goals Short Term Goals Time Frame: Mar 07, 2020 Roll Left & Right: 6 Sit to lyin Lying to sitting on side of be: 6 Sit to stand: 4 Chair/ezq-tl-sptmz transfer: 4 Walk 10 feet: 4 Walk 50 feet with two turns: 4 Walk 150 feet: 4 PT Atm Manager Goals Atm Manager Goals PT Custodial Goals Time Frame: Mar 21, 2020 Roll Left & Right (QC): 6 Sit to Lying (QC): 6 Lying-Sitting on Side/Bed(QC): 6 Sit to Stand (QC): 4 (SBA) Chair/Tlj-ip-Fcjkv Xfer(QC): 4 (SBA) Toilet Transfer (QC): 4 (SBA) Car Transfer (QC): 4 (SBA) Does the Patient Walk: Yes Walk 10 feet (QC): 4 (SBA) Walk 50ft with 2 Turns (QC): 4 (SBA) Walk 150 ft (QC): 4 (SBA) Walking 10ft on Uneven Surface: 4 (SBA) 1 Step (curb) (QC): 4 (CGA) 4 Steps (QC): 4 (CGA) 12 Steps (QC): 88 Picking up an Object (QC): 88 Does the Pt use WC or Scooter?: No Wheel 50 feet with 2 turns (QC: 6 Wheel 150 feet: 6 PT Plan Problem List Problem List: Activity Tolerance, Functional Strength, Gait Treatment/Plan Treatment Plan: Continue Plan of Care Treatment Plan: Bed Mobility, Education, Functional Activity Cici, Functional Strength, Group Therapy, Gait, Safety, Therapeutic Exercise, Transfers Treatment Duration: Mar 21, 2020 Frequency: At least 5 of 7 days/Wk (IRF) Estimated Hrs Per Day: 1.5 hours per day Patient and/or Family Agrees t: Yes Safety Risks/Education Patient Education: Correct Positioning, Safety Issues Teaching Recipient: Patient Teaching Methods: Discussion Response to Teaching: Verbalize Understanding Time/GCodes Time In: 1330 Time Out: 1400 Total Billed Treatment Time: 15 Total Billed Treatment 1, FA (15m) & EX (15m) ERNESTINE MCGEE PTA Mar 07, 2020 14:09
[2020-03-07] MEDS: ENOXAPARIN 30 MG/0.3 ML (LOVENOX) SYR SC SCH (16:03)
[2020-03-07 17:19] VITALS: BP 137/64
[2020-03-07] MEDS: PREGABALIN 100 MG (LYRICA) CAPSULE PO SCH (21:04)
[2020-03-07] MEDS: traZODone 50 MG (DESYREL) TAB PO SCH (21:04)
[2020-03-07] MEDS: MONTELUKAST 10 MG (SINGULAIR) TAB PO SCH (21:04)
[2020-03-07] MEDS: CALCIUM CARBONATE 500 MG (TUMS) TAB.CHEW PO PRN (21:05)
[2020-03-08] MEDS: ACETAMINOPHEN 325 MG TABLET PO PRN (00:45)
[2020-03-08 06:00] VITALS: BP 117/75
[2020-03-08] MEDS: inSUlin ASPART (NovoLOG) 1 UNIT/0.01 ML (CHARGE PER UNIT) SC SCH ×4 (06:00→20:08)
[2020-03-08] MEDS: polyethylene glycoL POWDER 17 GM (MIRALAX) PACK PO SCH ×2 (07:48→19:44)
[2020-03-08] MEDS: LACTULOSE SYRUP 10GM/15ML (ENULOSE) 30ML UDC PO SCH ×2 (07:48→19:44)
[2020-03-08] MEDS: DOCUSATE SODIUM 100 MG (COLACE) CAP PO SCH ×2 (07:48→19:44)
[2020-03-08] MEDS: SENNA W/DOCUSATE (SENOKOT S) TABLET PO SCH ×2 (07:48→19:44)
[2020-03-08] MEDS: VITAMIN D3 25 MCG (1,000 UNITS) TABLET PO SCH (08:13)
[2020-03-08] MEDS: CLOPIDOGREL 75 MG (PLAVIX) TABLET PO SCH (08:13)
[2020-03-08] MEDS: PANTOPRAZOLE 40 MG (PROTONIX) TAB PO SCH (08:13)
[2020-03-08] MEDS: ASPIRIN E.C. 81 MG (ECOTRIN) TAB PO SCH (08:13)
[2020-03-08] MEDS: amLODIPine 2.5MG (NORVASC) TAB PO SCH (08:14)
[2020-03-08] MEDS: LINAGLIPTIN (TRADJENTA) 5 MG TABLET PO SCH (08:14)
[2020-03-08] MEDS: metFORMIN 500 MG (GLUCOPHAGE) TAB PO SCH ×2 (08:14→18:26)
[2020-03-08] MEDS: GABAPENTIN 600 MG (NEURONTIN) TAB PO PRN ×2 (08:14→22:44)
[2020-03-08] MEDS: DULoxetine 30 MG (CYMBALTA) CAP PO SCH ×2 (08:14)
--- NOTE | 2020-03-08 10:15 | Physical Therapy Daily Note ---
PT Daily Note-Current Subjective Pt asleep Supine in bed upon arrival. Pt agrees to PT. Pain Location: No Pain Reported Mental Status Patient Orientation: Person, Place, Situation Attachments: Other-See Comments (AFO for LLE) Transfers SCALE: Activities may be completed with or without assistive devices. 2-Mqkeppgkww-imugacp completes the activity by him/herself with no assistance from a helper. 5-Set-up or Clean-up Assistance-helper sets up or cleans up; patient completes activity. [place] assists only prior to or following the activity. 4-Supervision or Touching Assistance-helper provides verbal cues and/or touching/steadying and/or contact guard assistance as patient completes activity. Assistance may be provided throughout the activity or intermittently. 3-Partial/Moderate Assistance-helper does LESS THAN HALF the effort. [place] lifts, holds or supports trunk or limbs, but provides less than half the effort. 2-Substantial/Maximal Assistance-helper does MORE THAN HALF the effort. [place] lifts or holds trunk or limbs and provides more than half the effort. 1-Qfwpahpzn-dkmzjq does ALL the effort. Patient does none of the effort to complete the activity. Or, the assistance of 2 or more helpers is required for the patient to complete the activity. If activity was not attempted, code reason: 7-Patient Refused. 9-Not Applicable-not attempted and the patient did not perform the activity before the current illness, exacerbation or injury. 10-Not Attempted due to Environmental Limitations-(lack of equipment, weather restraints, etc.). 88-Not Attempted due to Medical Conditions or Safety Concerns. Lying to Sitting/Side of Bed(Q: 6 Sit to Stand (QC): 4 Toilet Transfer (QC): 4 Weight Bearing Full Weight Bearing Full Weight Bearing Gait Training Does the Patient Walk?: Yes Distance: 150' x2 Walk 10 feet (QC): 5 Walk 50 ft with 2 Turns(QC): 5 Walk 150 ft (QC): 5 Gait Persons Needed: 1 Gait Assistive Device: FWW Stair Training Stair Training: Handrails/: 2 handrails #of Steps: 4 1 Step (curb) (QC): 5 4 Steps (QC): 5 Stairs: Pattern: Step to Exercises Seated Therapy Exercises: Ankle pumps, Long arc quads, Hip flexion, Kicking activity Seated Reps: 15 Treatments Pt TF to EOB to don shocks, AFO & shoes. TF to standing and uses BR. Pt returns to EOB to eat breakfast as DUCT INSTALLER reviews Seated EX and discusses what can be worked on between today and DC. Pt amb. in hallway and completes 4 steps then takes RB. Pt returns to room and resting in bed at end of tx. All needs met, call light in hand. Assessment Current Status: Good Progress Pt is groggy this morning and reports not sleeping well last night. PT Short Term Goals Short Term Goals Time Frame: Mar 07, 2020 Roll Left & Right: 6 Sit to lyin Lying to sitting on side of be: 6 Sit to stand: 4 Chair/sli-rv-mqzlq transfer: 4 Walk 10 feet: 4 Walk 50 feet with two turns: 4 Walk 150 feet: 4 PT Hospital Television Rental Clerk Goals Hospital Television Rental Clerk Goals PT Hospital Television Rental Clerk Goals Time Frame: Mar 21, 2020 Roll Left & Right (QC): 6 Sit to Lying (QC): 6 Lying-Sitting on Side/Bed(QC): 6 Sit to Stand (QC): 4 (SBA) Chair/Fau-xx-Nvkak Xfer(QC): 4 (SBA) Toilet Transfer (QC): 4 (SBA) Car Transfer (QC): 4 (SBA) Does the Patient Walk: Yes Walk 10 feet (QC): 4 (SBA) Walk 50ft with 2 Turns (QC): 4 (SBA) Walk 150 ft (QC): 4 (SBA) Walking 10ft on Uneven Surface: 4 (SBA) 1 Step (curb) (QC): 4 (CGA) 4 Steps (QC): 4 (CGA) 12 Steps (QC): 88 Picking up an Object (QC): 88 Does the Pt use WC or Scooter?: No Wheel 50 feet with 2 turns (QC: 6 Wheel 150 feet: 6 PT Plan Problem List Problem List: Activity Tolerance, Functional Strength, Balance, Gait Treatment/Plan Treatment Plan: Continue Plan of Care Treatment Plan: Bed Mobility, Education, Functional Activity Cici, Functional Strength, Group Therapy, Gait, Safety, Therapeutic Exercise, Transfers Treatment Duration: Mar 21, 2020 Frequency: At least 5 of 7 days/Wk (IRF) Estimated Hrs Per Day: 1.5 hours per day Patient and/or Family Agrees t: Yes Safety Risks/Education Patient Education: Gait Training, Steps, Correct Positioning, Safety Issues Teaching Recipient: Patient Teaching Methods: Discussion Response to Teaching: Verbalize Understanding Time/GCodes Time In: 815 Time Out: 915 Total Billed Treatment Time: 60 Total Billed Treatment 1, FA x2 (30m), GT (15m) & EX (15m) ERNESTINE MCGEE DUCT INSTALLER Mar 08, 2020 10:15
[2020-03-08] MEDS: ADVAIR HFA 45/21 MCG INHALER 8 GM IH SCH ×2 (10:29→19:15)
--- NOTE | 2020-03-08 11:37 | Occupational Ther Daily Note ---
OT Current Status-Daily Note Subjective Pt agreeable to OT tx with focus on ADLs. Mental Status/Objective Patient Orientation: Person, Place, Time, Situation ADL-Treatment Therapy Code Descriptions/Definitions Functional [place] Measure: 0=Not Assessed/NA 4=Minimal Assistance 1=Total Assistance 5=Supervision or Setup 2=Maximal Assistance 6=Modified [place] 3=Moderate Assistance 7=Complete IndependenceSCALE: Activities may be completed with or without assistive devices. 0-Jyjcmtwani-yoybztd completes the activity by him/herself with no assistance from a helper. 5-Set-up or Clean-up Assistance-helper sets up or cleans up; patient completes activity. [place] assists only prior to or following the activity. 4-Supervision or Touching Assistance-helper provides verbal cues and/or touching/steadying and/or contact guard assistance as patient completes activity. Assistance may be provided throughout the activity or intermittently. 3-Partial/Moderate Assistance-helper does LESS THAN HALF the effort. [place] lifts, holds or supports trunk or limbs, but provides less than half the effort. 2-Substantial/Maximal Assistance-helper does MORE THAN HALF the effort. [place] lifts or holds trunk or limbs and provides more than half the effort. 9-Hfjuhcvxc-wulmnt does ALL the effort. Patient does none of the effort to complete the activity. Or, the assistance of 2 or more helpers is required for the patient to complete the activity. If activity was not attempted, code reason: 7-Patient Refused. 9-Not Applicable-not attempted and the patient did not perform the activity before the current illness, exacerbation or injury. 10-Not Attempted due to Environmental Limitations-(lack of equipment, weather restraints, etc.). 88-Not Attempted due to Medical Conditions or Safety Concerns. Shower/Bathe Self (QC): 6 (IND shower at GBS and shower bench) Upper Body Dressing (QC): 5 (set up assist) Lower Body Dressing (QC): 4 (SBA during stand, pt able to thread BLEs and complete pant hike) On/Off Footwear: 5 (set up, pt able to doff/don gripper socks, and doff/don regular socks, shoes and brace on LLE) Toileting Hygiene (QC): 4 (SBA during clothing management) Toilet Transfer (QC): 4 (SBA) Other Treatment Pt laying in bed, transferred supine to sit EOB, then used FWW to ambulate into bathroom and onto toilet, SBA. Pt completed toileting, then used FWW to ambulate to shower chair. Pt doffed clothes, completed shower, then donned clothes. Pt used FWW to ambulate to sink, standing at sink to brush her hair SBA, then sat EOB. Pt doffed gripper socks, then donned regular socks, shoes, and LLE brace. Pt used FWW to go to therapy gym. In order to increase fine motor coordination, pt placed x15 1" pegs into foam pegboard using RUE, then removed using LUE. Pt had some difficulty with task using LUE, she used R hand to assist as needed. Pt returned to her room using FWW, transferring to recliner. Post tx, pt seated in recliner, call light in reach and all needs met. Education OT Patient Education: Correct positioning, Modified ADL techniques, Progress shashi moreno Goal/Update tx plan, Purpose of tx/functional activities Teaching Recipient: Patient Teaching Methods: Discussion Response to Teaching: Verbalize Understanding OT Short Term Goals Short Term Goals Time Frame: Mar 13, 2020 Shower/bathe self: 5 Upper body dressin Lower body dressin Putting on/taking off footwear: 5 OT Correction Goals Administration Specialist Goals Time Frame: Mar 22, 2020 Eating (QC): 6 Oral Hygiene (QC): 6 Toileting Hygiene (QC): 6 Shower/Bathe Self (QC): 6 Upper Body Dressing (QC): 6 Lower Body Dressing (QC): 6 On/Off Footwear (QC): 6 Additional Goals: 1-Demonstrate ADL Tasks, 2-Verbalize Understanding, 3- ImproveStrength/Cici 1=Demonstrate adherence to instructed precautions during ADL tasks. 2=Patient will verbalize/demonstrate understanding of assistive devices/modifications for ADL. 3=Patient will improve strength/tolerance for activity to enable patient to perform ADL's. OT Education/Plan Problem List/Assessment Assessment: Decreased Activ Tolerance, Decreased UE Strength, Impaired Funct Balance, Impaired I ADL's, Impaired Self-Care Skills, Restricted Funct UE ROM Discharge Recommendations Plan/Recommendations: Continue POC Treatment Plan/Plan of Care Patient would benefit from OT for education, treatment and training to promote independence in ADL's, mobility, safety and/or upper extremity function for ADL's. Plan of Care: ADL Retraining, Functional Mobility, Group Exercise/Act as Ind, UE Funct Exercise/Act, UE Neuromus Re-Ed/Coord Treatment Duration: Mar 22, 2020 Frequency: At least 5 of 7 days/Wk (IRF) Estimated Hrs Per Day: 1.5 hours per day (1-1.5 hours per day) Agreement: Yes Rehab Potential: Fair Time/GCodes Start Time: 10:30 Stop Time: 11:30 Total Time Billed (hr/min): 60 Billed Treatment Time 1, ADL 3 (45'), FA (15') CHAGO HULL OT Mar 08, 2020 11:37
--- NOTE | 2020-03-08 13:53 | PM&R Progress Note ---
Subjective HPI/CC On Admission Date Seen by Provider: Mar 08, 2020 Time Seen by Provider: 14:30 Subjective/Events-last exam 03/08/20: Discharge as planned on Wednesday after family training Decreasing insulin due to hypoglycemic reactions Denies any significant new pain issues Sleep cycle is still dysfunctional 03/07/20: Leg cramps, gave Gabapentin only 300mg to decrease sedation Sugars are ok now DC Wednesday03/05/20: Increasing Lyrica to 100mg at night since she is not taking the Gabapentin Still not sleeping well No major issues Bowels are moving Drinks a lot of diet [facility] 03/04/20: Proton pump inhibitor ordered for GERD issues Didnt sleep well last night, I think that this is a chronic issue Lyrica 50 Mg given at night and Gabapentin switched to prn QID will help 03/03/20: No issues Sugars improved no hypoglycemia noted after adjusting insulin down Gabapentin will be changed to QID PRN the way she takes it at home and will start Lyrica tonight 50mg at night Ankle almost healed ulceration 03/02/20: Sugar too low this am Holding Levemir for now SSI A for now BM x 3 after constipation since 02/17 Lyrica may be initiated in place on Gabapentin as she has requested 03/01/20: Settling in well No pain reported Labs checked and all stable No BM since 02/17 so will initiate more aggressive regimen Left sided weakness is a challenge for the patient Conferred with creative art therapist of Systems Neurological: Weakness, Incoordination Objective Exam Vital Signs Vital Signs Date Time Temp Pulse Resp B/P (MAP) Pulse Ox O2 Delivery O2 Flow Rate FiO2 03/08/20 17:32 36.9 96 18 116/53 (74) 98 Room Air Capillary Refill : Less Than 3 Seconds General Appearance: No Apparent Distress, WD/WN, Chronically ill, Thin HEENT: PERRL/EOMI, Normal ENT Inspection, Pharynx Normal Neck: Full Range of Motion, Normal Inspection, Non Tender, Supple, Carotid Bruit Respiratory: Chest Non Tender, Lungs Clear, Normal Breath Sounds, No Accessory Muscle Use, No Respiratory Distress Cardiovascular: Regular Rate, Rhythm, No Edema, No Gallop, No JVD, No Murmur, Normal Peripheral Pulses Gastrointestinal: Normal Bowel Sounds, No Organomegaly, No Pulsatile Mass, Non Tender, Soft Back: Normal Inspection, No CVA Tenderness, No Vertebral Tenderness Extremity: Normal Capillary Refill, Normal Inspection, Normal Range of Motion, Non Tender, No Calf Tenderness, No Pedal Edema Neurologic/Psychiatric: Alert, Oriented x3, Normal Mood/Affect, tool inspector II-XII Norm as Tested, Abnormal Gait, Motor Weakness (left sided weakness 2/5 upper and lower) Skin: Normal Color, Warm/Dry, Cyanosis (chronic type of feet to mid-tibia) Lymphatic: No Adenopathy Results/Procedures Lab Patient resulted labs reviewed. FIM Transfers Therapy Code Descriptions/Definitions Functional [place] Measure: 0=Not Assessed/NA 4=Minimal Assistance 1=Total Assistance 5=Supervision or Setup 2=Maximal Assistance 6=Modified [place] 3=Moderate Assistance 7=Complete IndependenceSCALE: Activities may be completed with or without assistive devices. 3-Rvkwwyzqfh-xbvnlof completes the activity by him/herself with no assistance from a helper. 5-Set-up or Clean-up Assistance-helper sets up or cleans up; patient completes activity. [place] assists only prior to or following the activity. 4-Supervision or Touching Assistance-helper provides verbal cues and/or touching/steadying and/or contact guard assistance as patient completes activity. Assistance may be provided throughout the activity or intermittently. 3-Partial/Moderate Assistance-helper does LESS THAN HALF the effort. [place] lifts, holds or supports trunk or limbs, but provides less than half the effort. 2-Substantial/Maximal Assistance-helper does MORE THAN HALF the effort. [place] lifts or holds trunk or limbs and provides more than half the effort. 7-Seqlvddia-sqanun does ALL the effort. Patient does none of the effort to complete the activity. Or, the assistance of 2 or more helpers is required for the patient to complete the activity. If activity was not attempted, code reason: 7-Patient Refused. 9-Not Applicable-not attempted and the patient did not perform the activity before the current illness, exacerbation or injury. 10-Not Attempted due to Environmental Limitations-(lack of equipment, weather restraints, etc.). 88-Not Attempted due to Medical Conditions or Safety Concerns. Roll Left to Right (QC): 6 Sit to Lying (QC): 6 Sit to Stand (QC): 4 Chair/Uuz-il-Nuoys Xfer(QC): 6 Car Transfer (QC): 3 Gait Training Does the Patient Walk?: Yes Distance: 150' x2 Walk 10 feet (QC): 5 Walk 50 ft with 2 Turns(QC): 5 Walk 150 ft (QC): 5 Walking 10ft/uneven surface-QC: 3 Gait Persons Needed: 1 Gait Assistive Device: FWW Wheelchair Training Does the Pt Use a Wheelchair?: Yes Distance: 50' Wheel 50 ft with 2 turns (QC): 4 Wheel 150 ft (QC): 4 Type of Wheelchair: Manual Stair Training Stair Training: Handrails/: 2 handrails #of Steps: 4 1 Step (curb) (QC): 5 4 Steps (QC): 5 12 Steps (QC): 88 Stairs: Pattern: Step to Balance Picking up an Object (QC): 88 ADL-Treatment Eating (QC): 6 (Pt able to open packages and containers by self and uses regular utensils.) Oral Hygiene (QC): 4 Bathing Location: L Arm, R Arm, L Upper Leg, R Upper Leg, L Lower Leg (including foot), R Lower Leg (including foot), Chest, Abdomen, Buttocks, Perineal Area Shower/Bathe Self (QC): 6 (IND shower at GBS and shower bench) Upper Body Dressing (QC): 5 (set up assist) Lower Body Dressing (QC): 4 (SBA during stand, pt able to thread BLEs and complete pant hike) On/Off Footwear (QC): 5 (set up, pt able to doff/don gripper socks, and doff/don regular socks, shoes and brace on LLE) Toileting Hygiene (QC): 4 (SBA during clothing management) Toilet Transfer (QC): 4 (SBA) Assessment/Plan Assessment and Plan Assess & Plan/Chief Complaint Assessment: CVA with left sided weakness Smoker THC dependent Chronic pain DM insulin dependent HTN HLP PVD Right ankle ulcer Constipation Plan: Home meds Plavix, ASA, statin IRF protocol 03/01/20: Labs reviewed Pain control Aggressive therapy Wound care on ankle ulcer BM aggressive regimen 03/02/20: Hold Levemir Accucheck ac/hs SSI Lyrica may be an option 03/03/20: Change Gabapentin to QID prn and start Lyrica at night 50mg at her request Insulin adjusted down Doing well 03/04/20: PPI Monitor pain IRF protocol 03/05/20: Continue aggressive PT OT Increase Lyrica 03/06/20: Minimize insulin Lyrica 03/07/20: Gabapentin lower dose Monitor pain DC Wednesday03/08/20: Monitor sugar Pain management DC Wednesday (1) CVA (cerebral vascular accident) (2) Smoker (3) Methamphetamine use (4) Tetrahydrocannabinol (THC) dependence (5) Diabetes mellitus, insulin dependent (IDDM), uncontrolled (6) Hypertension (7) Hyperlipidemia (8) Frailty (9) PVD (peripheral vascular disease) (10) Ankle ulcer JESI MCDONALD DO Mar 08, 2020 13:53
--- NOTE | 2020-03-08 14:39 | Therapy Group Daily Note ---
Therapy Daily Group Note Patient Education Topic Other List Below (Memory & Memory Strategies) Exercises LE Seated Exercise, UE Exercise Session Ratio (pt:therapist): 4:1 Goal of Session: Education on ARU Expectations, Memory Strategies, UE/LE Strengthing Goal Met for this Session: Yes Pt Benefit of Group: Contributions to Others, F/U Use of Strategies @Home, Increased Functional Strength, Improved Cognition, Recognition of Peers, Socialization Other/Notes Pt ambulated to PT Group using FWW. Group consisted of Introductions (Name, Where from & Favorite Winter or Snow time Activity), Socialization, Seated UE & LE Exercise as well as ARU Expectations and Memory Strategy with Activity/Game. Pt is able to actively participate in both Exercises and give personal examples of Memory Strategies that have worked for her. Pt is able to match 4/4 in Memory game. Pt returns to room to rest in bed at end of Group. All needs met, call light in hand. Start Time: 13:00 Stop Time: 14:00 Total Billed Treatment Time: 60 Total Billed Treatment 1, GRP ERNESTINE MCGEE CONE BAKER MACHINE Mar 08, 2020 14:39
[2020-03-08] MEDS: ENOXAPARIN 30 MG/0.3 ML (LOVENOX) SYR SC SCH (15:54)
[2020-03-08 17:32] VITALS: BP 116/53
[2020-03-08] MEDS: traZODone 50 MG (DESYREL) TAB PO SCH (20:07)
[2020-03-08] MEDS: MONTELUKAST 10 MG (SINGULAIR) TAB PO SCH (20:07)
[2020-03-08] MEDS: PREGABALIN 100 MG (LYRICA) CAPSULE PO SCH (20:07)
[2020-03-09 05:31] VITALS: BP 128/62
[2020-03-09] MEDS: inSUlin ASPART (NovoLOG) 1 UNIT/0.01 ML (CHARGE PER UNIT) SC SCH ×4 (05:31→21:23)
--- NOTE | 2020-03-09 07:29 | PM&R Progress Note ---
Subjective HPI/CC On Admission Date Seen by Provider: Mar 09, 2020 Time Seen by Provider: 13:00 Subjective/Events-last exam 03/09/20: SSI given for elevated sugar before lunch Kaden DM [place] Pharmacy is the [facility] 03/08/20: Discharge as planned on Wednesday after family training Decreasing insulin due to hypoglycemic reactions Denies any significant new pain issues Sleep cycle is still dysfunctional 03/07/20: Leg cramps, gave Gabapentin only 300mg to decrease sedation Sugars are ok now [place] Wednesday03/05/20: Increasing Lyrica to 100mg at night since she is not taking the Gabapentin Still not sleeping well No major issues Bowels are moving Drinks a lot of diet [facility] 03/04/20: Proton pump inhibitor ordered for GERD issues Didnt sleep well last night, I think that this is a chronic issue Lyrica 50 Mg given at night and Gabapentin switched to prn QID will help 03/03/20: No issues Sugars improved no hypoglycemia noted after adjusting insulin down Gabapentin will be changed to QID PRN the way she takes it at home and will start Lyrica tonight 50mg at night Ankle almost healed ulceration 03/02/20: Sugar too low this am Holding Levemir for now SSI A for now BM x 3 after constipation since 02/17 Lyrica may be initiated in place on Gabapentin as she has requested 03/01/20: Settling in well No pain reported Labs checked and all stable No BM since 02/17 so will initiate more aggressive regimen Left sided weakness is a challenge for the patient Conferred with unemployment benefits claims taker of Systems General: Fatigue, Malaise Neurological: Weakness, Incoordination Objective Exam Vital Signs Vital Signs Date Time Temp Pulse Resp B/P (MAP) Pulse Ox O2 Delivery O2 Flow Rate FiO2 03/10/20 05:06 36.7 94 16 120/57 (78) 97 Room Air Capillary Refill : Less Than 3 Seconds General Appearance: No Apparent Distress, WD/WN, Chronically ill, Thin HEENT: PERRL/EOMI, Normal ENT Inspection, Pharynx Normal Neck: Full Range of Motion, Normal Inspection, Non Tender, Supple, Carotid Bruit Respiratory: Chest Non Tender, Lungs Clear, Normal Breath Sounds, No Accessory Muscle Use, No Respiratory Distress Cardiovascular: Regular Rate, Rhythm, No Edema, No Gallop, No JVD, No Murmur, Normal Peripheral Pulses Gastrointestinal: Normal Bowel Sounds, No Organomegaly, No Pulsatile Mass, Non Tender, Soft Back: Normal Inspection, No CVA Tenderness, No Vertebral Tenderness Extremity: Normal Capillary Refill, Normal Inspection, Normal Range of Motion, Non Tender, No Calf Tenderness, No Pedal Edema Neurologic/Psychiatric: Alert, Oriented x3, Normal Mood/Affect, internet researcher II-XII Norm as Tested, Abnormal Gait, Motor Weakness (left sided weakness 2/5 upper and lower) Skin: Normal Color, Warm/Dry, Cyanosis (chronic type of feet to mid-tibia) Lymphatic: No Adenopathy Results/Procedures Lab Patient resulted labs reviewed. FIM Transfers Therapy Code Descriptions/Definitions Functional [place] Measure: 0=Not Assessed/NA 4=Minimal Assistance 1=Total Assistance 5=Supervision or Setup 2=Maximal Assistance 6=Modified [place] 3=Moderate Assistance 7=Complete IndependenceSCALE: Activities may be completed with or without assistive devices. 1-Bbxwqpbrzi-cehjbth completes the activity by him/herself with no assistance from a helper. 5-Set-up or Clean-up Assistance-helper sets up or cleans up; patient completes activity. [place] assists only prior to or following the activity. 4-Supervision or Touching Assistance-helper provides verbal cues and/or touching/steadying and/or contact guard assistance as patient completes activity. Assistance may be provided throughout the activity or intermittently. 3-Partial/Moderate Assistance-helper does LESS THAN HALF the effort. [place] lifts, holds or supports trunk or limbs, but provides less than half the effort. 2-Substantial/Maximal Assistance-helper does MORE THAN HALF the effort. [place] lifts or holds trunk or limbs and provides more than half the effort. 0-Hmtnfpzmj-dnaces does ALL the effort. Patient does none of the effort to c omplete the activity. Or, the assistance of 2 or more helpers is required for the patient to complete the activity. If activity was not attempted, code reason: 7-Patient Refused. 9-Not Applicable-not attempted and the patient did not perform the activity before the current illness, exacerbation or injury. 10-Not Attempted due to Environmental Limitations-(lack of equipment, weather restraints, etc.). 88-Not Attempted due to Medical Conditions or Safety Concerns. Roll Left to Right (QC): 6 Sit to Lying (QC): 6 Sit to Stand (QC): 4 Chair/Bhf-eh-Iwzzk Xfer(QC): 6 Car Transfer (QC): 3 Gait Training Does the Patient Walk?: Yes Distance: 150' x2 Walk 10 feet (QC): 5 Walk 50 ft with 2 Turns(QC): 5 Walk 150 ft (QC): 5 Walking 10ft/uneven surface-QC: 3 Gait Persons Needed: 1 Gait Assistive Device: FWW Wheelchair Training Does the Pt Use a Wheelchair?: Yes Distance: 50' Wheel 50 ft with 2 turns (QC): 4 Wheel 150 ft (QC): 4 Type of Wheelchair: Manual Stair Training Stair Training: Handrails/: 2 handrails #of Steps: 4 1 Step (curb) (QC): 5 4 Steps (QC): 5 12 Steps (QC): 88 Stairs: Pattern: Step to Balance Picking up an Object (QC): 88 ADL-Treatment Eating (QC): 6 (Pt able to open packages and containers by self and uses regular utensils.) Oral Hygiene (QC): 4 Bathing Location: L Arm, R Arm, L Upper Leg, R Upper Leg, L Lower Leg (including foot), R Lower Leg (including foot), Chest, Abdomen, Buttocks, Perineal Area Shower/Bathe Self (QC): 6 (IND shower at GBS and shower bench) Upper Body Dressing (QC): 5 (set up assist) Lower Body Dressing (QC): 4 (SBA during stand, pt able to thread BLEs and complete pant hike) On/Off Footwear (QC): 5 (set up, pt able to doff/don gripper socks, and doff/don regular socks, shoes and brace on LLE) Toileting Hygiene (QC): 4 (SBA during clothing management) Toilet Transfer (QC): 4 (SBA) Assessment/Plan Assessment and Plan Assess & Plan/Chief Complaint Assessment: CVA with left sided weakness Smoker THC dependent Chronic pain DM insulin dependent HTN HLP PVD Right ankle ulcer Constipation Plan: Home meds Plavix, ASA, statin IRF protocol 03/01/20: Labs reviewed Pain control Aggressive therapy Wound care on ankle ulcer BM aggressive regimen 03/02/20: Hold Levemir Accucheck ac/hs SSI Lyrica may be an option 03/03/20: Change Gabapentin to QID prn and start Lyrica at night 50mg at her request Insulin adjusted down Doing well 03/04/20: PPI Monitor pain IRF protocol 03/05/20: Continue aggressive PT OT Increase Lyrica 03/06/20: Minimize insulin Lyrica 03/07/20: Gabapentin lower dose Monitor pain DC Wednesday03/08/20: Monitor sugar Pain management DC Wednesday03/09/20: Monitor sugar Monitor for new issues Chronic neuropathy will need PCP management (1) CVA (cerebral vascular accident) (2) Smoker (3) Methamphetamine use (4) Tetrahydrocannabinol (THC) dependence (5) Diabetes mellitus, insulin dependent (IDDM), uncontrolled (6) Hypertension (7) Hyperlipidemia (8) Frailty (9) PVD (peripheral vascular disease) (10) Ankle ulcer JESI MCDONALD DO Mar 09, 2020 07:29
[2020-03-09] MEDS: ADVAIR HFA 45/21 MCG INHALER 8 GM IH SCH ×2 (07:30→19:10)
[2020-03-09 08:23] VITALS: BP 104/50
[2020-03-09] MEDS: VITAMIN D3 25 MCG (1,000 UNITS) TABLET PO SCH ×2 (08:25→08:35)
[2020-03-09] MEDS: CLOPIDOGREL 75 MG (PLAVIX) TABLET PO SCH (08:25)
[2020-03-09] MEDS: PANTOPRAZOLE 40 MG (PROTONIX) TAB PO SCH (08:25)
[2020-03-09] MEDS: metFORMIN 500 MG (GLUCOPHAGE) TAB PO SCH ×2 (08:25→17:43)
[2020-03-09] MEDS: ASPIRIN E.C. 81 MG (ECOTRIN) TAB PO SCH (08:26)
[2020-03-09] MEDS: LINAGLIPTIN (TRADJENTA) 5 MG TABLET PO SCH (08:26)
[2020-03-09] MEDS: DULoxetine 30 MG (CYMBALTA) CAP PO SCH ×2 (08:29)
[2020-03-09] MEDS: DOCUSATE SODIUM 100 MG (COLACE) CAP PO SCH ×2 (09:35→20:09)
[2020-03-09] MEDS: LACTULOSE SYRUP 10GM/15ML (ENULOSE) 30ML UDC PO SCH ×2 (09:36→20:09)
[2020-03-09] MEDS: amLODIPine 2.5MG (NORVASC) TAB PO SCH (09:37)
[2020-03-09] MEDS: polyethylene glycoL POWDER 17 GM (MIRALAX) PACK PO SCH ×2 (09:37→20:09)
[2020-03-09] MEDS: SENNA W/DOCUSATE (SENOKOT S) TABLET PO SCH ×2 (09:38→20:09)
--- NOTE | 2020-03-09 10:00 | Physical Therapy Daily Note ---
PT Daily Note-Current Subjective Pt asleep in bed upon arrival. Nurse arrives as PT arrives. Pt agrees to PT but reports again not sleeping well. Pain Location: No Pain Reported Mental Status Patient Orientation: Person, Place, Situation Transfers SCALE: Activities may be completed with or without assistive devices. 3-Bxwvnnbcai-znwwhas completes the activity by him/herself with no assistance from a helper. 5-Set-up or Clean-up Assistance-helper sets up or cleans up; patient completes activity. [place] assists only prior to or following the activity. 4-Supervision or Touching Assistance-helper provides verbal cues and/or touching/steadying and/or contact guard assistance as patient completes activity. Assistance may be provided throughout the activity or intermittently. 3-Partial/Moderate Assistance-helper does LESS THAN HALF the effort. [place] lift s, holds or supports trunk or limbs, but provides less than half the effort. 2-Substantial/Maximal Assistance-helper does MORE THAN HALF the effort. [place] lifts or holds trunk or limbs and provides more than half the effort. 8-Isnxcjryo-rrpreb does ALL the effort. Patient does none of the effort to complete the activity. Or, the assistance of 2 or more helpers is required for the patient to complete the activity. If activity was not attempted, code reason: 7-Patient Refused. 9-Not Applicable-not attempted and the patient did not perform the activity before the current illness, exacerbation or injury. 10-Not Attempted due to Environmental Limitations-(lack of equipment, weather restraints, etc.). 88-Not Attempted due to Medical Conditions or Safety Concerns. Roll Left & Right (QC): 6 Sit to Lying (QC): 6 Lying to Sitting/Side of Bed(Q: 6 Sit to Stand (QC): 5 Toilet Transfer (QC): 5 Weight Bearing Full Weight Bearing Full Weight Bearing Gait Training Does the Patient Walk?: Yes Distance: 150' Walk 10 feet (QC): 5 Walk 50 ft with 2 Turns(QC): 5 Walk 150 ft (QC): 5 Gait Persons Needed: 1 Gait Assistive Device: FWW Treatments Pt TF to EOB then standing. Pt uses BR then returns to EOB to take morning meds. Pt stands and amb. in hallway to Laundry. Pt is able to assist before returning to room to rest. All needs met, call light in hand. Assessment Current Status: Good Progress Pt appears a little drowsy but continues to gain strength and independence with transfers and mobility. PT Short Term Goals Short Term Goals Time Frame: Mar 07, 2020 Roll Left & Right: 6 Sit to lyin Lying to sitting on side of be: 6 Sit to stand: 4 Chair/rln-vz-xfdpj transfer: 4 Walk 10 feet: 4 Walk 50 feet with two turns: 4 Walk 150 feet: 4 PT [employer] Goals [employer] Goals PT Senior Care Goals Time Frame: Mar 21, 2020 Roll Left & Right (QC): 6 Sit to Lying (QC): 6 Lying-Sitting on Side/Bed(QC): 6 Sit to Stand (QC): 4 (SBA) Chair/Yuu-yh-Rdxdr Xfer(QC): 4 (SBA) Toilet Transfer (QC): 4 (SBA) Car Transfer (QC): 4 (SBA) Does the Patient Walk: Yes Walk 10 feet (QC): 4 (SBA) Walk 50ft with 2 Turns (QC): 4 (SBA) Walk 150 ft (QC): 4 (SBA) Walking 10ft on Uneven Surface: 4 (SBA) 1 Step (curb) (QC): 4 (CGA) 4 Steps (QC): 4 (CGA) 12 Steps (QC): 88 Picking up an Object (QC): 88 Does the Pt use WC or Scooter?: No Wheel 50 feet with 2 turns (QC: 6 Wheel 150 feet: 6 PT Plan Problem List Problem List: Activity Tolerance, Gait Treatment/Plan Treatment Plan: Continue Plan of Care Treatment Plan: Bed Mobility, Education, Functional Activity Cici, Functional Strength, Group Therapy, Gait, Safety, Therapeutic Exercise, Transfers Treatment Duration: Mar 21, 2020 Frequency: At least 5 of 7 days/Wk (IRF) Estimated Hrs Per Day: 1.5 hours per day Patient and/or Family Agrees t: Yes Safety Risks/Education Patient Education: Gait Training, Transfer Techniques, Correct Positioning, Safety Issues Teaching Recipient: Patient Teaching Methods: Discussion Response to Teaching: Verbalize Understanding Time/GCodes Time In: 825 Time Out: 850 Total Billed Treatment Time: 25 Total Billed Treatment 1, FA (15m) & GT (10m) 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
[2020-03-09] MEDS: ENOXAPARIN 30 MG/0.3 ML (LOVENOX) SYR SC SCH (15:07)
[2020-03-09 17:36] VITALS: BP 111/55
[2020-03-09] MEDS: traZODone 50 MG (DESYREL) TAB PO SCH (20:09)
[2020-03-09] MEDS: MONTELUKAST 10 MG (SINGULAIR) TAB PO SCH (20:09)
[2020-03-09] MEDS: PREGABALIN 100 MG (LYRICA) CAPSULE PO SCH (20:09)
[2020-03-09] MEDS: CALCIUM CARBONATE 500 MG (TUMS) TAB.CHEW PO PRN (20:16)
[2020-03-09] MEDS: SUCRALFATE 1 GM (CARAFATE) TAB PO PRN (23:35)
[2020-03-10] MEDS: ALPRAZolam 0.25 MG (XANAX) TAB PO PRN ×2 (01:42→20:26)
[2020-03-10 05:06] VITALS: BP 120/57
[2020-03-10] MEDS: inSUlin ASPART (NovoLOG) 1 UNIT/0.01 ML (CHARGE PER UNIT) SC SCH ×4 (06:00→20:24)
[2020-03-10 08:15] VITALS: BP 110/55
[2020-03-10] MEDS: ASPIRIN E.C. 81 MG (ECOTRIN) TAB PO SCH (08:19)
[2020-03-10] MEDS: GABAPENTIN 600 MG (NEURONTIN) TAB PO PRN (08:19)
[2020-03-10] MEDS: metFORMIN 500 MG (GLUCOPHAGE) TAB PO SCH ×2 (08:19→17:47)
[2020-03-10] MEDS: CLOPIDOGREL 75 MG (PLAVIX) TABLET PO SCH (08:19)
[2020-03-10] MEDS: PANTOPRAZOLE 40 MG (PROTONIX) TAB PO SCH (08:19)
[2020-03-10] MEDS: LINAGLIPTIN (TRADJENTA) 5 MG TABLET PO SCH (08:19)
[2020-03-10] MEDS: DULoxetine 30 MG (CYMBALTA) CAP PO SCH (08:20)
[2020-03-10] MEDS: VITAMIN D3 25 MCG (1,000 UNITS) TABLET PO SCH (08:29)
[2020-03-10] MEDS: DOCUSATE SODIUM 100 MG (COLACE) CAP PO SCH ×2 (08:37→20:24)
[2020-03-10] MEDS: LACTULOSE SYRUP 10GM/15ML (ENULOSE) 30ML UDC PO SCH ×2 (08:37→20:25)
[2020-03-10] MEDS: polyethylene glycoL POWDER 17 GM (MIRALAX) PACK PO SCH ×2 (08:38→20:25)
[2020-03-10] MEDS: amLODIPine 2.5MG (NORVASC) TAB PO SCH (08:39)
[2020-03-10] MEDS: SENNA W/DOCUSATE (SENOKOT S) TABLET PO SCH ×2 (08:39→20:25)
--- NOTE | 2020-03-10 14:07 | PM&R Progress Note ---
Subjective HPI/CC On Admission Date Seen by Provider: Mar 10, 2020 Time Seen by Provider: 14:00 Subjective/Events-last exam 03/10/20: Monitor sugar DC tomorrow after family education Check labs in am 03/09/20: SSI given for elevated sugar before lunch Brittle DM DC Wednesday Pharmacy is the [facility] 03/08/20: Discharge as planned on Wednesday after family training Decreasing insulin due to hypoglycemic reactions Denies any significant new pain issues Sleep cycle is still dysfunctional 03/07/20: Leg cramps, gave Gabapentin only 300mg to decrease sedation Sugars are ok now DC Wednesday03/05/20: Increasing Lyrica to 100mg at night since she is not taking the Gabapentin Still not sleeping well No major issues Bowels are moving Drinks a lot of diet [place] 03/04/20: Proton pump inhibitor ordered for GERD issues Didnt sleep well last night, I think that this is a chronic issue Lyrica 50 Mg given at night and Gabapentin switched to prn QID will help 03/03/20: No issues Sugars improved no hypoglycemia noted after adjusting insulin down Gabapentin will be changed to QID PRN the way she takes it at home and will start Lyrica tonight 50mg at night Ankle almost healed ulceration 03/02/20: Sugar too low this am Holding Levemir for now SSI A for now BM x 3 after constipation since 02/17 Lyrica may be initiated in place on Gabapentin as she has requested 03/01/20: Settling in well No pain reported Labs checked and all stable No BM since 02/17 so will initiate more aggressive regimen Left sided weakness is a challenge for the patient Conferred with wrapper caser of Systems General: Fatigue, Malaise Objective Exam Vital Signs Vital Signs Date Time Temp Pulse Resp B/P (MAP) Pulse Ox O2 Delivery O2 Flow Rate FiO2 03/10/20 16:44 37.3 99 18 129/60 (83) 97 Room Air Capillary Refill : Less Than 3 Seconds General Appearance: No Apparent Distress, WD/WN, Chronically ill, Thin HEENT: PERRL/EOMI, Normal ENT Inspection, Pharynx Normal Neck: Full Range of Motion, Normal Inspection, Non Tender, Supple, Carotid Bruit Respiratory: Chest Non Tender, Lungs Clear, Normal Breath Sounds, No Accessory Muscle Use, No Respiratory Distress Cardiovascular: Regular Rate, Rhythm, No Edema, No Gallop, No JVD, No Murmur, Normal Peripheral Pulses Gastrointestinal: Normal Bowel Sounds, No Organomegaly, No Pulsatile Mass, Non Tender, Soft Back: Normal Inspection, No CVA Tenderness, No Vertebral Tenderness Extremity: Normal Capillary Refill, Normal Inspection, Normal Range of Motion, Non Tender, No Calf Tenderness, No Pedal Edema Neurologic/Psychiatric: Alert, Oriented x3, Normal Mood/Affect, direct marketing executive II-XII Norm as Tested, Abnormal Gait, Motor Weakness (left sided weakness 2/5 upper and lower) Skin: Normal Color, Warm/Dry, Cyanosis (chronic type of feet to mid-tibia) Lymphatic: No Adenopathy Results/Procedures Lab Patient resulted labs reviewed. FIM Transfers Therapy Code Descriptions/Definitions Functional [place] Measure: 0=Not Assessed/NA 4=Minimal Assistance 1=Total Assistance 5=Supervision or Setup 2=Maximal Assistance 6=Modified [place] 3=Moderate Assistance 7=Complete IndependenceSCALE: Activities may be completed with or without assistive devices. 8-Jvjmyghbpq-mljggkx completes the activity by him/herself with no assistance from a helper. 5-Set-up or Clean-up Assistance-helper sets up or cleans up; patient completes activity. [place] assists only prior to or following the activity. 4-Supervision or Touching Assistance-helper provides verbal cues and/or touching/steadying and/or contact guard assistance as patient completes activity. Assistance may be provided throughout the activity or intermittently. 3-Partial/Moderate Assistance-helper does LESS THAN HALF the effort. [place] lifts, holds or supports trunk or limbs, but provides less than half the effort. 2-Substantial/Maximal Assistance-helper does MORE THAN HALF the effort. [place] lifts or holds trunk or limbs and provides more than half the effort. 3-Ctvyfzozm-imldig does ALL the effort. Patient does none of the effort to complete the activity. Or, the assistance of 2 or more helpers is required for the patient to complete the activity. If activity was not attempted, code reason: 7-Patient Refused. 9-Not Applicable-not attempted and the patient did not perform the activity before the current illness, exacerbation or injury. 10-Not Attempted due to Environmental Limitations-(lack of equipment, weather restraints, etc.). 88-Not Attempted due to Medical Conditions or Safety Concerns. Roll Left to Right (QC): 6 Sit to Lying (QC): 6 Sit to Stand (QC): 5 Chair/Oyq-mu-Efhen Xfer(QC): 6 Car Transfer (QC): 3 Gait Training Does the Patient Walk?: Yes Distance: 150' Walk 10 feet (QC): 5 Walk 50 ft with 2 Turns(QC): 5 Walk 150 ft (QC): 5 Walking 10ft/uneven surface-QC: 3 Gait Persons Needed: 1 Gait Assistive Device: FWW Wheelchair Training Does the Pt Use a Wheelchair?: Yes Distance: 50' Wheel 50 ft with 2 turns (QC): 4 Wheel 150 ft (QC): 4 Type of Wheelchair: Manual Stair Training Stair Training: Handrails/: 2 handrails #of Steps: 4 1 Step (curb) (QC): 5 4 Steps (QC): 5 12 Steps (QC): 88 Stairs: Pattern: Step to Balance Picking up an Object (QC): 88 ADL-Treatment Eating (QC): 6 (Pt able to open packages and containers by self and uses regular utensils.) Oral Hygiene (QC): 4 Bathing Location: L Arm, R Arm, L Upper Leg, R Upper Leg, L Lower Leg (including foot), R Lower Leg (including foot), Chest, Abdomen, Buttocks, Perineal Area Shower/Bathe Self (QC): 6 (IND shower at GBS and shower bench) Upper Body Dressing (QC): 5 (set up assist) Lower Body Dressing (QC): 4 (SBA during stand, pt able to thread BLEs and complete pant hike) On/Off Footwear (QC): 5 (set up, pt able to doff/don gripper socks, and doff/don regular socks, shoes and brace on LLE) Toileting Hygiene (QC): 4 (SBA during clothing management) Toilet Transfer (QC): 4 (SBA) Assessment/Plan Assessment and Plan Assess & Plan/Chief Complaint Assessment: CVA with left sided weakness Smoker THC dependent Chronic pain DM insulin dependent HTN HLP PVD Right ankle ulcer Constipation Plan: Home meds Plavix, ASA, statin IRF protocol 03/01/20: Labs reviewed Pain control Aggressive therapy Wound care on ankle ulcer BM aggressive regimen 03/02/20: Hold Levemir Accucheck ac/hs SSI Lyrica may be an option 03/03/20: Change Gabapentin to QID prn and start Lyrica at night 50mg at her request Insulin adjusted down Doing well 03/04/20: PPI Monitor pain IRF protocol 03/05/20: Continue aggressive PT OT Increase Lyrica 03/06/20: Minimize insulin Lyrica 03/07/20: Gabapentin lower dose Monitor pain DC Wednesday03/08/20: Monitor sugar Pain management DC Wednesday03/09/20: Monitor sugar Monitor for new issues Chronic neuropathy will need PCP management 03/10/20: Body odor noted even after shower Cyanosis and poor vascular supply to legs and feet DC tomorrow (1) CVA (cerebral vascular accident) (2) Smoker (3) Methamphetamine use (4) Tetrahydrocannabinol (THC) dependence (5) Diabetes mellitus, insulin dependent (IDDM), uncontrolled (6) Hypertension (7) Hyperlipidemia (8) Frailty (9) PVD (peripheral vascular disease) (10) Ankle ulcer JESI MCDONALD DO Mar 10, 2020 14:07
[2020-03-10] MEDS: ENOXAPARIN 30 MG/0.3 ML (LOVENOX) SYR SC SCH (15:58)
[2020-03-10 16:44] VITALS: BP 129/60
[2020-03-10] MEDS: PREGABALIN 100 MG (LYRICA) CAPSULE PO SCH (20:23)
[2020-03-10] MEDS: traZODone 50 MG (DESYREL) TAB PO SCH (20:23)
[2020-03-10] MEDS: MONTELUKAST 10 MG (SINGULAIR) TAB PO SCH (20:24)
[2020-03-10] MEDS ORDERED: PANT40TA52 PO (20:52)
[2020-03-10] MEDS ORDERED: PREG100C PO (20:52)
[2020-03-10] MEDS ORDERED: INSU100V5 SQ (20:52)
[2020-03-10] MEDS ORDERED: GBPN600T PO (20:52)
[2020-03-10] MEDS ORDERED: SUCR1TAB PO (20:52)
--- NOTE | 2020-03-10 20:54 | D/C HH Face to Face Order ---
D/C Face to Face Orders Reconcile Patient Problems Problems Reviewed?: Yes Instructions for Patient Home Health Patient Instructions/FollowUp: PCP at [facility] in 1 week Physician to follow Patient: PCP Discharge Diet for Home: ADA Diet Patient Problems: CVA DM Severe PVD Neuropathy Patient Data-Allergies,Ht & Wt Patient Allergies: Coded Allergies: latex (Verified Allergy, Unknown, Hives, 02/29/20) simvastatin (Verified Allergy, Unknown, 02/29/20) Home Health Need/Face to Face Date of Face to Face: Mar 10, 2020 Clinical Findings: Generalized weakness and fatigue, Instability, Muscle weakness, Unsteady gait I have seen Pt sxpv-oa-[id number]: Yes Discharged To: Home Diagnosis/Conditions: CVA DM Severe PVD Neuropathy Patient is Homebound due to: [place] fall risk due to instabilty, Muscle weakness, Pain w/ambulation Homebound Status Due to the above stated illness, injury or surgical procedure (medical condition or diagnosis) and associated clinical findings, the patient is homebound because of his/her inability to leave home except with aid of a supportive device and/or person AND leaving the home requires a considerable and taxing effort or is medically contraindicated. Pt req the following assistanc: [facility] Home Health Nursing Orders Home Health Services Order: Nursing Services, Business Technology Analyst-Evaluate & Treat, Physical Therapy-Evaluate & Treat Certify Stmt I certify that this patient is under my care and that I, a nurse practitioner or a physician; a assistant men's soccer coach working with me, had a face to face encounter that - meets the physician face to face encounter requirements with this patient as dated. JESI MCDONALD DO Mar 10, 2020 20:54
[2020-03-10] MEDS: ADVAIR HFA 45/21 MCG INHALER 8 GM IH SCH (21:57)
[2020-03-11] MEDS: GABAPENTIN 600 MG (NEURONTIN) TAB PO PRN (01:00)
[2020-03-11 05:09] VITALS: BP 141/63
[2020-03-11] MEDS: inSUlin ASPART (NovoLOG) 1 UNIT/0.01 ML (CHARGE PER UNIT) SC SCH (06:47)
[2020-03-11] MEDS: ADVAIR HFA 45/21 MCG INHALER 8 GM IH SCH (07:29)
[2020-03-11 07:31] LABS: BASOPHILS # (AUTO) 0.1 10^3/uL (0.0-0.1); BASOPHILS % (AUTO) 1 % (0-10); EOSINOPHILS # (AUTO) 0.4 10^3/uL (0.0-0.3); EOSINOPHILS % (AUTO) 4 % (0-10); HEMATOCRIT 42 % (35-52); HEMOGLOBIN 13.7 g/dL (11.5-16.0); LYMPHOCYTES # (AUTO) 3.9 10^3/uL (1.0-4.0); LYMPHOCYTES % (AUTO) 35 % (12-44); MEAN CORPUSCULAR HEMOGLOBIN 29 pg (25-34); MEAN CORPUSCULAR HGB CONC 33 g/dL (32-36); MEAN CORPUSCULAR VOLUME 89 fL (80-99); MEAN PLATELET VOLUME 10.9 fL (9.0-12.2); MONOCYTES # (AUTO) 0.6 10^3/uL (0.0-1.0); MONOCYTES % (AUTO) 6 % (0-12); NEUTROPHILS # (AUTO) 6.1 10^3/uL (1.8-7.8); NEUTROPHILS % (AUTO) 54 % (42-75); PLATELET COUNT 273 10^3/uL (130-400); WHITE BLOOD COUNT 11.2 10^3/uL (4.3-11.0)
[2020-03-11 07:48] LABS: CHLORIDE 99 MMOL/L (98-107); POTASSIUM 3.7 MMOL/L (3.6-5.0); SODIUM 141 MMOL/L (135-145)
[2020-03-11 07:49] LABS: CALCIUM 9.2 MG/DL (8.5-10.1)
[2020-03-11 07:51] LABS: GLUCOSE 155 MG/DL (70-105); TOTAL PROTEIN 6.9 GM/DL (6.4-8.2)
[2020-03-11 07:52] LABS: CARBON DIOXIDE 31 MMOL/L (21-32)
[2020-03-11 07:53] LABS: BILIRUBIN,TOTAL 0.2 MG/DL (0.1-1.0)
[2020-03-11 07:54] LABS: ALKALINE PHOSPHATASE 79 U/L (40-136); CREATININE SERUM 0.58 MG/DL (0.60-1.30); GFR ESTIMATED > 60
[2020-03-11 07:55] LABS: BUN/CREATININE RATIO 38
[2020-03-11 07:57] LABS: ALANINE AMINOTRANSFERASE 17 U/L (0-55)
[2020-03-11] MEDS: CLOPIDOGREL 75 MG (PLAVIX) TABLET PO SCH (08:12)
[2020-03-11] MEDS: LINAGLIPTIN (TRADJENTA) 5 MG TABLET PO SCH (08:12)
[2020-03-11] MEDS: PANTOPRAZOLE 40 MG (PROTONIX) TAB PO SCH (08:12)
[2020-03-11] MEDS: amLODIPine 2.5MG (NORVASC) TAB PO SCH (08:12)
[2020-03-11] MEDS: VITAMIN D3 25 MCG (1,000 UNITS) TABLET PO SCH (08:13)
[2020-03-11] MEDS: DULoxetine 30 MG (CYMBALTA) CAP PO SCH (08:13)
[2020-03-11] MEDS: metFORMIN 500 MG (GLUCOPHAGE) TAB PO SCH (08:13)
[2020-03-11] MEDS: ASPIRIN E.C. 81 MG (ECOTRIN) TAB PO SCH (08:13)
[2020-03-11] MEDS: polyethylene glycoL POWDER 17 GM (MIRALAX) PACK PO SCH (08:14)
[2020-03-11] MEDS: SENNA W/DOCUSATE (SENOKOT S) TABLET PO SCH (08:14)
[2020-03-11] MEDS: DOCUSATE SODIUM 100 MG (COLACE) CAP PO SCH (08:14)
[2020-03-11] MEDS: LACTULOSE SYRUP 10GM/15ML (ENULOSE) 30ML UDC PO SCH (08:14)
--- NOTE | 2020-03-11 09:10 | Discharge Summary ---
Diagnosis/Chief Complaint Date of Admission Feb 29, 2020 at 13:16 Date of Discharge Discharge Date: Mar 11, 2020 Discharge Diagnosis Assessment: CVA with left sided weakness Smoker THC dependent Chronic pain DM insulin dependent HTN HLP PVD Right ankle ulcer Constipation Plan: Home meds Plavix, ASA, statin IRF protocol 03/01/20: Labs reviewed Pain control Aggressive therapy Wound care on ankle ulcer BM aggressive regimen 03/02/20: Hold Levemir Accucheck ac/hs SSI Lyrica may be an option 03/03/20: Change Gabapentin to QID prn and start Lyrica at night 50mg at her request Insulin adjusted down Doing well 03/04/20: PPI Monitor pain IRF protocol 03/05/20: Continue aggressive PT OT Increase Lyrica 03/06/20: Minimize insulin Lyrica 03/07/20: Gabapentin lower dose Monitor pain DC Wednesday03/08/20: Monitor sugar Pain management DC Wednesday03/09/20: Monitor sugar Monitor for new issues Chronic neuropathy will need PCP management (1) CVA (cerebral vascular accident) (2) Smoker (3) Methamphetamine use (4) Tetrahydrocannabinol (THC) dependence (5) Diabetes mellitus, insulin dependent (IDDM), uncontrolled (6) Hypertension (7) Hyperlipidemia (8) Frailty (9) PVD (peripheral vascular disease) (10) Ankle ulcer Discharge Summary Discharge Physical Examination Allergies: Coded Allergies: latex (Verified Allergy, Unknown, Hives, 02/29/20) simvastatin (Verified Allergy, Unknown, 02/29/20) Vitals & I&Os Vital Signs Date Time Temp Pulse Resp B/P (MAP) Pulse Ox O2 Delivery O2 Flow Rate FiO2 03/11/20 11:30 36.5 100 16 141/63 97 Room Air General Appearance: Alert, Oriented X3, Cooperative Respiratory: Clear to Auscultation Cardiovascular: Regular Rate Hospital Course Was the Problem List Reviewed?: Yes Hospital Course: Pt had an uneventful hospital course for twelve days after she was admitted after suffering a stroke. She had significant deficits but she was able to participate in therapy with the use of assistive devices and aggressive treatment. She was able to regain some function and be able to manage most of her ADLs independently. She will go home to live with her daughter. We did attempt to treat her neuropathy and peripheral vascular disease pain in her legs and feet. We did start her on Lyrica 100mg at night and did continue the Gabapentin she takes four times a day as needed. She will have close follow up with her PCP for further treatment on neuropathy but her feet were chronically cyanotic due to poor peripheral vascular disease circulatory supply and likely t hat will lead to more issues because of complications from diabetes. Labs (last 24 hrs) Laboratory Tests 02/29/20 15:29: Glucometer 307H 02/29/20 15:50: Urine Opiates Screen NEGATIVE, Urine Oxycodone Screen NEGATIVE, Urine Methadone Screen NEGATIVE, Urine Propoxyphene Screen NEGATIVE, Urine Barbiturates Screen NEGATIVE, Ur Tricyclic Antidepressants Screen NEGATIVE, Urine Phencyclidine Screen NEGATIVE, Urine Amphetamines Screen NEGATIVE, Urine Methamphetamines Screen NEGATIVE, Urine Benzodiazepines Screen NEGATIVE, Urine Cocaine Screen NEGATIVE, Urine Cannabinoids Screen POSITIVEH 02/29/20 20:12: Glucometer 257H 03/01/20 05:33: Glucometer 146H 03/01/20 10:25: White Blood Count 8.6, Red Blood Count 4.32, Hemoglobin 12.8, Hematocrit 39, Mean Corpuscular Volume 89, Mean Corpuscular Hemoglobin 30, Mean Corpuscular Hemoglobin Concent 33, Red Cell Distribution Width 13.0, Platelet Count 195, Mean Platelet Volume 10.5, Immature Granulocyte % (Auto) 0, Neutrophils (%) (Auto) 66, Lymphocytes (%) (Auto) 24, Monocytes (%) (Auto) 7, Eosinophils (%) (Auto) 3, Basophils (%) (Auto) 1, Neutrophils # (Auto) 5.7, Lymphocytes # (Auto) 2.1, Monocytes # (Auto) 0.6, Eosinophils # (Auto) 0.2, Basophils # (Auto) 0.1, Immature Granulocyte # (Auto) 0.0, Sodium Level 144, Potassium Level 4.1, Chloride Level 107, Carbon Dioxide Level 26, Anion Gap 11, Blood Urea Nitrogen 19H, Creatinine 0.58L, Estimat Glomerular Filtration Rate > 60, BUN/Creatinine Ratio 33, Glucose Level 198H, Mean Blood Glucose 364H, Hemoglobin A1c 14.3H, Calcium Level 8.3L, Corrected Calcium 9.0, Total Bilirubin 0.3, Aspartate Amino Transf (AST/SGOT) 9, Alanine Aminotransferase (ALT/SGPT) 11, Alkaline Phosphatase 71, Total Protein 5.4L, Albumin 3.1L 03/01/20 10:59: Glucometer 198H 03/01/20 15:39: Glucometer 180H 03/01/20 20:36: Glucometer 168H 03/02/20 05:41: Glucometer 42*L 03/02/20 05:57: Glucometer 56*L 03/02/20 06:16: Glucometer 132H 03/02/20 10:38: Glucometer 160H 03/02/20 15:15: Glucometer 133H 03/02/20 20:57: Glucometer 226H 03/03/20 04:58: Glucometer 178H 03/03/20 11:51: Glucometer 200H 03/03/20 15:51: Glucometer 189H 03/03/20 20:32: Glucometer 171H 03/04/20 05:38: White Blood Count 10.5, Red Blood Count 4.43, Hemoglobin 13.1, Hematocrit 39, Mean Corpuscular Volume 89, Mean Corpuscular Hemoglobin 30, Mean Corpuscular Hemoglobin Concent 33, Red Cell Distribution Width 12.7, Platelet Count 225, Mean Platelet Volume 11.2, Immature Granulocyte % (Auto) 0, Neutrophils (%) (Auto) 62, Lymphocytes (%) (Auto) 27, Monocytes (%) (Auto) 6, Eosinophils (%) (Auto) 3, Basophils (%) (Auto) 1, Neutrophils # (Auto) 6.6, Lymphocytes # (Auto) 2.9, Monocytes # (Auto) 0.7, Eosinophils # (Auto) 0.3, Basophils # (Auto) 0.1, Immature Granulocyte # (Auto) 0.0, Sodium Level 140, Potassium Level 3.6, Chloride Level 103, Carbon Dioxide Level 28, Anion Gap 9, Blood Urea Nitrogen 20H, Creatinine 0.54L, Estimat Glomerular Filtration Rate > 60, BUN/Creatinine Ratio 37, Glucose Level 166H, Calcium Level 8.6, Corrected Calcium 9.1, Total Bilirubin 0.3, Aspartate Amino Transf (AST/SGOT) 17, Alanine Aminotransferase (ALT/SGPT) 14, Alkaline Phosphatase 82, Total Protein 6.2L, Albumin 3.4 03/04/20 10:49: Glucometer 172H 03/04/20 16:19: Glucometer 176H 03/04/20 20:21: Glucometer 170H 03/05/20 06:17: Glucometer 101 03/05/20 10:50: Glucometer 131H 03/05/20 15:27: Glucometer 128H 03/05/20 20:22: Glucometer 178H 03/06/20 05:02: Glucometer 66L 03/06/20 09:04: Glucometer 114H 03/06/20 10:46: Glucometer 140H 03/06/20 16:00: Glucometer 143H 03/06/20 21:09: Glucometer 141H 03/07/20 05:49: Glucometer 118H 03/07/20 11:03: Glucometer 157H 03/07/20 16:03: Glucometer 181H 03/07/20 20:53: Glucometer 167H 03/08/20 05:50: Glucometer 108 03/08/20 11:05: Glucometer 157H 03/08/20 15:56: Glucometer 154H 03/08/20 20:06: Glucometer 166H 03/09/20 05:28: Glucometer 126H 03/09/20 12:05: Glucometer 253H 03/09/20 16:13: Glucometer 117H 03/09/20 21:20: Glucometer 145H 03/10/20 01:40: Glucometer 174H 03/10/20 05:57: Glucometer 120H 03/10/20 11:09: Glucometer 178H 03/10/20 16:42: Glucometer 179H 03/10/20 20:22: Glucometer 189H 03/11/20 06:45: Glucometer 141H 03/11/20 07:17: White Blood Count 11.2H, Red Blood Count 4.67, Hemoglobin 13.7, Hematocrit 42, Mean Corpuscular Volume 89, Mean Corpuscular Hemoglobin 29, Mean Corpuscular Hemoglobin Concent 33, Red Cell Distribution Width 12.6, Platelet Count 273, Mean Platelet Volume 10.9, Immature Granulocyte % (Auto) 1, Neutrophils (%) (Auto) 54, Lymphocytes (%) (Auto) 35, Monocytes (%) (Auto) 6, Eosinophils (%) (Auto) 4, Basophils (%) (Auto) 1, Neutrophils # (Auto) 6.1, Lymphocytes # (Auto) 3.9, Monocytes # (Auto) 0.6, Eosinophils # (Auto) 0.4H, Basophils # (Auto) 0.1, Immature Granulocyte # (Auto) 0.1, Sodium Level 141, Potassium Level 3.7, Chloride Level 99, Carbon Dioxide Level 31, Anion Gap 11, Blood Urea Nitrogen 22H, Creatinine 0.58L, Estimat Glomerular Filtration Rate > 60, BUN/Creatinine Ratio 38, Glucose Level 155H, Calcium Level 9.2, Corrected Calcium 9.2, Total Bilirubin 0.2, Aspartate Amino Transf (AST/SGOT) 11, Alanine Aminotransferase (ALT/SGPT) 17, Alkaline Phosphatase 79, Total Protein 6.9, Albumin 4.0 Pending Labs Laboratory Tests 02/29/20 15:29: Glucometer 307 02/29/20 15:50: Urine Opiates Screen NEGATIVE, Urine Oxycodone Screen NEGATIVE, Urine Methadone Screen NEGATIVE, Urine Propoxyphene Screen NEGATIVE, Urine Barbiturates Screen NEGATIVE, Ur Tricyclic Antidepressants Screen NEGATIVE, Urine Phencyclidine Screen NEGATIVE, Urine Amphetamines Screen NEGATIVE, Urine Methamphetamines Screen NEGATIVE, Urine Benzodiazepines Screen NEGATIVE, Urine Cocaine Screen NEGATIVE, Urine Cannabinoids Screen POSITIVE 02/29/20 20:12: Glucometer 257 03/01/20 05:33: Glucometer 146 03/01/20 10:25: White Blood Count 8.6, Red Blood Count 4.32, Hemoglobin 12.8, Hematocrit 39, Mean Corpuscular Volume 89, Mean Corpuscular Hemoglobin 30, Mean Corpuscular Hemoglobin Concent 33, Red Cell Distribution Width 13.0, Platelet Count 195, Mean Platelet Volume 10.5, Immature Granulocyte % (Auto) 0, Neutrophils (%) (Auto) 66, Lymphocytes (%) (Auto) 24, Monocytes (%) (Auto) 7, Eosinophils (%) (Auto) 3, Basophils (%) (Auto) 1, Neutrophils # (Auto) 5.7, Lymphocytes # (Auto) 2.1, Monocytes # (Auto) 0.6, Eosinophils # (Auto) 0.2, Basophils # (Auto) 0.1, Immature Granulocyte # (Auto) 0.0, Sodium Level 144, Potassium Level 4.1, Chloride Level 107, Carbon Dioxide Level 26, Anion Gap 11, Blood Urea Nitrogen 19, Creatinine 0.58, Estimat Glomerular Filtration Rate > 60, BUN/Creatinine Ratio 33, Glucose Level 198, Mean Blood Glucose 364, Hemoglobin A1c 14.3, Calcium Level 8.3, Corrected Calcium 9.0, Total Bilirubin 0.3, Aspartate Amino Transf (AST/SGOT) 9, Alanine Aminotransferase (ALT/SGPT) 11, Alkaline Phosphatase 71, Total Protein 5.4, Albumin 3.1 03/01/20 10:59: Glucometer 198 03/01/20 15:39: Glucometer 180 03/01/20 20:36: Glucometer 168 03/02/20 05:41: Glucometer 42 03/02/20 05:57: Glucometer 56 03/02/20 06:16: Glucometer 132 03/02/20 10:38: Glucometer 160 03/02/20 15:15: Glucometer 133 03/02/20 20:57: Glucometer 226 03/03/20 04:58: Glucometer 178 03/03/20 11:51: Glucometer 200 03/03/20 15:51: Glucometer 189 03/03/20 20:32: Glucometer 171 03/04/20 05:38: White Blood Count 10.5, Red Blood Count 4.43, Hemoglobin 13.1, Hematocrit 39, Mean Corpuscular Volume 89, Mean Corpuscular Hemoglobin 30, Mean Corpuscular Hemoglobin Concent 33, Red Cell Distribution Width 12.7, Platelet Count 225, Mean Platelet Volume 11.2, Immature Granulocyte % (Auto) 0, Neutrophils (%) (Auto) 62, Lymphocytes (%) (Auto) 27, Monocytes (%) (Auto) 6, Eosinophils (%) (Auto) 3, Basophils (%) (Auto) 1, Neutrophils # (Auto) 6.6, Lymphocytes # (Auto) 2.9, Monocytes # (Auto) 0.7, Eosinophils # (Auto) 0.3, Basophils # (Auto) 0.1, Immature Granulocyte # (Auto) 0.0, Sodium Level 140, Potassium Level 3.6, Chloride Level 103, Carbon Dioxide Level 28, Anion Gap 9, Blood Urea Nitrogen 20, Creatinine 0.54, Estimat Glomerular Filtration Rate > 60, BUN/Creatinine Ratio 37, Glucose Level 166, Calcium Level 8.6, Corrected Calcium 9.1, Total Bilirubin 0.3, Aspartate Amino Transf (AST/SGOT) 17, Alanine Aminotransferase (ALT/SGPT) 14, Alkaline Phosphatase 82, Total Protein 6.2, Albumin 3.4 03/04/20 10:49: Glucometer 172 03/04/20 16:19: Glucometer 176 03/04/20 20:21: Glucometer 170 03/05/20 06:17: Glucometer 101 03/05/20 10:50: Glucometer 131 03/05/20 15:27: Glucometer 128 03/05/20 20:22: Glucometer 178 03/06/20 05:02: Glucometer 66 03/06/20 09:04: Glucometer 114 03/06/20 10:46: Glucometer 140 03/06/20 16:00: Glucometer 143 03/06/20 21:09: Glucometer 141 03/07/20 05:49: Glucometer 118 03/07/20 11:03: Glucometer 157 03/07/20 16:03: Glucometer 181 03/07/20 20:53: Glucometer 167 03/08/20 05:50: Glucometer 108 03/08/20 11:05: Glucometer 157 03/08/20 15:56: Glucometer 154 03/08/20 20:06: Glucometer 166 03/09/20 05:28: Glucometer 126 03/09/20 12:05: Glucometer 253 03/09/20 16:13: Glucometer 117 03/09/20 21:20: Glucometer 145 03/10/20 01:40: Glucometer 174 03/10/20 05:57: Glucometer 120 03/10/20 11:09: Glucometer 178 03/10/20 16:42: Glucometer 179 03/10/20 20:22: Glucometer 189 03/11/20 06:45: Glucometer 141 03/11/20 07:17: White Blood Count 11.2, Red Blood Count 4.67, Hemoglobin 13.7, Hematocrit 42, Mean Corpuscular Volume 89, Mean Corpuscular Hemoglobin 29, Mean Corpuscular Hemoglobin Concent 33, Red Cell Distribution Width 12.6, Platelet Count 273, Mean Platelet Volume 10.9, Immature Granulocyte % (Auto) 1, Neutrophils (%) (Auto) 54, Lymphocytes (%) (Auto) 35, Monocytes (%) (Auto) 6, Eosinophils (%) (Auto) 4, Basophils (%) (Auto) 1, Neutrophils # (Auto) 6.1, Lymphocytes # (Auto) 3.9, Monocytes # (Auto) 0.6, Eosinophils # (Auto) 0.4, Basophils # (Auto) 0.1, Immature Granulocyte # (Auto) 0.1, Sodium Level 141, Potassium Level 3.7, Chloride Level 99, Carbon Dioxide Level 31, Anion Gap 11, Blood Urea Nitrogen 22, Creatinine 0.58, Estimat Glomerular Filtration Rate > 60, BUN/Creatinine Ratio 38, Glucose Level 155, Calcium Level 9.2, Corrected Calcium 9.2, Total Bilirubin 0.2, Aspartate Amino Transf (AST/SGOT) 11, Alanine Aminotransferase (ALT/SGPT) 17, Alkaline Phosphatase 79, Total Protein 6.9, Albumin 4.0 Discharge Home Medications: Active Scripts Active Levemir (Insulin Determir) 1,000 Units/10 Ml Soln 3 Unit SQ BID 7 Days Pantoprazole Sodium 40 Mg Tablet.dr 40 Mg PO DAILY Sucralfate 1 Gm Tablet 1 Gm PO ACHS PRN Lyrica (Pregabalin) 100 Mg Capsule 100 Mg PO HS Gabapentin 600 Mg Tablet 600 Mg PO QID PRN Reported Duloxetine HCl 60 Mg Capsule.dr 60 Mg PO DAILY TAKES 30MG +60MG TO EQUAL 90MG DAILY Trazodone HCl 50 Mg Tablet 50 Mg PO HS Miralax (Polyethylene Glycol 3350) 17 Gm Powd.pack 17 Gm PO DAILY PRN Ondansetron Odt (Ondansetron) 4 Mg Tab.rapdis 4 Mg PO Q8H PRN Montelukast Sodium 10 Mg Tablet 10 Mg PO HS Metformin HCl 1,000 Mg Tablet 1,000 Mg PO BID WITH MEALS Loratadine 10 Mg Tablet 10 Mg PO DAILY PRN Lantus (Insulin Glargine,Hum.rec.anlog) 100 Unit/1 Ml Vial 40 Unit SQ BID Novolog (Insulin Aspart) 100 Unit/1 Ml Susp Unit SQ AC USE PER SLIDING SCALE SCALE NOT INCLUDED IN DISCHARGE PAPERWORK Flonase Allergy Relief (Fluticasone Propionate) 9.9 Ml [place].susp 2 [place] NS DAILY PRN Dulera 100 Mcg/5 Mcg Inhaler (Mometasone/Formoterol) 13 Gm Hfa.aer.ad 2 Puff IH BID Plavix (Clopidogrel Bisulfate) 75 Mg Tablet 75 Mg PO DAILY Vitamin D3 (Cholecalciferol (Vitamin D3)) 50 Mcg Tablet 100 Mcg PO DAILY Refresh Tears (Carboxymethylcellulose Sodium) 15 Ml Drops 1 Drop OU DAILY PRN Nesina (Alogliptin Benzoate) 25 Mg Tablet 25 Mg PO DAILY Proair Hfa (Albuterol Sulfate) 1 Puff Puff 1-2 Puff IH Q4 -6H PRN Atorvastatin Calcium 40 Mg Tablet 40 Mg PO HS Aspirin EC (Aspirin) 81 Mg Tablet.dr 81 Mg PO DAILY Amlodipine Besylate 2.5 Mg Tablet 2.5 Mg PO DAILY Instructions to patient/family Please see electronic discharge instructions given to patient. Diagnosis/Problems Diagnosis/Problems (1) CVA (cerebral vascular accident) (2) Smoker (3) Methamphetamine use (4) Tetrahydrocannabinol (THC) dependence (5) Diabetes mellitus, insulin dependent (IDDM), uncontrolled (6) Hypertension (7) Hyperlipidemia (8) Frailty (9) PVD (peripheral vascular disease) (10) Ankle ulcer Clinical Quality Measures DVT/VTE Risk/Contraindication: Risk Factor Score Per Nursin RFS Level Per Nursing on Admit: 2=Moderate JESI MCDONALD DO Mar 11, 2020 09:10
--- NOTE | 2020-03-11 10:12 | Occupational Ther Daily Note ---
OT Current Status-Daily Note Subjective Pt sleeping in recliner. Pt agrees to therapy. No c/o pain only fatigue. Pt to discharge to home today with daughter. Family training to be at 10:00 am. Mental Status/Objective Patient Orientation: Person, Place, Time, Situation Attachments: Other-See Comments (AFO L foot) ADL-Treatment 1st session ([phone])Pt agrees to shower. Pt ambulated using FWW to closet with SBA for safety and sat in chair to retrieve clothing by self. Transported clothing on FWW, ambulated to bathroom. Transferred to toilet with SBA for safety. Completed hygiene and clothing manipulation, independently. Transferred into shower with SBA for safety. Completed shower independently sitting on shower bench to cleanse all areas using hand held shower and gr abbars. Pt donned/doffed upper body and footwear independently. Threaded feet into lower body clothing independently then SBA for safety as pt hiked pants over hips. Pt stood independently at sink to complete grooming, using clinical judgement pt able to complete oral care standing at sink independently. After session, pt sitting in recliner with call light/phone in reach. All needs met in room. Therapy Code Descriptions/Definitions Functional [place] Measure: 0=Not Assessed/NA 4=Minimal Assistance 1=Total Assistance 5=Supervision or Setup 2=Maximal Assistance 6=Modified [place] 3=Moderate Assistance 7=Complete IndependenceSCALE: Activities may be completed with or without assistive devices. 9-Mucqzyzbxe-ozamobh completes the activity by him/herself with no assistance f rom a helper. 5-Set-up or Clean-up Assistance-helper sets up or cleans up; patient completes activity. [place] assists only prior to or following the activity. 4-Supervision or Touching Assistance-helper provides verbal cues and/or touching/steadying and/or contact guard assistance as patient completes activity. Assistance may be provided throughout the activity or intermittently. 3-Partial/Moderate Assistance-helper does LESS THAN HALF the effort. [place] lifts, holds or supports trunk or limbs, but provides less than half the effort. 2-Substantial/Maximal Assistance-helper does MORE THAN HALF the effort. [place] lifts or holds trunk or limbs and provides more than half the effort. 9-Iqmiopgbg-htlyes does ALL the effort. Patient does none of the effort to complete the activity. Or, the assistance of 2 or more helpers is required for the patient to complete the activity. If activity was not attempted, code reason: 7-Patient Refused. 9-Not Applicable-not attempted and the patient did not perform the activity before the current illness, exacerbation or injury. 10-Not Attempted due to Environmental Limitations-(lack of equipment, weather restraints, etc.). 88-Not Attempted due to Medical Conditions or Safety Concerns. Eating (QC): 6 (Using clinical judgment, pt able to complete independently.) Oral Hygiene (QC): 6 Shower/Bathe Self (QC): 6 Upper Body Dressing (QC): 6 Lower Body Dressing (QC): 4 On/Off Footwear: 6 Toileting Hygiene (QC): 6 Toilet Transfer (QC): 4 Other Treatment 2nd session([id number]) Co-treat with PT for family training with friend and daughter. Pt to go home with daughter. Pt has handicapped accessible bathroom and AD at home. Discussed with family about pt's ADL abilities and continued issues with slight balance issues and family needs to be close to pt during ADLs due to balance issues. Pt left in care of PT. OT Short Term Goals Short Term Goals Time Frame: Mar 13, 2020 Shower/bathe self: 5 Upper body dressin Lower body dressin Putting on/taking off footwear: 5 OT Mcc Goals Mcc Goals Time Frame: Mar 22, 2020 Eating (QC): 6 (met) Oral Hygiene (QC): 6 (met) Toileting Hygiene (QC): 6 (met) Shower/Bathe Self (QC): 6 (met) Upper Body Dressing (QC): 6 (met) Lower Body Dressing (QC): 6 (not met) On/Off Footwear (QC): 6 (met) Additional Goals: 1-Demonstrate ADL Tasks, 2-Verbalize Understanding, 3-Im proveStrength/Cici 1=Demonstrate adherence to instructed precautions during ADL tasks. 2=Patient will verbalize/demonstrate understanding of assistive devices/modifications for ADL. 3=Patient will improve strength/tolerance for activity to enable patient to perform ADL's. OT Education/Plan Problem List/Assessment Assessment: Impaired Funct Balance, Impaired Self-Care Skills Discharge Recommendations Plan/Recommendations: Discharge/Goals Met (to home with family) Treatment Plan/Plan of Care Patient would benefit from OT for education, treatment and training to promote independence in ADL's, mobility, safety and/or upper extremity function for ADL's. Plan of Care: ADL Retraining, Functional Mobility, Group Exercise/Act as Ind, UE Funct Exercise/Act, UE Neuromus Re-Ed/Coord Treatment Duration: Mar 22, 2020 Frequency: At least 5 of 7 days/Wk (IRF) Estimated Hrs Per Day: 1.5 hours per day (1-1.5 hours per day) Agreement: Yes Rehab Potential: Fair Time/GCodes Start Time: 08:50 ([id number]) Stop Time: 10:15 ([id number]) Total Time Billed (hr/min): 55 Billed Treatment Time 2 visits-ADL 3 (40 min) FA 1 (15 min) co-treat with PT [id number], individual [id number] ANICETO BURGER Mar 11, 2020 10:12
--- NOTE | 2020-03-11 10:42 | Physical Therapy Daily Note ---
PT Daily Note-Current Subjective Patient in recliner pre tx, agrees to PT, has no complaints of pain. Will be doing family training today, will be co-treating with OT for a bit to both do family training while family is here, patient is discharging right after. Appearance Patient in recliner post tx with nurse call, phone, tray, all needs met. Mental Status Patient Orientation: Person, Place, Situation Transfers SCALE: Activities may be completed with or without assistive devices. 8-Kixrrgscxw-dwultsa completes the activity by him/herself with no assistance from a helper. 5-Set-up or Clean-up Assistance-helper sets up or cleans up; patient completes activity. [place] assists only prior to or following the activity. 4-Supervision or Touching Assistance-helper provides verbal cues and/or touching/steadying and/or contact guard assistance as patient completes activity. Assistance may be provided throughout the activity or intermittently. 3-Partial/Moderate Assistance-helper does LESS THAN HALF the effort. [place] lifts, holds or supports trunk or limbs, but provides less than half the effort. 2-Substantial/Maximal Assistance-helper does MORE THAN HALF the effort. [place] lifts or holds trunk or limbs and provides more than half the effort. 5-Gemscbqxb-anueiy does ALL the effort. Patient does none of the effort to complete the activity. Or, the assistance of 2 or more helpers is required for the patient to complete the activity. If activity was not attempted, code reason: 7-Patient Refused. 9-Not Applicable-not attempted and the patient did not perform the activity before the current illness, exacerbation or injury. 10-Not Attempted due to Environmental Limitations-(lack of equipment, weather restraints, etc.). 88-Not Attempted due to Medical Conditions or Safety Concerns. Roll Left & Right (QC): 6 Sit to Lying (QC): 6 Lying to Sitting/Side of Bed(Q: 6 Sit to Stand (QC): 4 Chair/Ehw-un-Xvvsd Xfer(QC): 4 Toilet Transfer (QC): 4 Car Transfer (QC): 4 Patient performs bed mobility and supine <-> sit with independence, sit <-> stand and transfers with CGA, car transfer CGA. Patient has some difficulty with supine <-> but can do it without assist. Occasional cues for hand placement during transfers. Weight Bearing Full Weight Bearing Full Weight Bearing Gait Training Distance: 200'x2 Walk 10 feet (QC): 4 Walk 50 ft with 2 Turns(QC): 4 Walk 150 ft (QC): 4 Walking 10ft/uneven surface-QC: 4 Gait Persons Needed: 1 Gait Assistive Device: FWW Patient can ambulate 200' with a rolling walker with CGA (including 50' with at least 2 turns of 90 degrees and 10' over an uneven surface). Patient has uncoordinated steps with left leg, wears a left AFO, has occasional unsteadiness (CGA), family instructed on how to be with patient during ambulation due to unsteadiness. Wheelchair Training Does the Pt Use a Wheelchair?: No Wheel 50 ft with 2 turns (QC): 9 Wheel 150 ft (QC): 9 Stair Training Stair Training: Handrails/: 1 handrail #of Steps: 4 1 Step (curb) (QC): 4 4 Steps (QC): 4 12 Steps (QC): 88 Stairs: Pattern: Step to Patient can go up and down 4 steps using 2 handrails with CGA, step-to on stairs . Treatments bed mobility and transfers, ambulation, stairs Assessment Current Status: Fair Progress Patient still has an occasional LOB during ambulation and turns, stressed this fact to family that they need to guard her carefully. PT Short Term Goals Short Term Goals Time Frame: Mar 07, 2020 Roll Left & Right: 6 Sit to lyin Lying to sitting on side of be: 6 Sit to stand: 4 Chair/hhf-ze-cndaw transfer: 4 Walk 10 feet: 4 Walk 50 feet with two turns: 4 Walk 150 feet: 4 PT National Insurance Officer Goals Senior Living Goals PT National Insurance Officer Goals Time Frame: Mar 21, 2020 Roll Left & Right (QC): 6 Sit to Lying (QC): 6 Lying-Sitting on Side/Bed(QC): 6 Sit to Stand (QC): 4 (SBA) Chair/Plx-vb-Qfdhy Xfer(QC): 4 (SBA) Toilet Transfer (QC): 4 (SBA) Car Transfer (QC): 4 (SBA) Does the Patient Walk: Yes Walk 10 feet (QC): 4 (SBA) Walk 50ft with 2 Turns (QC): 4 (SBA) Walk 150 ft (QC): 4 (SBA) Walking 10ft on Uneven Surface: 4 (SBA) 1 Step (curb) (QC): 4 (CGA) 4 Steps (QC): 4 (CGA) 12 Steps (QC): 88 Picking up an Object (QC): 88 Does the Pt use WC or Scooter?: No Wheel 50 feet with 2 turns (QC: 6 Wheel 150 feet: 6 PT Plan Problem List Problem List: Activity Tolerance, Functional Strength, Safety, Balance, Gait, Transfer, Bed Mobility, ROM Treatment/Plan Treatment Plan: Continue Plan of Care Treatment Plan: Bed Mobility, Education, Functional Activity Cici, Functional Strength, Group Therapy, Gait, Safety, Therapeutic Exercise, Transfers Treatment Duration: Mar 21, 2020 Frequency: At least 5 of 7 days/Wk (IRF) Estimated Hrs Per Day: 1.5 hours per day Patient and/or Family Agrees t: Yes Safety Risks/Education Patient Education: Gait Training, Transfer Techniques, Steps, Correct Positioning, Safety Issues Teaching Recipient: Patient Teaching Methods: Demonstration, Discussion Response to Teaching: Reinforcement Needed Time/GCodes Time In: 1000 Time Out: 1030 Total Billed Treatment Time: 30 Total Billed Treatment 1 visit FA 30' co-treated with OT from [id number] HENRY QUILES PT Mar 11, 2020 10:42
[2020-03-11 11:30] VITALS: BP 141/63
--- NOTE | 2020-03-11 11:42 | NUR ---
CM/SS DISCHARGE Patient's sister Earlene Moseley and daughter Danyell Stevens here this a.m. as scheduled for family education and training. Discharge approved. [facility]: Online Services Manager approached 9 home health agencies in patient's service area and all denied services due to only insurance as Medicaid [place]. They stated that Medicaid does not reimburse for therapy in the home. THERAPY: Online Services Manager then contacted patient's PCP office at [facility] and spoke with Elderly Companion Peggy. Confirmed they have an outpatient therapy program there, Peggy will call patient to schedule a followup with Dr. Schmidt and also enroll patient in the therapy services. Updated patient and her family re same. Online Services Manager faxed continuum of care information to Peggy on patient's behalf. DME: No new DME needed. Unit RN aware of all timelines.
--- NOTE | 2020-03-11 15:45 | Therapy Team Discharge Summary ---
Therapy Discharge Summary Discharge Recommendations Date of Discharge Physical Therapy Patient came to rehab following a CVA. Upon evaluation patient performed rolling and supine <-> sit with SBA (she has some difficulty getting left leg into and out of bed but can do it without assist), sit <-> stand and transfers min assist, car transfer min assist, ambulated 60' with a rolling walker with min assist (including 50' with at least 2 turns of 90 degrees and 10' over an uneven surface), propelled a manual WC 50' with min assist, and went up and down 1 step using a rolling walker with min assist. Patient has been performing bed mobility and transfer training, balance and endurance training, functional strengthening, stair training, gait training, and education. Patient has made fair progress but has only met her LTG for bed mobility, supine <-> sit, and stairs. Now, patient performs bed mobility and supine <-> sit with independence, sit <-> stand and transfers with CGA, car transfer CGA, ambulates 200' with a rolling walker with CGA (including 50' with at least 2 turns of 90 degrees and 10' over an uneven surface), and can go up and down 4 steps using 2 handrails with CGA. Patient is being discharged from this facility today and will be discharged from PT at this time. Occupational Therapy Impaired Funct Balance, Impaired Self-Care Skills PT Starter Cup Powder Mixer Goals Starter Cup Powder Mixer Goals PT [facility] Goals Time Frame: Mar 21, 2020 Roll Left to Right (QC): 6 Sit to Lying (QC): 6 Lying-Sitting on Side/Bed(QC): 6 Sit to Stand (QC): 4 (SBA) Chair/Cuj-in-Gldjp Xfer(QC): 4 (SBA) Car Transfer (QC): 4 (SBA) Does the Patient Walk: Yes Walk 10 feet (QC): 4 (SBA) Walk 10ft-Uneven Surface(QC): 4 (SBA) Walk 50ft with 2 Turns (QC): 4 (SBA) Walk 150 ft (QC): 4 (SBA) Does the Pt use WC or Scooter?: No Wheel 50 feet with 2 turns (QC: 6 1 Step (curb) (QC): 4 (CGA) 4 Steps (QC): 4 (CGA) 12 Steps (QC): 88 Picking up an Object (QC): 88 OT Starter Cup Powder Mixer Goals [facility]cf Goals Time Frame: Mar 22, 2020 Eating (FIM): 6 Eating (QC): 6 (met) Oral Hygiene (QC): 6 (met) Shower/Bathe Self (QC): 6 (met) Upper Body Dressing (QC): 6 (met) Lower Body Dressing (QC): 6 (not met) On/Off Footwear (QC): 6 (met) Toileting(FIM): 6 Toileting Hygiene (QC): 6 (met) Toilet/Commode Transfer (QC): 4 (SBA) Additional Goals: 1-Demonstrate ADL Tasks, 2-Verbalize Understanding, 3- ImproveStrength/Cici 1=Demonstrate adherence to instructed precautions during ADL tasks. 2=Patient will verbalize/demonstrate understanding of assistive devices/modifications for ADL. 3=Patient will improve strength/tolerance for activity to enable patient to perform ADL's. HENRY QUILES PT Mar 11, 2020 15:45
--- NOTE | 2020-03-12 14:56 | Therapy Team Discharge Summary ---
Therapy Discharge Summary Discharge Recommendations Date of Discharge Mar 11, 2020 at 11:30 Occupational Therapy Pt admitted to ARU 02/29/2020 with s/p CVA. At [facility], pt was independent with f unctional mobility without AD, and independent with bathing, dressing (except shoelaces), cooking and cleaning. Upon evaluation, pt was independent with eating, required CGA oral care, CGA showering, min A upper body dressing, CGA lower body dressing, SBA footwear, and CGA toileting. OT txs focused on increasing safety and independence with ADLs and functional mobility, increasing BUE strength and functional endurance, and increasing functional use of LUE. Pt made good progress towards goals, meeting independent level with all LTGs except lower body dressing where she required SBA. Pt's home is handicap accessible, no further equipment recommended at this time. Pt discharged from facility, d/c from OT. Impaired Funct Balance, Impaired Self-Care Skills PT Bilingual Student Tutor Goals Fpc Goals PT Fpc Goals Time Frame: Mar 21, 2020 Roll Left to Right (QC): 6 Sit to Lying (QC): 6 Lying-Sitting on Side/Bed(QC): 6 Sit to Stand (QC): 4 (SBA) Chair/Iik-fy-Ltfyy Xfer(QC): 4 (SBA) Car Transfer (QC): 4 (SBA) Does the Patient Walk: Yes Walk 10 feet (QC): 4 (SBA) Walk 10ft-Uneven Surface(QC): 4 (SBA) Walk 50ft with 2 Turns (QC): 4 (SBA) Walk 150 ft (QC): 4 (SBA) Does the Pt use WC or Scooter?: No Wheel 50 feet with 2 turns (QC: 6 1 Step (curb) (QC): 4 (CGA) 4 Steps (QC): 4 (CGA) 12 Steps (QC): 88 Picking up an Object (QC): 88 OT Fpc Goals Fpc Goals Time Frame: Mar 22, 2020 Eating (QC): 6 (met) Oral Hygiene (QC): 6 (met) Shower/Bathe Self (QC): 6 (met) Upper Body Dressing (QC): 6 (met) Lower Body Dressing (QC): 6 (not met) On/Off Footwear (QC): 6 (met) Toileting Hygiene (QC): 6 (met) Toilet/Commode Transfer (QC): 4 (SBA) Additional Goals: 1-Demonstrate ADL Tasks, 2-Verbalize Understanding, 3- ImproveStrength/Cici 1=Demonstrate adherence to instructed precautions during ADL tasks. 2=Patient will verbalize/demonstrate understanding of assistive devices/modifications for ADL. 3=Patient will improve strength/tolerance for activity to enable patient to perform ADL's. CHAGO HULL OT Mar 12, 2020 14:55
--- NOTE | 2020-03-12 17:00 | NUR ---
Call placed to Paula Wolfe, pt's PCP at [facility] in [place], [place], & notified that according to pt's Discharge form from previous hospital, it was recommended for pt to follow up w Neurology in 3-4 weeks from discharge from there. Upon reading through pt's records from [facility], pt had tele-neurology visit while in ED. Pt was not established w a Neurologist at [facility]. Left message regarding this, & that it was recommended for pt to follow up w Neurologist.
--- NOTE | 2020-03-12 17:08 | NUR ---
Call to pt's number, , that she had given to me yesterday as her cell number, & notified of call placed to her PCP Paula Wolfe's office in [place], [place] as previously charted, to follow up w Neurologist in 3-4 weeks as recommended.
== END 2020-03-11 11:30 | disposition home or self-care (01) | DRG 57 ==
PROVIDERS: ADMIT Internal Medicine; ATTEND Internal Medicine
DX: I69.354 Hemiplegia and hemiparesis following cerebral infarction affecting left non-dominant side (principal); L97.319 Non-pressure chronic ulcer of right ankle with unspecified severity; I69.398 Other sequelae of cerebral infarction; R26.89 Other abnormalities of gait and mobility; I10 Essential (primary) hypertension; E11.40 Type 2 diabetes mellitus with diabetic neuropathy, unspecified; E11.51 Type 2 diabetes mellitus with diabetic peripheral angiopathy without gangrene; E11.649 Type 2 diabetes mellitus with hypoglycemia without coma; K59.00 Constipation, unspecified; K21.9 Gastro-esophageal reflux disease without esophagitis; R25.2 Cramp and spasm; G47.9 Sleep disorder, unspecified; F17.200 Nicotine dependence, unspecified, uncomplicated; F12.20 Cannabis dependence, uncomplicated; F41.9 Anxiety disorder, unspecified; F32.9 Major depressive disorder, single episode, unspecified; G89.29 Other chronic pain; M54.9 Dorsalgia, unspecified; E78.5 Hyperlipidemia, unspecified; Z79.4 Long term (current) use of insulin; Z86.73 Personal history of transient ischemic attack (TIA), and cerebral infarction without residual deficits; Z79.82 Long term (current) use of aspirin; Z79.899 Other long term (current) drug therapy; Z88.8 Allergy status to other drugs, medicaments and biological substances; Z91.040 Latex allergy status
CPT/HCPCS: 36415; 80053; 80306; 82962; 83036; 85025; 94640; 94760